=== PATIENT | female | born 1985 | race Caucasian/White ===

== ENCOUNTER 2023-05-07 21:04 | Emergency (ER) | payer OTHER, SELFPAY ==
[2023-05-07 21:06] VITALS: BP 122/69
[2023-05-07 22:01] VITALS: BMI 25.5
--- NOTE | 2023-05-07 22:03 | ED.GENMED ---
History of Present Illness
General
Chief Complaint: Abdominal Pain
Source: patient
Exam Limitations: none
Time Seen by Provider: 05/07/23 21:17
Travel History
Have you had any contact with someone who has COVID-19?: No
Do you have any symptoms of coronavirus? Fever > 100 degrees, chills, cough, shortness of breath, sore throat, loss of taste or smell, muscle aches, or headache?: No
History of Present Illness
History of Present Illness:
This is a 37 year old female that comes in with c/o abd pain. States that she started with some back discomfort yesterday afternoon. States that she was taking Ibuprofen and this seemed to help. Then today she has abd pain in the lower abd and the
Ibuprofen was not helping. Sates that she did have some chills, SOB, nausea, and felt dizzy when she got up as she was laying in bed all day. Denies any fever, chest pain, vomiting, diarrhea, urinary burning.
Past History
Past History
ED Past Medical History: Psychiatric (Anxiety) and Other (Anemia, )
ED Past Surgical History: Gynecological (Ovarian cyst)
Social History
Tobacco: Non-smoker
Alcohol: Occasional
Personal:
Living: with family
Employment: Employed
Review of Systems
Review of Systems
All Other Systems: ROS reviewed and negative except as documented in HPI and ROS
Constitutional: Reports chills; Denies fever
EENT: Reports no symptoms
Respiratory: Reports trouble breathing; Denies cough
Cardiac: Reports no symptoms; Denies chest pain
ABD/GI: Reports abdominal pain and nausea; Denies vomiting or diarrhea
: Reports no symptoms; Denies dysuria, frequency or urgency
Musculoskeletal: Reports no symptoms
Skin: Reports no symptoms
Neurological: Reports dizzy (When she got up); Denies headache
Psychiatric: Reports no symptoms
Phy Exam
General Physical Exam
General Presentation: mild distress
General age: appears stated age
General Skin: warm and dry
General Habitus: normal
General Mental: alert
General Hydration: appears well hydrated
ENT Exam
ENT Exam: TM's normal, pharynx normal and neck supple
Eye Exam
Eye Exam: EOMI
Cardiovascular Exam
Cardiovascular Exam: regular rate/rhythm, no edema, no murmur and normal peripheral pulses
Pulmonary Exam
Pulmonary Exam: lungs clear, no respiratory distress, no rales, chest non tender, no crackles, no rhonchi, no wheezing and no cough
Gastrointestinal Exam
Gastrointestinal Exam: normal bowel sounds, soft, no organomegaly, no pulsatile mass, non distended and tender (Lower abd tenderness with palpation)
Musculoskeletal Exam
Musculoskeletal Exam: full ROM and no edema
Skin Exam
Skin Exam: normal color, warm/dry, no rash and no petechia
Psychiatric Exam
Psychiatric Exam: normal mood/affect
Course
Orders/Labs/Results
Orders:
Orders
05/07/23 21:59
0.9% Sodium Chloride 1000 ml [Nss] 1,000 ml IV BOLUS
Morphine Sulfate 4 mg IV NOW STA
Test Result ONCE
05/07/23 22:00
US Pelvis W Transvag Combined Urgent
Reason For Exam: lOWER ABD PAIN
05/07/23 22:19
Complete Blood Count/With Diff Urgent
Comprehensive Metabolic Panel Urgent
HCG, Serum Qualitative Screen Urgent
Lipase Urgent
05/07/23 22:23
Ondansetron Injectable [Zofran] 4 mg .ROUTE .STK-MED ONE
Ondansetron Injectable [Zofran] 4 mg IV NOW STA
05/07/23 23:46
Urinalysis Reflex To Culture Urgent
Date Specimen was Collected: 05/07/23
Time Specimen was Collected: 23:44
05/08/23 00:00
CT Abd/pelvis W Iv Cont Urgent
Reason For Exam: lOWER ABD PAIN
05/08/23 00:10
Add On- LAB Urgent
Tests Added?: Urine GC, chlamydia
HYDROmorphone [Dilaudid] 1 mg IV NOW STA
Ondansetron Injectable [Zofran] 4 mg IV NOW STA
Abnormal Lab Results
05/07/23 05/07/23
22:19 23:46
WBC 10.9 H 10^3/uL
(4.8-10.8)
RBC 3.95 L 10^6/uL
(4.20-5.40)
Hgb 11.6 L g/dL
(12.0-16.0)
Hct 33.0 L %
(37.0-47.0)
MPV 10.5 H fL
(7.4-10.4)
Abs Immat Gran (auto) 0.1 H 10^3/uL
(0-0.05)
Absolute Neuts (auto) 10.4 H 10^3/uL
(1.4-6.5)
Absolute Lymphs (auto) 0.2 L 10^3/uL
(1.2-3.4)
Neutrophils % 95.0 H %
(42.2-75.2)
Lymphocytes % 1.9 L %
(20.5-51.1)
Sodium 132 L mmol/L
(135-145)
Glucose 120 H mg/dl
(70-99)
Urine Ketones 2+ A
(Negative)
05/07/23 22:19
05/07/23 22:19
H/H slightly low. Sodium slightly low. Glucose nonfasting. Urine negative for infection. Lipase normal at 47, HCG negative.
Vital Signs
Initial and Last Documented VS:
Initial Vital Signs
Temp Pulse Resp BP Pulse Ox
100.1 F 108 22 122/69 100
05/07/23 21:06 05/07/23 21:06 05/07/23 21:06 05/07/23 21:06 05/07/23 21:06
Last Documented Vital Signs
Temp Pulse Resp BP Pulse Ox
100.1 F 90 22 100/54 100
05/07/23 21:06 05/07/23 23:48 05/07/23 21:06 05/08/23 00:00 05/08/23 00:00
MDM/Problems Addressed
Differential Diagnosis Includes:
Ruptured ovarian cyst. Diverticulitis, Appendicitis
MDM/Problems Addressed:
This is a 37 year old female that comes in with c/o lower abd Pain. States that she started yesterday with some back pain. Then today she has abd pain in the lower abd. Patient denies a fever but has a fever here. States that she had chills, felt
SOB and nauseated. State that she took Ibuprofen for but this did not help her pain.
Will get labs, Ultrasound of pelvic and CT if Ultrasound is negative.
Back into see patient. Explained that her US shows that she most likely had a ruptured ovarian cyst. There is free fluid in the pelvis. Questioned patient at this time if there is any vaginal discharge or fowl smell and patient denies. Will the low
grade fever, will get CT to make sure there is not other disease process such as diverticulitis or appendicitis. Patient is in agreement.
Back into see patient. Explained that the CT again shows the free fluid but there is no other acute process such as diverticulitis or appendicitis. Offered patient a pelvic exam but as patient is not having any discharged, fowl smell the likelihood
in PID is low in the differential. Patient will follow up with her [facility]. Explained that this free fluid will be absorbed by the body. Patient can use Tylenol 1000mg every 6 hours and Ibuprofen 600mg every 6 hours with food for pain. Heating pad
may also help control pain. Patient to return with any concerns.
Chronic conditions affecting care: Other (history of ovarian cyst)
Acute Exacerbation and/or Progression of Chronic Illness: Other (Ovarian cyst. )
*Radiology
Radiology exam reviewed: radiology read reviewed (US=mODERATE COMPLEX FREE FLUID IN THE PELVIS THAT MAY BE DUE TO SMALL VOLUME HEMOPERITONEUM, possibly from a ruptured cyst, or possibly gynecologic infection in the appropriate clinical setting.
Uterus is retroflexed and there is suggestion of widened junctional zone suspicious for adenomyosis. ), all reviewed NAD by ED Provider (US cont- Endometrial thickness is 4mm. Multiple right ovary and follicles. Normal doppler flow. Multiple left
ovarian follicles. Normal doppler flow. CT scan night hawk- Small volume intermediate density fluid in the pelvis is nonspecific. This is not bernie hemoperitoneum. The urinary bladder wall) and other (CT cont-is thickened but non distended. This
may indicated cystitis. Correlate with urinalysis. No obstructive uropathy. Small hepatic hypoattenuating lesions are likely simple cyst or small hemangiomas. No evidence of diverticulitis or colitis. Normal appendix. No bowel obstruction. No free
air. )
*Pulse Oximetry
Patient hypoxic: no
*EKG
Interpreted by ED Provider?: NA
Rate: EKG- N/A
*Lining Cementer Interpretation
Rate: Lining Cementer- N/A
*Critical Care Note
Total Time (30-74mins, 75-104mins- exclusive of procedures): Not Applicable
ED Attending Note
-
Portions of this chart may have been created with voice recognition software.� Occasional wrong word or��sound alike� substitutions may have occurred due to the inherent limitations of voice recognition software.
Discharge Plan
Departure
Patient Disposition: Home (Routine Discharge)
Date of Disposition: 05/08/23
Time of Disposition: 01:07
Patient with high blood pressure during this ER visit?: No
Condition: Good
Covid-19: Not Applicable
Discharge Problem:
Rupture of ovarian cyst
Instructions: Ovarian Cyst (DC)
Prescriptions:
No Action
sertraline 25 MG tablet
100 mg PO DAILY
Vitamin Tablet
1 tab PO DAILY
Dha
1 tab PO DAILY
acetaminophen 325 MG tablet
650 mg PO Q4HPRN PRN (Reason: mild pain) 0RF
sennosides-docusate sodium 1 TABLET tablet
1 tab PO DAILYPRN PRN (Reason: constipation) 0RF
ibuprofen 600 MG tablet
400 mg PO Q4HPRN PRN (Reason: moderate pain/cramps) 0RF
Referrals:
PRIVATE,PHYSICIAN [Family Provider] -
Activity Restrictions/Additional Instructions:
As discussed, your blood work shows that your sodium is very slightly low. Your Urine is negative for infection. Your US and CT show that there is free fluid in the pelvis. This is most likely due to a ruptured ovarian cyst. Please follow up with
the [facility] for further evaluation. You may use Tylenol 1000mg every 6 hours for pain and alternate with Ibuprofen 600mg every 6 hours with food for pain. Heating pad may also help with discomfort. IF YOU HAVE INCREASED OR CHANGING PAIN, OR YOU HAVE
ANY OTHER CONCERNS PLEASE RETURN TO THE EMERGENCY ROOM.
Interventions
Interventions:
*Risk Screen - Suicide Last Done: 05/07/23 21:06
*General Assessment Last Done: 05/07/23 21:06
*Neglect/Abuse Screening Last Done: 05/07/23 21:06
ED- Fall Risk Assessment Last Done: 05/07/23 21:06
*ED COVID-19 Vaccine History Last Done: 05/07/23 21:06
ET-[id number]-[id number] Assessment Last Done: 05/07/23 22:25
[2023-05-07] MEDS: MORPHINE SULFATE 4 MG IV (22:19)
[2023-05-07] MEDS: NSS 1000 IV (22:20)
[2023-05-07] MEDS: ZOFRAN 4 MG IV (22:25)
[2023-05-07 22:28] LABS: % Basophils 0.3 % (0-2); % Eosinophils 0.3 % (0-6); % Immature Granulocytes 0.5 % (0-0.5); % Lymphocytes 1.9 % (20.5-51.1); Absolute Immature Granulocytes 0.1 10^3/uL (0-0.05); Absolute Lymphocytes 0.2 10^3/uL (1.2-3.4); Absolute Monocytes 0.2 10^3/uL (0.1-0.6); Absolute Neutrophils 10.4 10^3/uL (1.4-6.5); Hemoglobin 11.6 g/dL (12.0-16.0); Mean Corp Hgb Conc. 35.2 g/dL (33.0-37.0); Mean Corpuscular Hgb 29.4 pg (27.0-31.0); Mean Corpuscular Volume 83.5 fL (81.0-99.0); Mean Platelet Volume 10.5 fL (7.4-10.4); Nucleated Red Blood Cells % 0 %; Platelet Count 146 10^3/uL (130-400); Red Blood Cell Count 3.95 10^6/uL (4.20-5.40); Red Cell Dist. Width 13.1 % (11.5-14.5); White Blood Cell Count 10.9 10^3/uL (4.8-10.8)
[2023-05-07 22:39] LABS: HCG, Serum Qualitative Screen Negative
[2023-05-07 22:43] LABS: ALT (SGPT) 21 U/L (0-35); AST (SGOT) 23 U/L (14-36); Albumin 3.7 g/dl (3.5-5.0); Alkaline Phosphatase 66 U/L (38-126); Blood Urea Nitrogen 10 mg/dl (7-17); Calcium 8.5 mg/dl (8.4-10.2); Carbon Dioxide 24 mmol/L (22-30); Chloride 104 mmol/L (98-107); Estimated Creatinine Clearance 95 ml/min; Glucose 120 mg/dl (70-99); Lipase 47 U/L (23-300); Sodium 132 mmol/L (135-145); Total Bilirubin 0.8 mg/dl (0.2-1.3); Total Protein 6.3 g/dl (6.3-8.2); eGFR > 60.00
[2023-05-07 22:50] LABS: Potassium 4.5 mmol/L (3.5-5.1)
[2023-05-07 23:46] VITALS: BP 105/58
[2023-05-07 23:48] VITALS: BP 105/58
[2023-05-08] VITALS: BP 100/54
[2023-05-08 00:19] LABS: Urine Albumin Negative (Neg - Trace); Urine Bilirubin Negative (Negative); Urine Character Clear (Clear); Urine Color Yellow; Urine Glucose Negative (Negative); Urine Ketone 2+ (Negative); Urine Leukocyte Negative (Negative); Urine Nitrite Negative (Negative); Urine Occult Blood Negative (Negative); Urine Urobilinogen Negative (Neg - 1+)
[2023-05-08] MEDS: DILAUDID 1 MG IV (00:22)
[2023-05-08] MEDS: ZOFRAN 4 MG IV (00:22)
== END 2023-05-08 01:25 | disposition home or self-care (01) ==
LOC: EMR 21:04
PROVIDERS: Clinical Nurse Specialist Family Health; EMERGENCY PHYSICIAN Student in an Organized Health Care Education/Training Program
DX: N83.209 Unspecified ovarian cyst, unspecified side (principal); R10.30 Lower abdominal pain, unspecified; R11.0 Nausea; R42 Dizziness and giddiness; R06.02 Shortness of breath; R50.9 Fever, unspecified; M54.9 Dorsalgia, unspecified; F41.9 Anxiety disorder, unspecified; D64.9 Anemia, unspecified
CPT/HCPCS: 99284; 96374; 96375 ×3; 96361; 74177; 76830; 76856; 80053; 81003; 83690; 84703; 85025; 87491; 87591; Q9967

== ENCOUNTER 2023-05-08 23:00 | Inpatient (IN) | payer OTHER, SELFPAY ==
[2023-05-08] VITALS (40 sets, daily range): BP systolic 50–149; BP diastolic 28–124; BMI 25.7
--- NOTE | 2023-05-08 21:01 | ED.GENMED ---
History of Present Illness
<KATINA Coulter - Last Filed: 05/09/23 00:01>
General
Chief Complaint: Abdominal Symptoms
Source: patient
Exam Limitations: none
Time Seen by Provider: 05/08/23 20:44
Travel History
Have you had any contact with someone who has COVID-19?: No
Do you have any symptoms of coronavirus? Fever > 100 degrees, chills, cough, shortness of breath, sore throat, loss of taste or smell, muscle aches, or headache?: No
History of Present Illness
History of Present Illness:
This is a 37 year old female that was seen here last night with c/o abd pain. Patient returns today with increased abd pain. State that she is nauseated, vomited once last night when she got home and has had diarrhea today. States that she has a
headache and is lightheaded. States that she feels she can't take a deep breath. Denies any fever, chills, chest pain, urinary burning.
Past History
<KATINA Coulter - Last Filed: 05/09/23 00:01>
Past History
ED Past Medical History: Psychiatric (Anxiety) and Other (Anemia, )
ED Past Surgical History: Gynecological (Ovarian cyst)
Social History
Tobacco: Non-smoker
Alcohol: Occasional
Personal:
Living: with family
Employment: Employed
Review of Systems
<KATINA Coulter - Last Filed: 05/09/23 00:01>
Review of Systems
All Other Systems: ROS reviewed and negative except as documented in HPI and ROS
Constitutional: Reports no symptoms; Denies fever or chills
EENT: Reports no symptoms
Respiratory: Reports trouble breathing; Denies cough
Cardiac: Reports no symptoms; Denies chest pain
ABD/GI: Reports abdominal pain, nausea, vomiting and diarrhea
: Reports no symptoms; Denies dysuria, frequency or urgency
Musculoskeletal: Reports no symptoms
Skin: Reports no symptoms
Neurological: Reports dizzy and headache
Psychiatric: Reports no symptoms
Phy Exam
<KATINA Coulter - Last Filed: 05/09/23 00:01>
General Physical Exam
General Presentation: moderate distress
General age: appears stated age
General Skin: warm, dry and pale
General Habitus: normal
General Mental: alert
General Hydration: dry mucous membranes
ENT Exam
ENT Exam: TM's normal, pharynx normal and neck supple
Eye Exam
Eye Exam: EOMI
Cardiovascular Exam
Cardiovascular Exam: regular rate/rhythm, no edema, no murmur and normal peripheral pulses
Gastrointestinal Exam
Gastrointestinal Exam: soft, no organomegaly, no pulsatile mass and other (generalized abd tenderness with palpation. No bowel sounds noted at this time. Abd appears more distended then yesterday. )
Musculoskeletal Exam
Musculoskeletal Exam: full ROM and no edema
Skin Exam
Skin Exam: normal color, warm/dry, no rash and no petechia
Psychiatric Exam
Psychiatric Exam: normal mood/affect
Course
<KATINA Coulter - Last Filed: 05/09/23 00:01>
Orders/Labs/Results
Orders:
Orders
05/08/23 20:52
CT Abd/Pel (IV only)-[facility] only Urgent
Reason For Exam: SOB abd pain
05/08/23 20:54
Test Result ONCE
05/08/23 20:58
Complete Blood Count/With Diff Urgent
Comprehensive Metabolic Panel Urgent
HCG, Serum Qualitative Screen Urgent
Lactic Acid Urgent
Manual Differential Urgent
05/08/23 21:00
0.9% Sodium Chloride 1000 ml [Nss] 1,000 ml IV 2,000 mls/hr
05/08/23 21:01
Ondansetron Injectable [Zofran] 4 mg IV NOW STA
05/08/23 21:05
Fentanyl Citrate/Pf [Sublimaze] 50 mcg IV NOW STA
05/08/23 21:15
NORepinephrine 4 MG/250 ML [Levophed] 4 mg in 250 ml IV PER PROTOCOL
Initial dose in mcg/min, then titrate:: 5
Titrate to keep:: SBP > 90 mmHg
Titrate by mcg/min:: 1-2 mcg/min
Frequency of titrations (minutes):: 5
Maximum dose in ICU in mcg/min:: 30
Maximum dose in IMU in mcg/min:: 8
Maximum dose in IVU in mcg/min:: 4
Begin to taper infusion when:: Remained at goal for 4hrs
Taper by mcg/min:: 1-2 mcg/min
Frequency of taper (minutes) if patient maintains goal:: 30
Taper to off?: Yes
If infusion off & no longer maintaining goal:: Contact Provider
05/08/23 21:19
Type+Screen Urgent
05/08/23 21:42
DOPamine 400 MG/D5W 250 ML [DOPamine 400 MG] 400 mg in 250 ml .ROUTE .STK-MED
05/08/23 21:45
DOPamine 400 MG/D5W 250 ML [DOPamine 400 MG] 400 mg in 250 ml IV PER PROTOCOL
Initial dose in mcg/kg/min, then titrate:: 10
Titrate to keep:: SBP > 90 mmHg
Titrate by mcg/kg/min:: 1-2 mcg/kg/min
Frequency of titrations (minutes):: 15
Maximum dose in ICU in mcg/kg/min:: 20
Maximum dose in IMU in mcg/kg/min:: 10
Begin to taper infusion when:: Remained at goal for 4hrs
Taper by mcg/kg/min:: 1-2 mcg/kg/min
Frequency of taper (minutes) if patient maintains goal:: 30
Taper to off?: Yes
If infusion off & no longer maintaining goal:: Contact Provider
Piperacillin/Tazo 3.375 Gram [Zosyn] 3.375 gram in 50 ml IV NOW
05/08/23 21:46
0.9% Sodium Chloride 1000 ml [Nss] 1,000 ml IV BOLUS
05/08/23 22:04
Fentanyl Citrate/Pf [Sublimaze] 50 mcg IV NOW STA
Prochlorperazine [Compazine] 10 mg .ROUTE .STK-MED ONE
Prochlorperazine [Compazine] 10 mg IV NOW STA
05/08/23 22:06
Consult ASSESSMENT EXPERT [ASSESSMENT EXPERT CONSULT] Urgent
Consulting Provider: Veronica Huntley
Was physician already notified: Yes
Consult Surgery [SURGICAL CONSULT] Urgent
Consulting Provider: Felipe Bowen
Was physician already notified: Yes
05/08/23 22:31
Admit/Transfer Patient As Directed
Co-Sign Provider:
Level of Care: Inpatient admission
Assign to:: ICU
Physician / Group: govind
Diagnosis: peritonitis
Reason for Hospitalization: peritonitis
Expected length of stay greater than two midnights?: Yes
ELOS- Estimated Length of Stay in days: 2
I certify the patient meets the requirements for IP care: Yes
Code Status As Directed
Resuscitation Status: Full Code
05/08/23 22:35
HYDROmorphone [Dilaudid] 1 mg IV NOW STA
05/08/23 22:36
HYDROmorphone [Dilaudid] 1 mg IV Q4HPRN PRN
05/08/23 22:37
Ondansetron Injectable [Zofran] 4 mg IV Q6HPRN PRN
05/08/23 23:00
Flush (0.9% Sodium Chloride) [Flush (Nss)] See Dose Instructions IV PER PROTOCOL
05/08/23 23:35
Blood Culture Q30M
DAMARIS Source: Blood/Venous
Specimen Description:
Blood Culture Q30M
DAMARIS Source: Blood/Venous
Specimen Description:
Abnormal Lab Results
05/08/23
20:58
WBC 2.0 L* 10^3/uL
(4.8-10.8)
RBC 3.61 L 10^6/uL
(4.20-5.40)
Hgb 10.6 L g/dL
(12.0-16.0)
Hct 30.2 L %
(37.0-47.0)
Plt Count 127 L 10^3/uL
(130-400)
MPV 11.9 H fL
(7.4-10.4)
Band Neutrophils 14 H %
(0-3)
Lymphocytes (Manual) 3 L %
(20-51)
Sodium 130 L mmol/L
(135-145)
Carbon Dioxide 15 L mmol/L
(22-30)
BUN 22 H mg/dl
(7-17)
Creatinine 1.5 H mg/dL
(0.6-1.0)
Lactic Acid 6.0 H* mmol/L
(0.7-2.0)
Calcium 7.5 L mg/dl
(8.4-10.2)
AST 41 H U/L
(14-36)
ALT 40 H U/L
(0-35)
Total Protein 5.0 L D g/dl
(6.3-8.2)
Albumin 2.6 L g/dl
(3.5-5.0)
05/08/23 20:58
05/08/23 20:58
Pancytopenia, Bandemia, Dehydration. Lactic acid elevation. H/H low and has dropped 1 gm since last night, Calcium low. AST/ALT mildly elevated. Total protein low. Albumin low. HCG negative,
Repeat Lactic acid increased to 6.8, Repeat H/H slightly lower at 10.3/30.2
Vital Signs
Initial and Last Documented VS:
Initial Vital Signs
Temp Pulse Resp BP Pulse Ox
98.1 F 92 26 68/42 100
05/08/23 20:41 05/08/23 20:41 05/08/23 20:41 05/08/23 20:41 05/08/23 20:41
Last Documented Vital Signs
Temp Pulse Resp BP Pulse Ox
98.1 F 115 29 101/38 96
05/08/23 20:41 05/08/23 23:00 05/08/23 23:00 05/08/23 22:55 05/08/23 23:00
Patient Access Registrar consulted with Physician
Patient Access Registrar consulted with physician?: Yes
Name of Physician Consulted: Dr. Cardenas
<Jerzy Cardenas MD - Last Filed: 05/08/23 23:29>
Orders/Labs/Results
Orders:
Orders
05/08/23 20:52
CT Abd/Pel (IV only)-[facility] only Urgent
Reason For Exam: SOB abd pain
05/08/23 20:54
Test Result ONCE
05/08/23 20:58
Complete Blood Count/With Diff Urgent
Comprehensive Metabolic Panel Urgent
HCG, Serum Qualitative Screen Urgent
Lactic Acid Urgent
Manual Differential Urgent
05/08/23 21:00
0.9% Sodium Chloride 1000 ml [Nss] 1,000 ml IV 2,000 mls/hr
05/08/23 21:01
Ondansetron Injectable [Zofran] 4 mg IV NOW STA
05/08/23 21:05
Fentanyl Citrate/Pf [Sublimaze] 50 mcg IV NOW STA
05/08/23 21:15
NORepinephrine 4 MG/250 ML [Levophed] 4 mg in 250 ml IV PER PROTOCOL
Initial dose in mcg/min, then titrate:: 5
Titrate to keep:: SBP > 90 mmHg
Titrate by mcg/min:: 1-2 mcg/min
Frequency of titrations (minutes):: 5
Maximum dose in ICU in mcg/min:: 30
Maximum dose in IMU in mcg/min:: 8
Maximum dose in IVU in mcg/min:: 4
Begin to taper infusion when:: Remained at goal for 4hrs
Taper by mcg/min:: 1-2 mcg/min
Frequency of taper (minutes) if patient maintains goal:: 30
Taper to off?: Yes
If infusion off & no longer maintaining goal:: Contact Provider
05/08/23 21:19
Type+Screen Urgent
05/08/23 21:42
DOPamine 400 MG/D5W 250 ML [DOPamine 400 MG] 400 mg in 250 ml .ROUTE .STK-MED
05/08/23 21:45
DOPamine 400 MG/D5W 250 ML [DOPamine 400 MG] 400 mg in 250 ml IV PER PROTOCOL
Initial dose in mcg/kg/min, then titrate:: 10
Titrate to keep:: SBP > 90 mmHg
Titrate by mcg/kg/min:: 1-2 mcg/kg/min
Frequency of titrations (minutes):: 15
Maximum dose in ICU in mcg/kg/min:: 20
Maximum dose in IMU in mcg/kg/min:: 10
Begin to taper infusion when:: Remained at goal for 4hrs
Taper by mcg/kg/min:: 1-2 mcg/kg/min
Frequency of taper (minutes) if patient maintains goal:: 30
Taper to off?: Yes
If infusion off & no longer maintaining goal:: Contact Provider
Piperacillin/Tazo 3.375 Gram [Zosyn] 3.375 gram in 50 ml IV NOW
05/08/23 21:46
0.9% Sodium Chloride 1000 ml [Nss] 1,000 ml IV BOLUS
05/08/23 22:04
Fentanyl Citrate/Pf [Sublimaze] 50 mcg IV NOW STA
Prochlorperazine [Compazine] 10 mg .ROUTE .STK-MED ONE
Prochlorperazine [Compazine] 10 mg IV NOW STA
05/08/23 22:06
Consult ASSESSMENT EXPERT [ASSESSMENT EXPERT CONSULT] Urgent
Consulting Provider: Veronica Huntley
Was physician already notified: Yes
Consult Surgery [SURGICAL CONSULT] Urgent
Consulting Provider: Felipe Bowen
Was physician already notified: Yes
05/08/23 22:31
Admit/Transfer Patient As Directed
Co-Sign Provider:
Level of Care: Inpatient admission
Assign to:: ICU
Physician / Group: govind
Diagnosis: peritonitis
Reason for Hospitalization: peritonitis
Expected length of stay greater than two midnights?: Yes
ELOS- Estimated Length of Stay in days: 2
I certify the patient meets the requirements for IP care: Yes
Code Status As Directed
Resuscitation Status: Full Code
05/08/23 22:35
HYDROmorphone [Dilaudid] 1 mg IV NOW STA
05/08/23 22:36
HYDROmorphone [Dilaudid] 1 mg IV Q4HPRN PRN
05/08/23 22:37
Ondansetron Injectable [Zofran] 4 mg IV Q6HPRN PRN
05/08/23 23:00
Flush (0.9% Sodium Chloride) [Flush (Nss)] See Dose Instructions IV PER PROTOCOL
05/08/23 23:35
Blood Culture Q30M
DAMARIS Source: Blood/Venous
Specimen Description:
Blood Culture Q30M
DAMARIS Source: Blood/Venous
Specimen Description:
Abnormal Lab Results
05/08/23
20:58
WBC 2.0 L* 10^3/uL
(4.8-10.8)
RBC 3.61 L 10^6/uL
(4.20-5.40)
Hgb 10.6 L g/dL
(12.0-16.0)
Hct 30.2 L %
(37.0-47.0)
Plt Count 127 L 10^3/uL
(130-400)
MPV 11.9 H fL
(7.4-10.4)
Band Neutrophils 14 H %
(0-3)
Lymphocytes (Manual) 3 L %
(20-51)
Sodium 130 L mmol/L
(135-145)
Carbon Dioxide 15 L mmol/L
(22-30)
BUN 22 H mg/dl
(7-17)
Creatinine 1.5 H mg/dL
(0.6-1.0)
Lactic Acid 6.0 H* mmol/L
(0.7-2.0)
Calcium 7.5 L mg/dl
(8.4-10.2)
AST 41 H U/L
(14-36)
ALT 40 H U/L
(0-35)
Total Protein 5.0 L D g/dl
(6.3-8.2)
Albumin 2.6 L g/dl
(3.5-5.0)
05/08/23 20:58
05/08/23 20:58
Vital Signs
Initial and Last Documented VS:
Initial Vital Signs
Temp Pulse Resp BP Pulse Ox
98.1 F 92 26 68/42 100
05/08/23 20:41 05/08/23 20:41 05/08/23 20:41 05/08/23 20:41 05/08/23 20:41
Last Documented Vital Signs
Temp Pulse Resp BP Pulse Ox
98.1 F 115 29 101/38 96
05/08/23 20:41 05/08/23 23:00 05/08/23 23:00 05/08/23 22:55 05/08/23 23:00
<KATINA Coulter - Last Filed: 05/09/23 00:01>
MDM/Problems Addressed
Differential Diagnosis Includes:
Bowel perforation.
MDM/Problems Addressed:
This is a 37 year old female that comes in with c/o increased abd pain. Patient was seen here last night with abd pain and had US and CT scan. Findings were ruptured ovarian cyst with free fluid in the pelvis. Patient returns today with increased
abd pain, Hypotension
Will get labs and Repeat CT scan. IV fluids 2000ml and will started Levophed due to low pressure.
Patient has been seen by Dr. Cardenas and at this point with have patient on Dopamine and Levophed. Patient appears to be in septic shock. CT was repeated and there is increased abd fluid but no free air. Moderate ascites and unable to visualize the
appendix. Spoke with Dr. Huntley and Dr. Cardenas is speaking with Dr. Bowen. Feel that patient needs to go to the OR.
Patient was seen by DR. Huntley and Dr. Bowen and she will be taken to the OR by Dr. Bowen.
Chronic conditions affecting care:
history of ovarian
Acute Exacerbation and/or Progression of Chronic Illness:
Ovarian cyst
<KATINA Coulter - Last Filed: 05/09/23 00:01>
*Radiology
Radiology exam reviewed: radiology read reviewed (CT- Limited exam without oral contrast. Lack of renal excretion bilaterally. This can be seen with septic shock. Reported hypotension. Mild intrahepatic biliary dilation New. This would better be
evaluated by abd ultrasound. Moderate abdominopelvic ascites. Progressed. Ruptured ovarian cyst not ) and other (CT cont- Ruptured ovarian cyst not excluded. Nonvisualization of the appendix. Acute appendicitis cannot be excluded. )
*Pulse Oximetry
Patient hypoxic: no
*EKG
Interpreted by ED Provider?: Yes
Heart Rate: 101
Rate: tachycardiac
Rhythm: sinus
[place]: normal axis
Interval: normal interval
QRS Pattern: normal QRS
Ischemia: no ischemia (Checked by Dr. Cardenas)
*Block Paver Interpretation
Rate: normal
Heart Rate: 94
Rhythm: sinus
*Critical Care Note
Total Time (30-74mins, 75-104mins- exclusive of procedures): 100 min
ED Attending Note
<KATINA Coulter - Last Filed: 05/09/23 00:01>
-
Portions of this chart may have been created with voice recognition software.� Occasional wrong word or��sound alike� substitutions may have occurred due to the inherent limitations of voice recognition software.
<Jerzy Cardenas MD - Last Filed: 05/08/23 23:29>
ED Attending Note
Patient seen and examined by attending physician: Yes
ED Attending Note:
Patient seen in ED yesterday secondary to lower abdominal pain, returns to ED tonight with worsening pain, along with nausea, vomiting, and diarrhea. Denies fever. Patient reports chills sensation as well as abdominal distention. Abdominal pain
described this sharp, diffuse, without any alleviating or exacerbating factors. Denies trauma. Denies back pain. Denies difficulty with urination. Patient states that her pain is similar to last night, but worse. Denies previous history of
similar symptoms.
Physical Exam
General: severe distress, acutely ill. afebrile. hypotensive, pale appearing
Head: nc/at. eomi
Neck: supple. normal range of motion.
Heart: s1/s2 regular rate and rhythm, no murmur. equal radial pulses.
Lungs: no acute respiratory distress. clear bilaterally
Abdomen: mild distention with moderate diffuse tenderness to palpation. guarding noted.
Neuro: alert and oriented. no focal neurological deficits
Skin: no rash
Psychiatric: well kept. interactive and cooperative
Extremities: no edema. no calf tenderness.
Pt with persistent hypotension despite 2 L IV fluid bolus. As such, decision made to start third liter IV fluid along with Levophed infusion. Unfortunately at the max dose of Levophed infusion, patient noted to remain hypotensive with systolic
blood pressure in 80s. As such, dopamine infusion also started at the same time. Empiric antibiotics, Zosyn, given.
Blood work remarkable for leukopenia as well as thrombocytopenia, anemia, along with elevated lactate level.
Stat CT abdomen pelvis with IV contrast ordered. As soon as it was completed, discussed with radiologist regarding abnormal findings.
Patient evaluated in ED by Dr. Huntley, TUBE COREMAKER, who feels that patient's presentation warrants surgical evaluation, but less likely secondary to ruptured ovarian cyst
Patient evaluated by Dr. Bowen, surgery. Decision made to proceed to the OR for exploratory evaluation.
Vital signs improving with provided medication. Patient reports mild improvement symptoms as well with multiple medications.
Critical care statement: A total of 100 minutes of critical care time was provided for this patient. This includes management of unstable vital signs, evaluation of the patient at bedside, reviewing the patient's pertinent medical records,
discussion with consultants, review of old EKGs and review of pertinent medical records. This time with separate from time utilized to perform the aforementioned documented procedures
Discharge Plan
Departure
Patient Disposition: Admit
Date of Disposition: 05/08/23
Time of Disposition: 22:02
Admit to: ICU
Presentation/result/management discussed w/ accepting MD/DO: Hospitalist
Patient with high blood pressure during this ER visit?: No
Condition: Critical
Covid-19: Not Applicable
Discharge Problem:
Septic shock, Abdominal pain
Interventions
Interventions:
*Risk Screen - Suicide Last Done: 05/08/23 20:41
*General Assessment Last Done: 05/08/23 20:41
*Neglect/Abuse Screening Last Done: 05/08/23 20:41
PY-Neyucf-Qaxhdgdrsy Assessment Last Done: 05/08/23 22:45
[2023-05-08 21:25] LABS: Hematocrit 30.2 % (37.0-47.0); Hemoglobin 10.6 g/dL (12.0-16.0); Mean Corp Hgb Conc. 35.1 g/dL (33.0-37.0); Mean Corpuscular Hgb 29.4 pg (27.0-31.0); Mean Corpuscular Volume 83.7 fL (81.0-99.0); Mean Platelet Volume 11.9 fL (7.4-10.4); Platelet Count 127 10^3/uL (130-400); Red Blood Cell Count 3.61 10^6/uL (4.20-5.40); Red Cell Dist. Width 13.2 % (11.5-14.5)
[2023-05-08 21:38] LABS: HCG, Serum Qualitative Screen Negative
[2023-05-08] MEDS: NSS 1000 IV ×3 (21:41→21:57)
[2023-05-08 21:43] LABS: AST (SGOT) 41 U/L (14-36); Albumin 2.6 g/dl (3.5-5.0); Alkaline Phosphatase 40 U/L (38-126); Blood Urea Nitrogen 22 mg/dl (7-17); Calcium 7.5 mg/dl (8.4-10.2); Carbon Dioxide 15 mmol/L (22-30); Chloride 100 mmol/L (98-107); Glucose 86 mg/dl (70-99); Potassium 3.7 mmol/L (3.5-5.1); Sodium 130 mmol/L (135-145); Total Bilirubin 1.1 mg/dl (0.2-1.3); eGFR 45.74
[2023-05-08 21:48] LABS: Absolute Neutrophils -Man Diff 1.6 10^3/uL (1.4-6.5); Band Neutrophils 14 % (0-3); Eosinophils 3 % (0-6); Lymphocytes 3 % (20-51); Monocytes 4 % (2-9); Segmented Neutrophils 66 % (42-75)
[2023-05-08 21:49] LABS: Atypical Lymphocytes 3 %; Metamyelocytes 5 % (-); Myelocytes 2 % (-); Normal RBC Morphology Yes; Platelets Checked Yes; Total Cells Counted 100
[2023-05-08 21:51] LABS: ALT (SGPT) 40 U/L (0-35)
[2023-05-08] MEDS: DOPamine 400 MG 250 IV (21:54)
[2023-05-08] MEDS: SUBLIMAZE 50 MCG IV ×2 (21:56→22:12)
[2023-05-08] MEDS: ZOFRAN 4 MG IV (21:56)
[2023-05-08] MEDS: ZOSYN 50 IV (22:13)
[2023-05-08] MEDS: COMPAZINE 10 MG IV (22:13)
--- NOTE | 2023-05-08 22:39 | HPS.HSE ---
Family Physician
-
Family Physician: * NONE
Chief Complaint
-
abdominal pain
History of Present Illness
37-year-old female past medical history of ovarian cysts status post cystectomy twice most recently in 2013, anxiety, anemia, presenting with abdominal pain.
She came to the emergency room last night with back discomfort improving with ibuprofen and then abdominal pain in the lower abdomen. She also had chills, shortness of breath, nausea and felt dizzy with she got up. She denies any fever, chest
pain, vomiting or diarrhea or urinary symptoms. Patient had ultrasound which showed that she most likely had a ruptured ovarian cyst given free fluid in the pelvis. Patient had CT afterwards which again showed free fluid in the dependent pelvis
which may sequela of recently ruptured adnexal cyst.
Patient came back to the hospital today for worsening abdominal pain. She is nauseated and vomited once last night. She had diarrhea today. She has headache and lightheadedness. She feels like she cannot take a deep breath. She denies any
fevers, chills, chest pain or urinary symptoms.
Patient states that she has a history of ovarian cyst bilaterally with history of 2 cystectomies most recent in 2013. She denies history of oophorectomy. She states that she has had this since then which come and go that are asymptomatic.
Medical History
Past Medical History
Past Medical History: Reports Other (ovarian cysts status post cystectomy twice most recently in 2013, anxiety, anemia)
Past Surgical History: Reports Gynocological
Social History
Tobacco: Non-smoker
Alcohol: Occasional
Drug: None
Family History
Family History: Not pertinent
Allergies / Home Medications
Allergies reflects when Allergies were last updated in [employer].
Home Medications with original date entered in [employer]
Allergy/Medication List:
Allergies
Allergy/AdvReac Type Severity Reaction Status Date / Time
No Known Allergies Allergy Verified 05/07/23 21:06
Home Medications
sertraline 25 mg tablet 100 mg PO DAILY Mental Health/Anxiety 04/26/18
Dha 1 tab PO DAILY Supplement 11/18/19
Vitamin Tablet 1 tab PO DAILY Supplement 11/18/19
acetaminophen 325 mg tablet 650 mg PO Q4HPRN PRN mild pain 11/19/19
ibuprofen 600 mg tablet 400 mg PO Q4HPRN PRN moderate pain/cramps 11/19/19
sennosides 8.6 mg-docusate sodium 50 mg tablet 1 tab PO DAILYPRN PRN constipation 11/19/19
Review of Systems
-
History Source: Patient
A 12 point ROS was completed and negative except as noted: Yes
Constitutional: Reports No Symptoms
EENT: Reports No Symptoms
Respiratory: Reports No Symptoms
Cardiac: Reports No Symptoms
Abdomen/GI: Reports See HPI
: Reports No Symptoms
Musculoskeletal: Reports No Symptoms
Skin: Reports No Symptoms
Neurological: Reports No Symptoms
Endocrine: Reports No Symptoms
Hematologic/Lymphatic: Reports No Symptoms
Psych: Reports No Symptoms
Physical Exam
Vital Signs
Vital Signs
Temp Pulse Resp BP Pulse Ox
98.1 F 92 26 68/42 100
05/08/23 20:41 05/08/23 20:41 05/08/23 20:41 05/08/23 20:41 05/08/23 20:41
Physical Exam
General: Well Developed, Well Nourished and No Apparent Distress
HEENT: NormoCephalic, Moist mucous membranes and Atraumatic
Respiratory: Clear
Cardiac: S1/S2 and Regular Rhythm; No Murmur or Rub
GI: Soft, Non Distended, Normal Bowel Sounds and Tender (diffusely tender, peritoneal signs present ); No Organomegaly
Rectal: Deferred by Provider
Musculoskeletal: No Clubbing, No Cyanosis and No Edema
Skin: No Rash
Neuro: Nonfocal/grossly intact
Laboratory Results
-
05/08/23 20:58
05/08/23 20:58
Laboratory Results
Lactic Acid 6.0 mmol/L (0.7-2.0) H* 05/08/23 20:58
Total Bilirubin 1.1 mg/dl (0.2-1.3) 05/08/23 20:58
AST 41 U/L (14-36) H 05/08/23 20:58
ALT 40 U/L (0-35) H 05/08/23 20:58
Alkaline Phosphatase 40 U/L (38-126) 05/08/23 20:58
Data Reviewed
-
Lab Data: Labs Reviewed by me
Old Records: Reviewed
Impression/Plan
-
IMPRESSION:
PLAN:
# Severe septic shock (leukopenia, hypotension ) secondary to ruptured ovarian cyst versus possible appendicitis and possible resulting peritonitis/hemoperitoneum
-Patient with guarding/peritoneal signs on examination
-hCG negative
-CT abdomen pelvis today shows mild intrahepatic biliary dilatation, moderate abdominal pelvic ascites which is progressed without free air, acute appendicitis cannot be excluded
-N.p.o. including oral meds
-IV fluids
-Check blood cultures
-Zosyn
-Levophed and dopamine drip started
-Hemoglobin of 10.6 from 11.6 yesterday, continue to monitor carefully q6 hpurs to evaluate for hemoperitoneum
-DISH TECHNICIAN not convinced this is due to ovarian cyst rupture
-General surgery to evaluate bedside
History of frequent ovarian cysts status post cystectomies most recently 2013
# Acute kidney injury
-IV fluids
Anxiety
-Hold sertraline
Full code
DVT prophylaxis�SCDs
NPO
[2023-05-08] MEDS: DILAUDID 0.5 MG IV (23:00)
--- NOTE | 2023-05-08 23:13 | CON.GS ---
Medical History
-
Chief Complaint: Abdominal pain
History of Present Illness:
Patient is a 37 yo F with a PMH of ovarian cysts s/p laparoscopic drainage and removal x 2 who presents to the ER with worsening abdominal pain. Ms. Hart states that her symptoms began acutely several days ago. She describes initially lower
pelvic and back pain which then progressed to generalized abdominal pain. She was evaluated in the ER yesterday with a mild leukocytosis but otherwise normal labs and a CT scan which demonstrated pelvic fluid concerning for a possible ruptured
ovarian cyst, normal appendix and bowel. Associated nausea and vomiting x 2 over the past 12 hours. She does report some nonbloody diarrhea over the past 12 hours. No fevers or chills. She has never had symptoms like this previously
Past Medical History
Past Medical History: Psychiatric (Anxiety) and Other (Ovarian cysts)
Past Surgical History: Gynecological (Laparoscopic ovarian cystectomy x 2)
Social History
Tobacco: Non-Smoker
Alcohol: Occasional
Drug: None
Personal:
Living: With Family
Employment: Employed
Family History
Family History: Reviewed & Noncontributory
Allergies / Home Medications
Allergy/AdvReac Type Severity Reaction Status Date / Time
No Known Allergies Allergy Verified 05/07/23 21:06
Medication Instructions Recorded Confirmed Type
sertraline 25 mg tablet 100 mg PO DAILY Mental 04/26/18 11/18/19 History
Health/Anxiety
Dha 1 tab PO DAILY Supplement 11/18/19 11/18/19 History
Vitamin Tablet 1 tab PO DAILY Supplement 11/18/19 11/18/19 History
acetaminophen 325 mg tablet 650 mg PO Q4HPRN PRN mild pain 11/19/19 Rx
ibuprofen 600 mg tablet 400 mg PO Q4HPRN PRN moderate 11/19/19 Rx
pain/cramps
sennosides 8.6 mg-docusate sodium 1 tab PO DAILYPRN PRN constipation 11/19/19 Rx
50 mg tablet
Review of Systems
-
A 10 point review of systems was completed, and was negative except as per HPI.
Physical Exam
Vital Signs
Temp Pulse Resp BP Pulse Ox
98.1 F 115 29 101/38 96
05/08/23 20:41 05/08/23 23:00 05/08/23 23:00 05/08/23 22:55 05/08/23 23:00
Lab Results
05/08/23 20:58
WBC 2.0 10^3/uL (4.8-10.8) L* 05/08/23 20:58
Hgb 10.6 g/dL (12.0-16.0) L 05/08/23 20:58
Hct 30.2 % (37.0-47.0) L 05/08/23 20:58
Plt Count 127 10^3/uL (130-400) L 05/08/23 20:58
Physical Exam
General: Pain
HEENT: Normocephalic and Anicteric
Respiratory: Non Labored Respirations
Cardiac: Irregular Rhythm (Tachycardic)
GI: Soft, Tender (Diffusely predominantly in the LLQ), Distended (Mild tympany) and Other (Concern for early peritonitis with tenderness to percussion, no rebound or guarding)
Musculoskeletal: No Edema
Skin: Warm and Dry
Neuro: Nonfocal/Grossly Intact
Data Reviewed
-
CT Scan: Image Personally Visualized and interpreted and Report Reviewed by me
Labs: Labs Reviewed by me
Old Records: Reviewed
Assessment / Plan
-
Patient is a 37 yo F p/w hypovolemic shock
Unknown exact cause for shock and abdominal pain. Differential includes ruptured ovarian cyst with bleeding cauterizing peritonitis and severe hypotension. Differential also includes bowel ischemia or perforation though less likely with a negative
CT scan x 2. Options for management at this time including admission to the ICU with aggressive resuscitation and close monitoring versus proceeding with surgical exploration were considered and discussed. The pros and cons of both approaches was
discussed. Specifically, we discussed risks of further clinical deterioration with a watchful waiting approach versus surgical risks of injury to abdominal viscera, delayed recovery secondary to abdominal pain and wound healing, and hernia
formation. We did discussed the possibility of a negative exploration. Patient would like to proceed with surgical exploration.
Plan for an exploratory laparotomy. The procedure itself, as well as the risks, benefits, and alternatives was discussed. Specifically, we discussed the risks of bleeding, infection, injury to surrounding structures (bowel, bladder), and general
anesthetic complications. Typical postprocedural recovery was discussed. All questions answered. Consent signed.
-- Exploratory laparotomy
-- NPO, IVF
-- Zosyn for perioperative antibiotics
-- Admit to ICU post-operatively
--- NOTE | 2023-05-08 23:28 | W.SUR.PREOP ---
Pre-Operative Surgical Note
-
I have examined this patient prior to the performance of the scheduled procedure.
The patient's condition is unchanged from the time of the current History and
Physical and the patient is able to undergo the scheduled procedure.
[2023-05-08 23:41] LABS: Hematocrit 30.2 % (37.0-47.0); Hemoglobin 10.3 g/dL (12.0-16.0)
[2023-05-08 23:57] LABS: Lactic Acid 6.8 mmol/L (0.7-2.0)
--- NOTE | 2023-05-08 23:59 | CON.MD ---
Consultation - Medical
-
37yo presented to the ER today due to abdominal pain, nausea, vomiting, diarrhea and light headedness today. She states she had sudden onset of abdominal pain 3 days ago, got progressively worse. Was seen in the ER yesterday and was suspected
to have a ruptured ovarian cyst, there was a small amount of free fluid in the pelvis noted on CT A/P and Pelvic US. (She does have a h/o ovarian cystectomy x 2). She was subsequently discharged. However today noticed progression of pain, with the
aforementioned symptoms. Of note denies fever. She had repeat CT scan today which showed progression of ascites in the abdomen and pelvis. While in the ER she was noted to be hypotensive, tachycardic and tachypnic, requiring pressors to maintain her
BP. She was also noted to have low WBC and elevated lactic acid, concern for septic shock.
PMHX: Anxiety, anemia
PSHX: Open Ovarian cystectomy 2003, 2012
POBHx: x3, SAB x1
PGYNHx: Ovarian Cysts
FHx:None
SHx:non smoker, occ etoh, no ill
Meds: See Med List
All: NKDA
ROS: per HPI. no abnormal bleeding
Gen: patient shivering but aao
Abd: diffusely ttp, +guarding
CT A/P: Moderate abdominopelvic ascites. non visualization of the appendix, Mild intrahepatic biliary dilatation. Lack of renal excretion bilaterally.
A/P: 37yo with septic shock
1. Unclear if this is related to a ruptured ovarian cyst, seems unlikely to me, though suggestion has been made that cyst rupture has resulted in peritonitis. This can be seen with a dermoid- causing a chemical peritonitis. Hemoglobin is not
significantly changed thus low suspicion that this is an actively bleeding hemorrhagic cyst. Aware that Gen Surgery has spoken to the patient and plans to do exp lap. I can be available should any ovarian pathology be encountered.
Vital Signs / Labs
-
Vital Signs and Labs:
Temp Pulse Resp BP Pulse Ox
98.1 F 106 32 124/46 93
05/08/23 20:41 05/09/23 00:00 05/09/23 00:00 05/09/23 00:00 05/09/23 00:00
05/08/23 23:35
05/08/23 20:58
05/08/23 05/08/23
20:58 23:35
WBC 2.0 L*
RBC 3.61 L
Hgb 10.6 L 10.3 L
Hct 30.2 L 30.2 L
Plt Count 127 L
MPV 11.9 H
Band Neutrophils 14 H
Lymphocytes (Manual) 3 L
Sodium 130 L
Carbon Dioxide 15 L
BUN 22 H
Creatinine 1.5 H
Lactic Acid 6.0 H* 6.8 H*
Calcium 7.5 L
AST 41 H
ALT 40 H
Total Protein 5.0 L D
Albumin 2.6 L
[2023-05-09] VITALS (37 sets, daily range): BP systolic 76–124; BP diastolic 46–84; BMI 26.5
--- NOTE | 2023-05-09 01:36 | W.PN.UPDATE ---
Update Note
Progress Note Update
intra-op consult with Gen Surgery. I was informed that abdomen was full of purulent fluid, bowel appears unaffected but there is an area of erythema along the posterior aspect of the right ovary. On further inspection both tubes appear edematous
likely related to inflammation and on the right side there is a thin exudate noted on the surface of the tubal fimbriae and ovarian serosa. However, neither tubes nor ovaries appear necrotic. No cystic mass or obvious abscess is seen, thus I did not
recommend removal of either tube or ovary at this time.
--- NOTE | 2023-05-09 02:20 | W.IMMPOSTOP ---
Addendum entered and electronically signed by Felipe Bowen MD 05/09/23 02:37:
[facility]#[id number]
Original Note:
Surgical Immed Post Op Note
-
Primary Surgeon: Andrés
Assisting Surgeon: Dm
Pre-op Diagnosis: Abdominal abscess
Post-op Diagnosis: Ruptured tuboovarian abscess
Procedure Performed: Exploratory laparotomy
Anesthesia Type: General
Specimen / Cultures: Abdominal fluid for culture
Estimated Blood Loss: 7 cc
Complications: None
Operative Findings:
1. Thin purulence throughout abdomen, majority within pelvis, RIGHT ovary and tube inflamed and edematous
2. No inflammation/adhesions of bowel, no perforation, no bilious ascites (all bowel evaluated stomach, duodenum, SB, appendix, and entire colon), leak test of stomach and colon
3. INTENSIVE CARE NURSE consultation, no intervention deemed necessary
4. 19 Fr Justyn drain into pelvis
[2023-05-09] MEDS: SUBLIMAZE 100 IV ×2 (02:32→19:15)
[2023-05-09] MEDS: LEVOPHED 250 IV ×4 (02:33→09:02)
[2023-05-09] MEDS: NSS 1000 IV (03:19)
[2023-05-09] MEDS: PRECEDEX 100 IV ×3 (03:23→23:05)
[2023-05-09] MEDS: PITRESSIN 100 IV ×3 (03:23→17:29)
[2023-05-09 03:32] LABS: B.E. -13.8 mmol/L; O2 Saturation % 99.3 % (94-98); PCO2 38 mmHg (32-35); PO2 132 mmHg (83-108); Sodium 130 mMOL/L (136-145)
[2023-05-09] MEDS: NSS 500 IV (03:39)
[2023-05-09 03:40] LABS: Hematocrit 32.2 % (37.0-47.0); Hemoglobin 10.9 g/dL (12.0-16.0); Mean Corp Hgb Conc. 33.9 g/dL (33.0-37.0); Mean Corpuscular Hgb 29.3 pg (27.0-31.0); Mean Corpuscular Volume 86.6 fL (81.0-99.0); Mean Platelet Volume 11.4 fL (7.4-10.4); Platelet Count 198 10^3/uL (130-400); Red Blood Cell Count 3.72 10^6/uL (4.20-5.40); Red Cell Dist. Width 13.4 % (11.5-14.5); White Blood Cell Count 4.1 10^3/uL (4.8-10.8)
[2023-05-09 03:41] LABS: HCO3 13.9 mmol/L (21-28); O2 Therapy %Oxygen/Room Air 80; pH 7.17 (7.35-7.45)
--- NOTE | 2023-05-09 03:41 | W.PN.SEPSIS ---
Sepsis
Vital Signs
Temp Pulse Resp BP Pulse Ox
98.1 F 106 32 124/46 99
05/08/23 20:41 05/09/23 00:00 05/09/23 00:00 05/09/23 00:00 05/09/23 02:21
Physical Exam
Physical Exam:
A focused exam was performed after fluid resuscitation.
Capillary Refill
Bilateral Lower Extremity:
Jaylen Time: Less than 3 sec
Pulse Evaluation
Dorsalis Pedis:
Pulse Evaluation: Present
[2023-05-09 03:45] LABS: APTT 38.3 Sec (23.4-35.0); PT 23.4 Sec (11.4-14.6)
[2023-05-09 03:55] LABS: Magnesium 1.4 mg/dl (1.6-2.3)
[2023-05-09 03:57] LABS: ALT (SGPT) 66 U/L (0-35); AST (SGOT) 107 U/L (14-36); Albumin 2.1 g/dl (3.5-5.0); Alkaline Phosphatase 41 U/L (38-126); Blood Urea Nitrogen 17 mg/dl (7-17); Carbon Dioxide 12 mmol/L (22-30); Chloride 104 mmol/L (98-107); Estimated Creatinine Clearance 55 ml/min; Glucose 148 mg/dl (70-99); NT-proBNP 7920 pg/ml; Potassium 3.2 mmol/L (3.5-5.1); Sodium 133 mmol/L (135-145); Total Bilirubin 0.8 mg/dl (0.2-1.3); Total Protein 4.3 g/dl (6.3-8.2); eGFR 59.79
[2023-05-09] MEDS: SODIUM BICARBONATE 100 MEQ IV (03:57)
[2023-05-09] MEDS: KCL 100 IV ×2 (03:57→23:05)
[2023-05-09 04:02] LABS: Lactic Acid 4.7 mmol/L (0.7-2.0)
[2023-05-09] MEDS: MAGNESIUM SULFATE 50 IV (04:12)
[2023-05-09] MEDS: CALCIUM CHLORIDE 10% SYRINGE 60 MG IV (04:12)
[2023-05-09] MEDS: SUBLIMAZE 50 MCG IV ×5 (04:26→20:27)
[2023-05-09] MEDS: NEO-SYNEPHRINE 250 IV ×4 (04:35→19:15)
[2023-05-09 04:57] LABS: B.E. -10.5 mmol/L; Ionized Calcium 0.97 mMOL/L (1.15-1.33); O2 Saturation % 98.5 % (94-98); PCO2 30 mmHg (32-35); PO2 150 mmHg (83-108)
[2023-05-09 05:00] LABS: O2 Therapy 80%
[2023-05-09 05:01] LABS: HCO3 14.8 mmol/L (21-28)
[2023-05-09] MEDS: TYLENOL PO (05:14)
[2023-05-09] MEDS: SODIUM BICARBONATE 1150 MEQ IV ×3 (05:14→19:16)
[2023-05-09 05:19] LABS: Hematocrit 32.2 % (37.0-47.0); Mean Corp Hgb Conc. 34.2 g/dL (33.0-37.0); Mean Corpuscular Hgb 29.2 pg (27.0-31.0); Mean Corpuscular Volume 85.4 fL (81.0-99.0); Mean Platelet Volume 11.7 fL (7.4-10.4); Nucleated Red Blood Cells % 0 %; Platelet Count 206 10^3/uL (130-400); Red Blood Cell Count 3.77 10^6/uL (4.20-5.40); Red Cell Dist. Width 13.5 % (11.5-14.5); White Blood Cell Count 3.9 10^3/uL (4.8-10.8)
--- NOTE | 2023-05-09 05:19 | PTCARENOTE ---
0200- patient received from OR. per OR nurse, washout completed, abdominal fluid culture sent. RIJ CVC,left radial arterial line, collins, and NGT placed in OR. received patient intubated and on levo, vaso, and IVF gtts. #7 ETT. 22 at lip. placement
checked via auscultation for NGT. CXR ordered by ICU COUNTERINTELLIGENCE SPECIALIST for AM. midline abdominal incision dressing C/D/I, ascites noted. TARIQ drain in RLQ, serosanguineous fluid, 70ml upon arrival to ICU. collins 225ml upon arrival to ICU.
pt continued to decompensate after arrival to ICU, BP gradually dropping. calvin gtt added. lytes repleted, bicarb given - see JUN. IVF with bicarb added. precedex and fentanyl gtts initiated for sedation. patient arouses to voice and stimuli. b/l soft
wrist restraints placed. clear breath sounds noted, vent settings: AC 20-480-5-60%. ETT to R side of mouth. SR/ST on monitor. pressors infusing to maintain MAP >65. pt afebrile, rectal probe in place. + pedal pulses noted. distended abdomen, NPO
status. NGT in R nare connected to LIS. TARIQ drain continues with serosanguineous drainage. collins in place, draining clear yellow urine. RIJ CBC, REJ, L radial A Line, [address] arterial line leveled and zeroed, + blood return. patient
currently on levo, vaso, calvin, precedex, fentanyl, and bicarb gtts. lytes and abx infusing. skin intact, foam placed on sacrum for protection. foot pumps in place. CHG bath completed upon arrival. labs sent. at bedside and informed on ongoing
plan of care with ICU COUNTERINTELLIGENCE SPECIALIST. patient care ongoing.
[2023-05-09 05:23] LABS: Band Neutrophils 52 % (0-3); Eosinophils 2 % (0-6); Lymphocytes 1 % (20-51); Metamyelocytes 17 % (-); Monocytes 0 % (2-9); Myelocytes 3 % (-); Platelets Checked Yes; Segmented Neutrophils 25 % (42-75)
[2023-05-09 05:24] LABS: Normal RBC Morphology Yes; Total Cells Counted 100; Toxic Granulation 3+; Vacuolated Segs 2+
[2023-05-09] MEDS: ZOSYN 50 IV ×2 (05:33→09:47)
--- NOTE | 2023-05-09 07:43 | CON.INTV ---
Consultation
Consultation Request
Date/Time Consultation Requested: 05/09/2023-7 AM
Date/Time Consultation Performed: 05/09/2023-7:30 AM
Requesting Provider: Hospitalist
Performing Provider: Dr. Covington
Reason for Consultation: Septic shock/ventilator/critical care management
Medical History
-
Chief Complaint: Septic shock
History of Present Illness:
37-year-old female with a history of ovarian cyst status post cystectomy's twice with most recent in 2013 presented with abdominal pain, chills, shortness of breath, nausea and CT chest showed free fluid in the dependent pelvis felt to be sequelae
of recent ruptured adnexal cyst, however with abdominal pain and sepsis patient went to the OR 05/08/2023-thin purulence throughout abdomen majority within pelvic, right ovary and tube inflamed and edematous-digital analyst consulted for septic
shock/pressor/ventilator/critical care management 05/09/2023. Patient is alert on the ventilator, complaining of discomfort from nasogastric tubes and some abdominal pain but no shortness of breath, chest congestion, or weakness. Difficult to
communicate with on the ventilator.
Past Medical History
Past Medical History: None (Ovarian cyst status post laparoscopic drainage and removal twice before. Anxiety.)
Social History
Tobacco: Non-smoker
Alcohol: Occasional
Drug: None
Personal:
Living: With Family
Occupational Exposures: No known asbestos exposure
Environmental Exposures: no known tuberculosis exposure
Family History
Family History: Reviewed & Not Pertinent
Allergies / Home Medications
Allergies
Allergy/AdvReac Type Severity Reaction Status Date / Time
No Known Allergies Allergy Verified 05/07/23 21:06
Home Medications
Medication Instructions Recorded Confirmed Last Taken Type
sertraline 25 mg tablet 100 mg PO DAILY Mental 04/26/18 11/18/19 11/17/19 22:00 History
Health/Anxiety
Dha 1 tab PO DAILY Supplement 11/18/19 11/18/19 11/17/19 22:00 History
Vitamin Tablet 1 tab PO DAILY Supplement 11/18/19 11/18/19 11/17/19 22:00 History
acetaminophen 325 mg tablet 650 mg PO Q4HPRN PRN mild pain 11/19/19 Unknown Rx
ibuprofen 600 mg tablet 400 mg PO Q4HPRN PRN moderate 11/19/19 Unknown Rx
pain/cramps
sennosides 8.6 mg-docusate sodium 1 tab PO DAILYPRN PRN constipation 11/19/19 Unknown Rx
50 mg tablet
Review of Systems
-
Unable to Obtain full review of systems at this time due to: Other (Per HPI)
Vitals / Labs / Diagnostic Testing
Vital Signs
Temp Pulse Resp BP Pulse Ox
100 F 102 21 84/63 99
05/09/23 06:48 05/09/23 07:16 05/09/23 07:16 05/09/23 07:16 05/09/23 07:16
Laboratory Results
05/09/23 05/09/23
03:10 04:52
PT 23.4 H
INR 2.10
APTT 38.3 H
pH 7.17 L* 7.30 L
pCO2 38 H 30 L
pO2 132 H 150 H
HCO3 13.9 L* 14.8 L*
O2 Delivery Level %oxygen/room air 80 80%
Diagnostic Testing:
Physical Exam
-
Exam:
Well-nourished and well-developed in no apparent distress
HEENT-atraumatic, normocephalic, oral tracheal intubation, nasogastric tube in place
Neck-supple, no JVD, no bruit
Heart-regular rate and rhythm-no murmurs, rubs or gallops
Chest-clear to auscultation, no wheezes, crackles
Abdomen-soft, distended, hypoactive bowel sounds, surgical bandages not removed
Extremities-no cyanosis, clubbing, edema and good peripheral pulses
Integument-intact, no rashes, lesions or ecchymosis
Neurology-alert and oriented, nonfocal motor and sensory exam
Assessment
-
37-year-old female with a history of ovarian cyst status post cystectomy's twice with most recent in 2013 presented with abdominal pain, chills, shortness of breath, nausea and CT chest showed free fluid in the dependent pelvis felt to be sequelae
of recent ruptured adnexal cyst, however with abdominal pain and sepsis patient went to the OR 05/08/2023-thin purulence throughout abdomen majority within pelvic, right ovary and tube inflamed and edematous-digital analyst consulted for septic
shock/pressor/ventilator/critical care management 05/09/2023.
Assessment
Septic shock unresponsive to fluids requiring triple pressors
Ruptured right tubo-ovarian abscess with peritonitis
Status post exploratory laparotomy with washout on 05/08/2023
Ventilator dependent respiratory failure-severe acidosis-postoperative
Intubated 05/08/2023
Extubated
Metabolic acidosis
Lactic acidosis
FELICITY
Hyponatremia-130
Hypokalemia
Hypocalcemia
Neutropenia secondary to sepsis-WBC 2.0
Anemia-hemoglobin 10.6-normocytic
Mild thrombocytopenia-platelet count 127
Coagulopathy secondary to sepsis
Conditions present prior to admission:
Ovarian cyst status post laparoscopic drainage and removal twice before.
Anxiety.
Anemia
Plan
Admit patient to medical intensive care unit for persistent hypotension despite fluid resuscitation requiring pressors
Patient intubated
Ventilator settings reviewed
Airway pressures adequate
Wean FiO2
Increase minute ventilation
Follow ABG
Aspiration precautions
VAP prevention protocol
Nebulizers if needed-currently not bronchospastic
Cultures reviewed-unrevealing thus far
Chlamydia and Neisseria-negative
MRSA screen-pending
Exploratory laparotomy wound cultures-pending including anaerobic
Blood cultures pending
Empiric antibiotics
Consider Infectious disease consultation
Monitor leukocytosis
Fluid resuscitation with 30 mL/kg crystalloid-preferably lactated ringer-(less FELICITY) with subsequent boluses as needed
Monitor lactate
Follow CVP if possible
Attempt noninvasive bedside tissue perfusion evaluation to see if fluid bolus responsive
Measure pulse pressure and stroke volume variation if patient on ventilator, passively breathing without arrhythmia and with temporary large tidal volume ventilation and if > 13% then likely fluid bolus responsive
If patient active then consider measuring bedside leg lift for 3 minutes and if cardiac output increases or if there is a rise of 2-4 on end-tidal CO2 then fluid bolus
If bedside ultrasound available then measure IVC diameter variation to evaluate for fluid bolus responsiveness
Pressors initiated for MAP goal of 65-Norepinephrine first, then Vasopressin and consider Angiotensin II if continues to be hypotensive
Consider methylene blue if available-specific inhibitor of induced nitric oxide synthase iNOS and its downstream enzyme soluble guanylate cyclase-noninferiority study shown to reduce time to vasopressor discontinuation, decreased ICU length of stay,
hospital stay but no change in mortality-published Critical Care 06/13/2022
If persistently hypotensive then consider checking random cortisol-hydrocortisone if random less than 3, if 3-15 then consider ACTH stimulation test
If persistently hyperthermic then correcting hyperthermia can decrease pressor requirements, increased chances of reversal of shock and decrease mortality-Tylenol will be given via nasogastric tube
DVT prophylaxis-on Lovenox
GI prophylaxis while on ventilator-on pantoprazole
Nutrition when okay by surgery
Early mobilization/bedside range of motion
Critical care statement: A total of 55 minutes of critical care time was provided for this patient today. This includes management of unstable vital signs, evaluation of the patient at bedside, reviewing the patient's pertinent medical records
including radiographs, ventilator management, pressor management, fluid resuscitation management, microbiology, laboratory evaluations, and discussion with primary team, consultants, pharmacy, nutrition, physical therapy, case management, charge
nurse, critical care nursing, and respiratory therapy.
Diagnostic data:
Chest x-ray 05/09/2023-tip of ET tube 1.5 cm above smith, mild right perihilar interstitial airways disease which may be pneumonia
Transvaginal ultrasound 05/27-suspicious for uterine adenomyosis, unremarkable appearance of ovaries bilaterally, small volume complex free fluid in the pelvis
CT abdomen and pelvis 05/08/2023-small volume free fluid in the dependent true pelvis may be sequelae of recently ruptured adnexal cyst, unremarkable pelvis
CT abdomen and pelvis 05/08/2023-lack of excretion bilaterally can be seen with septic shock, mild intrahepatic biliary dilation new, moderate abdominal pelvic ascites which is progressed
Data Reviewed
-
EKG: Report reviewed by me
Radiology: Report reviewed by me
CT Scan: Report reviewed by me
Labs: Labs reviewed by me
Old Records: Reviewed
Critical Care Time (in minutes): 55
[2023-05-09] MEDS: NSS (PRESERVATIVE FREE) 10 ML IV (07:47)
[2023-05-09] MEDS: PROTONIX IV 40 MG IV (07:47)
--- NOTE | 2023-05-09 08:10 | W.PN.UPDATE ---
Update Note
Progress Note Update
Went over this morning to speak with family but recently left the room. Patient remains intubated. I then called to speak with Leonardo and reviewed with him my intra-operative observations. At this time I cannot say with certainty that her
symptoms were related to a ruptured TOA as there was no obvious evidence of one on her two CT scans and also no definitive source seen in the surgery. That being said, until cultures return, I think it would be safest to treat for a possible TOA and
broaden antibiotic coverage to include Doxycycline 100mg BID along with Zosyn. This recommendation was passed along to the Hospitalist Team.
[2023-05-09] MEDS: LR 500 IV ×2 (08:30→10:30)
[2023-05-09 08:39] LABS: Hematocrit 32.8 % (37.0-47.0); Hemoglobin 10.9 g/dL (12.0-16.0)
--- NOTE | 2023-05-09 08:49 | W.PN.ANS.POP ---
Anesthesia Post Operative
- Anesthesia Post Op Note
Vital Signs Stable-See Nursing Note: Yes
Airway Patent: Yes (Remains intubated)
Adequate Pain Control: Yes
Change in Mental Status: No (sedated but responds to commands and questions makes eye contact )
Current Postoperative Nausea & Vomiting: No
Anesthesia Complications: No
General Anesthetic Recall: No
Unplanned Admission: No
Post Op Hydration Adequate: Yes
[2023-05-09 08:58] LABS: Lactic Acid 6.2 mmol/L (0.7-2.0)
--- NOTE | 2023-05-09 09:00 | PTCARENOTE ---
pt on vent alert and nods yes and no to questions , currently denies pain , blood pressure low , increase in neosynephrine to 150mcg , pt also given a 500ml bolus of LR , NSR-ST on monitor , TARIQ on R abdomen draining large amt yellow drainage, labs
noted , repeat hemoglobin 10.9 , urine output adequate , clear yellow , at bedside and updated on current condition and plan of care, pt was seen by Dr Stock , Andrés Dean and Yobani
--- NOTE | 2023-05-09 09:18 | W.PN.HOSP.TC ---
Today's Communication/Plan
-
Total Critical Care Time__55___ minutes. I was immediately available to the patient and staff. I personally examined, reviewed labs, diagnostic images/reports, interpretations, treatment plans, discussed patient care with other providers and
family or caregivers (if patient is unable to make decisions), entered orders as appropriate and documented the medical record.
Wean off pressors
Continue IV fluids
Broad-spectrum antibiotics
SBT once hemodynamically stable
Assessment / Plan
Assessment / Plan
Impression:
Severe sepsis
Severe septic shock with hypotension not responding to IV fluids requiring multiple vasopressors
Ruptured right tubo-ovarian abscess with peritonitis.
Ventilatory dependent respiratory failure, postoperative.
Severe metabolic acidosis with elevated lactic acid level.
Acute kidney injury
Hypovolemic hyponatremia.
Hypokalemia
Hypocalcemia
Acute neutropenia secondary to sepsis.
Acute anemia
Coagulopathy secondary to sepsis.
Conditions prior to admission:
Ovarian cyst status post cystectomy twice most recently 2013.
Anxiety
Conditions prior to admission:
Severe sepsis secondary to ruptured right pelvic abscess.
Severe septic shock requiring multiple vasopressors.
Status post exploratory laparotomy with washout on 05/08.
Operative Findings:�
1. Thin purulence throughout abdomen, majority within pelvis, RIGHT ovary and tube inflamed and edematous
2. No inflammation/adhesions of bowel, no perforation, no bilious ascites (all bowel evaluated stomach, duodenum, SB, appendix, and entire colon), leak test of stomach and colon
Right pelvic TARIQ drain in place.
Blood/intraperitoneal cultures pending.
Initiated on empiric antibiotic Zosyn. ID consultation. Consider broaden coverage covering possible PID pathogens.
Severe septic shock with hypotension requiring pressors.
Lactic acidosis.
Acute kidney injury secondary to above.
Hyponatremia/hypokalemia.
Continue alkalinized IV fluids.
Follow serial BMP and replete electrolytes.
Follow lactic acid level.
Church catheter in place.
Acute severe neutropenia
Acute anemia secondary to severe illness, dilutional component, intraoperative loss.
Monitor CBC
Coagulopathy secondary to severe sepsis
Follow PTT/PT/INR/fibrinogen.
VDRF, secondary to severe sepsis and hemodynamic instability.
Wean off sedation
Attempt of SBT with hemodynamic stability.
Anxiety
Currently off sertraline.
DVT prophylaxis Lovenox.
Full code
Anticipated Discharge: > 48 hours
Subjective/Interval History
-
Date of Service: May 09, 2023
Objective Data
-
Labs:
Laboratory Results
05/08/23 05/08/23 05/09/23
20:58 23:35 03:10
WBC 2.0 L* 4.1 L
Hgb 10.6 L 10.3 L
Hct 30.2 L 30.2 L
Plt Count 127 L
PT
INR
APTT
HCO3
Sodium 130 L
Potassium 3.7
Chloride 100
Carbon Dioxide 15 L
BUN 22 H
Creatinine 1.5 H
Glucose 86
Calcium 7.5 L
Total Bilirubin 1.1
AST 41 H
ALT 40 H
Alkaline Phosphatase 40
05/09/23 05/09/23 05/09/23
03:10 03:10 03:10
WBC 3.9 L
Hgb 10.9 L 11.0 L
Hct 32.2 L 32.2 L
Plt Count 198 D
PT
INR
APTT
HCO3
Sodium
Potassium
Chloride
Carbon Dioxide
BUN
Creatinine
Glucose
Calcium
Total Bilirubin
AST
ALT
Alkaline Phosphatase
05/09/23 05/09/23 05/09/23
03:10 03:10 03:10
WBC
Hgb
Hct
Plt Count 206
PT 23.4 H
INR 2.10
APTT 38.3 H
HCO3 13.9 L*
Sodium Cancelled 133 L
Potassium Cancelled 3.2 L
Chloride Cancelled
Carbon Dioxide
BUN
Creatinine
Glucose
Calcium
Total Bilirubin
AST
ALT
Alkaline Phosphatase
05/09/23 05/09/23 05/09/23
03:10 03:10 03:10
WBC
Hgb
Hct
Plt Count
PT
INR
APTT
HCO3
Sodium
Potassium
Chloride 104
Carbon Dioxide Cancelled 12 L*
BUN Cancelled 17
Creatinine Cancelled
Glucose
Calcium
Total Bilirubin
AST
ALT
Alkaline Phosphatase
05/09/23 05/09/23 05/09/23
03:10 03:10 03:10
WBC
Hgb
Hct
Plt Count
PT
INR
APTT
HCO3
Sodium
Potassium
Chloride
Carbon Dioxide
BUN
Creatinine 1.2 H
Glucose Cancelled 148 H
Calcium Cancelled 6.0 L* D
Total Bilirubin 0.8
AST 107 H
ALT 66 H
Alkaline Phosphatase 41
05/09/23 05/09/23 05/09/23
04:52 08:21 10:00
WBC
Hgb 10.9 L
Hct 32.8 L
Plt Count
PT
INR
APTT
HCO3 14.8 L*
Sodium Pending
Potassium Pending
Chloride Pending
Carbon Dioxide Pending
BUN Pending
Creatinine Pending
Glucose Pending
Calcium Pending
Total Bilirubin
AST
ALT
Alkaline Phosphatase
05/09/23 05/09/23
14:29 20:29
WBC
Hgb Pending Pending
Hct Pending Pending
Plt Count
PT
INR
APTT
HCO3
Sodium
Potassium
Chloride
Carbon Dioxide
BUN
Creatinine
Glucose
Calcium
Total Bilirubin
AST
ALT
Alkaline Phosphatase
Vital Signs:
Vital Signs
Temp Pulse Resp BP Pulse Ox
100 F 102 21 84/63 99
05/09/23 06:48 05/09/23 07:16 05/09/23 07:16 05/09/23 07:16 05/09/23 08:25
I&O
05/08/23 05/09/23 05/10/23
06:59 06:59 06:59
Intake Total 829.0 / 829.0
Output Total 670 / 670
Balance 159.0 / 159.0
Physical Exam
-
General: Well Developed and No Apparent Distress
HEENT: Normocephalic, Atraumatic, Moist Mucous Membranes and Other (ET tube in place with clear secretions)
Respiratory: Clear to Auscultation and Decreased Breath Sounds
Cardiac: Regular Rhythm and S1/S2; Negative Murmur, Rub or Gallop
GI: Soft, Nontender, Nondistended, Normal Bowel Sounds and Other (Right lower quadrant TARIQ drain); Negative Organomegaly
Rectal: Deferred by Provider
Musculoskeletal: No Clubbing, No Cyanosis and No Edema
Skin: Negative Rash
Neuro: Awake, Alert, Oriented and Nonfocal/Grossly Intact
Data Reviewed
-
CT Scan: Report Reviewed by me
Ultrasound: Report Reviewed by me
Labs: Labs Reviewed by me
--- NOTE | 2023-05-09 10:00 | CON.ID ---
Consultation
-
Date/Time Consultation Requested: May 09, 2023 0921
Date/Time Consultation Performed: May 09, 2023 1000
Requesting Provider: Dr. Irvin Dean
Performing Provider: Dr. Romana Hilton
Reason for Consultation: Ruptured tubo-ovarian abscess
Chief Complaint / Past History
Chief Complaint
Abdominal pain
History of Present Illness
History obtained from her at bedside since patient is currently intubated and unable to provide a full history. She is a 37-year-old female with history of ovarian cyst status post cystectomy twice last being 2013 who presented to the ER on
May 07 with complaints of lower abdominal pain for few days. Urine GC chlamydia negative. Pelvic/transvaginal ultrasound showed probable ruptured ovarian cyst. CAT scan abdomen/ pelvis with IV contrast showed small volume free fluid in the
dependent true pelvis. Patient was discharged to home. However she returned to the hospital May 08 due to worsening severe lower abdominal pain. Positive nausea. Had episode of emesis. No fevers or chills at home. No vaginal discharge. No
urinary symptoms. No flank pain. Lactic acid 6.8. Positive bandemia. She was hypotensive requiring pressors. Repeat CAT scan of the abdomen pelvis showed moderate ascites in the abdomen and pelvis which has progressed. Patient noted to have
peritoneal signs. She was taken to the OR urgently last night and underwent laparoscopic laparotomy. Purulent fluid noted in the abdomen especially on the right side; the right ovary and tube were very inflamed and edematous suspicious for
ruptured tubo-ovarian abscess. She is currently on Zosyn. She notes that her abdominal pain is improved. 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 No recent travel. Per onset of the
abdominal pain started after lifting heavy object.
Past History
Additional Past Medical History:
Anxiety/depression
Ovarian cysts s/p cystectomy x 2
Allergy History:
No Known Allergies Allergy (Verified 05/07/23 21:06)
Medications Reviewed: Yes
Current Antibiotics:
Zosyn
Social History
Tobacco: Non-Smoker
Alcohol: Occasional
Drug: None
Personal:
Living: With Family
Employment: Not Employed
Family History
Family History: Not Pertinent
Review of Systems
Review of Systems
General: Change in Appetite; Negative Fever or Chills
HEENT: Negative Sinus Problems or Headache
Cardiovascular: Negative Chest Pain
Respiratory: Negative Dyspnea or Cough
Genital / Urological: Negative Dysuria or Flank Pain
Endocrine: Negative Weakness
Skin / Hair / Nails: Negative Rash
Neurological: Dizziness; Negative Headache
All systems: All other systems were reviewed and were negative
Vital Signs
Temp Pulse Resp BP Pulse Ox
100 F 102 21 84/63 99
05/09/23 06:48 05/09/23 07:16 05/09/23 07:16 05/09/23 07:16 05/09/23 08:25
Physical Exam
Physical Exam
Constitutional: No Acute Distress and Comfortable
Eyes: No Conjunctival Hemorrhage and Sclera Anicteric
Cardiovascular: Regular Rate
Pulmonary: Clear
Gastrointestinal: Soft, Tender (mild diffuse), Non Distended and Decreased Bowel Sounds
Genito-Urinary: Negative CVA Tenderness
Extremities: Negative Edema
Neurological: AO x 3
Lab / Diagnostic Study Results
Total Counted 100 05/09/23 03:10
Abs Neuts (Manual) 3.0 10^3/uL (1.4-6.5) 05/09/23 03:10
Segmented Neutrophils 25 % (42-75) L 05/09/23 03:10
Band Neutrophils 52 % (0-3) H D 05/09/23 03:10
Lymphocytes (Manual) 1 % (20-51) L 05/09/23 03:10
Eosinophils (Manual) 2 % (0-6) 05/09/23 03:10
PT 23.4 Sec (11.4-14.6) H 05/09/23 03:10
INR 2.10 05/09/23 03:10
Lactic Acid 6.2 mmol/L (0.7-2.0) H* 05/09/23 08:25
Microbiology Results
Micro:
05/09/23 04:57 MRSA Screen - Pending
Nose
05/09/23 01:35 Anaerobic Culture - Pending
Abdomen
05/09/23 01:35 Wound Culture - Pending
Abdomen Gram Stain - Pending
05/08/23 23:35 Blood Culture - Pending
Blood/Venous
05/08/23 23:35 Blood Culture - Pending
Blood/Venous
05/07/23 Pelvic/transvaginal US:Findings suspicious for uterine adenomyosis. Unremarkable sonographic appearance of the ovaries bilaterally with bilateral ovarian blood flow identified. Small volume complex free fluid in the pelvis which may be the
sequela of recently ruptured hemorrhagic cyst.
05/08/23 CT a/p with IV contrast: Lack of renal excretion bilaterally. This can be seen with septic shock. Reported hypotension. Mild intrahepatic biliary dilatation. New. This would better be evaluated� by abdominal ultrasound. Moderate
abdominopelvic ascites. Progressed. Ruptured ovarian cyst not excluded. Nonvisualization of the appendix. Acute appendicitis cannot be excluded.
Assessment / Plan
# Septic shock.
# Ruptured right tubo-ovarian abscess with peritonitis
s/p lap laparotomy
-Appreciate surgery for obtaining intra-op cultures
- Continue Zosyn pending culture data.
- Add doxycycline 100mg tube bid.
-Repeat urine GC/Chlamydia PCR
- Check syphilis in am.
- Follow vitals, WBC.
Care Review
Plan reviewed with: Physician
Total Time Spent with Patient (in minutes): Dr. Dean.
[2023-05-09] MEDS: TYLENOL 650 MG PO (10:22)
[2023-05-09 10:52] LABS: Blood Urea Nitrogen 18 mg/dl (7-17); Calcium 6.2 mg/dl (8.4-10.2); Carbon Dioxide 14 mmol/L (22-30); Chloride 106 mmol/L (98-107); Estimated Creatinine Clearance 48 ml/min; Glucose 163 mg/dl (70-99); Potassium 4.1 mmol/L (3.5-5.1); Sodium 130 mmol/L (135-145); eGFR 49.69
[2023-05-09] MEDS: LEVOPHED 258 MG IV ×3 (11:04→19:23)
[2023-05-09 11:45] LABS: B.E. -12.2 mmol/L; O2 Saturation % 98.8 % (94-98); PCO2 26 mmHg (32-35); PO2 120 mmHg (83-108)
[2023-05-09 11:49] LABS: HCO3 12.8 mmol/L (21-28)
[2023-05-09] MEDS: VIBRAMYCIN 100 MG TUBE (12:23)
--- NOTE | 2023-05-09 13:32 | CM ---
CM following re: discharger planning.
Discussed in Rounds, reviewed opt's chart, pt's at bedside. Per Rounds meeting, pt remains intubated, possible extubation today.
Pt is a 37 year old female, admitted with primary dx of Severe septic shock. Status post exploratory laparotomy with washout on 05/08.
Pt lives with in a 2SH, no steps to enter, has supportive family. 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
PCP: Nisha Vann
Pharmacy: [facility] in [facility].
D/C plan: home with anticipated no needs.
CM will follow with discharge plan updates as hospitalization progresses
[2023-05-09 14:26] LABS: B.E. -10.5 mmol/L; HCO3 13.3 mmol/L (21-28); Hematocrit 30.2 % (37.0-47.0); Hemoglobin 10.4 g/dL (12.0-16.0); O2 Saturation % 96.8 % (94-98); PCO2 23 mmHg (32-35); PO2 153 mmHg (83-108); pH 7.37 (7.35-7.45)
--- NOTE | 2023-05-09 14:52 | PTCARENOTE ---
pt repeat ABG at 12:00 was 7.30/26/120/12/8 , Dr Stock notified and AC rate on vent increased to 24, pt then has additional ABG at 14:00 and ABG 7.37/23/153/13.3 , pt is now at max dose of Phenylephrine 200mcg for goal of map of 65, she is now
maxed on 3 vasopressors her temperature has up to 103.4 she was placed on a cooling blanket and now her temp is down to 102.7 , she continues to have adequate urine output , repeat hemoglobin at 14:00 10.4 , urine output 50-100 hour
[2023-05-09] MEDS: TYLENOL ORAL SOLUTION 650 MG PO ×3 (15:46→23:05)
[2023-05-09] MEDS: ZOSYN 100 IV ×2 (15:46→21:04)
[2023-05-09 16:24] LABS: INR 2.11; PT 23.5 Sec (11.4-14.6)
[2023-05-09 16:25] LABS: Fibrinogen 358 MG/DL (199-459)
[2023-05-09 16:35] LABS: Lactic Acid 7.2 mmol/L (0.7-2.0)
--- NOTE | 2023-05-09 16:42 | PTCARENOTE ---
lactate level up to 7.2 Dr Covington notified , pt continues to be alert and oriented, conversing with family via texting on phone , no complaints of pain , continues with max vasopressor support
[2023-05-09] MEDS: LR 1000 IV (17:01)
[2023-05-09] MEDS: CALCIUM GLUCONATE 100 IV (17:18)
[2023-05-09] MEDS: LOVENOX 40 MG SC (17:20)
--- NOTE | 2023-05-09 17:31 | W.PN.UPDATE ---
Update Note
Progress Note Update
Patient awake, alert. Nods when asked about pain being better and that her pain is better than this AM
Still intubated, on pressors
VS: p86 T100.2, Tmax 102.5
Abdomen-soft, mildly distended, tender, decreased bowel sounds
Extremities-no calf pain
A/P S/p Exploratory laparotomy for peritonitis and sepsis-Still not clear that source was MOVIE PROJECTIONIST tract given the appearance noted by Dr Huntley at time of surgery and lack of any abscess on imaging performed less than a day prior to surgery. At this
point, would recommend continued monitoring for possible other source. Await culture results.
--- NOTE | 2023-05-09 18:19 | PTCARENOTE ---
pt given addition IL of LR at 1730 , pt is responding to the fluid and now BP 110/65 , starting to wean down on the Phenylephrine , pt temp now down to 99.1 , family in room and updated by Dr Templeton , pt is resting comfortably and asleep
[2023-05-09] MEDS: VIBRAMYCIN 260 MG IV (19:16)
--- NOTE | 2023-05-09 19:30 | PTCARENOTE ---
received patient. patient awake and alert, communicating via typing notes in phone, follows commands. SR on monitor, pressors infusing to maintain MAP >65. + pedal pulses. febrile core temp, scheduled tylenol given, cooling blanket under patient -
on standby. #7 ETT, 22 at lip. vent settings: AC 24-480-5-40%. coarse breath sounds noted. minimal secretions when suctioned through ETT/oral. NGT connected to LIS, brown drainage, hypoactive bowel sounds noted. distended abdomen. collins in place,
draining clear yellow urine. midline abdominal incision with original surgical dressing intact, minimal drainage. preventative sacral foam in place. pt denies pain. L radial arterial line, RIJ CVC triple lumen, PIVS in place. collins care done, CHG
bath, turned and repositioned, fresh linens, oral care and suction provided. plan of care ongoing.
[2023-05-09 19:54] LABS: B.E. -9.5 mmol/L; PCO2 24 mmHg (32-35); PO2 121 mmHg (83-108); pH 7.38 (7.35-7.45)
[2023-05-09 19:55] LABS: Hematocrit 28.8 % (37.0-47.0); Hemoglobin 10.1 g/dL (12.0-16.0); Mean Corp Hgb Conc. 35.1 g/dL (33.0-37.0); Mean Corpuscular Hgb 28.5 pg (27.0-31.0); Mean Corpuscular Volume 81.4 fL (81.0-99.0); Mean Platelet Volume 11.1 fL (7.4-10.4); Platelet Count 164 10^3/uL (130-400); Red Blood Cell Count 3.54 10^6/uL (4.20-5.40); Red Cell Dist. Width 13.7 % (11.5-14.5); White Blood Cell Count 17.1 10^3/uL (4.8-10.8)
[2023-05-09 20:02] LABS: HCO3 14.2 mmol/L (21-28)
[2023-05-09 20:09] LABS: Calcium 6.4 mg/dl (8.4-10.2)
[2023-05-09 21:38] LABS: Lactic Acid 8.1 mmol/L (0.7-2.0)
[2023-05-09] MEDS: CALCIUM GLUCONATE 130 MG IV (21:56)
[2023-05-09 22:39] LABS: Blood Urea Nitrogen 18 mg/dl (7-17); Carbon Dioxide 14 mmol/L (22-30); Chloride 101 mmol/L (98-107); Estimated Creatinine Clearance 51 ml/min; Glucose 112 mg/dl (70-99); Potassium 3.6 mmol/L (3.5-5.1); Sodium 127 mmol/L (135-145); eGFR 54.31
[2023-05-10] VITALS (39 sets, daily range): BP systolic 80–121; BP diastolic 55–105; PULSE 2–84; BMI 26.5
[2023-05-10] MEDS: LEVOPHED 258 MG IV ×5 (00:01→21:26)
--- NOTE | 2023-05-10 00:49 | PTCARENOTE ---
patient reassessed, system assessments unchanged. patient drowsy and resting comfortably. sister accompanying her overnight in room. SR on monitor, temp 99.1F. calvin gtt titrated down, maintaining MAP >65. vent settings unchanged. minimal secretions
noted. NGT to LIS. adequate UOP. patient repositioned for comfort, oral care provided. victor manuel repleted. pt denies pain at this time. plan of care ongoing.
[2023-05-10] MEDS: PITRESSIN 100 IV ×3 (01:05→19:15)
[2023-05-10] MEDS: SODIUM BICARBONATE 1150 MEQ IV ×2 (01:14→13:00)
[2023-05-10] MEDS: TYLENOL ORAL SOLUTION 650 MG PO ×4 (03:42→19:15)
[2023-05-10] MEDS: ZOSYN 100 IV ×2 (03:42→09:36)
[2023-05-10 03:49] LABS: B.E. -2.4 mmol/L; HCO3 19.2 mmol/L (21-28); Ionized Calcium 0.98 mMOL/L (1.15-1.33); O2 Saturation % 98.7 % (94-98); PCO2 23 mmHg (32-35); PO2 109 mmHg (83-108); Potassium 3.7 mMOL/L (3.5-5.1); Sodium 127 mMOL/L (136-145); pH 7.53 (7.35-7.45)
[2023-05-10 03:54] LABS: INR 1.66; PT 19.5 Sec (11.4-14.6)
[2023-05-10 03:55] LABS: APTT 43.7 Sec (23.4-35.0)
[2023-05-10 03:57] LABS: O2 Therapy 40%
[2023-05-10 04:12] LABS: ALT (SGPT) 180 U/L (0-35); AST (SGOT) 315 U/L (14-36); Albumin 1.9 g/dl (3.5-5.0); Alkaline Phosphatase 62 U/L (38-126); Blood Urea Nitrogen 18 mg/dl (7-17); Carbon Dioxide 21 mmol/L (22-30); Chloride 95 mmol/L (98-107); Direct Bilirubin 0.5 mg/dl (0.0-0.4); Estimated Creatinine Clearance 60 ml/min; Glucose 102 mg/dl (70-99); Magnesium 1.9 mg/dl (1.6-2.3); Potassium 3.7 mmol/L (3.5-5.1); Sodium 128 mmol/L (135-145); Total Bilirubin 0.8 mg/dl (0.2-1.3); Total Protein 3.7 g/dl (6.3-8.2); eGFR > 60.00
[2023-05-10 04:13] LABS: Hematocrit 27.9 % (37.0-47.0); Hemoglobin 9.9 g/dL (12.0-16.0); Mean Corp Hgb Conc. 35.5 g/dL (33.0-37.0); Mean Corpuscular Hgb 28.9 pg (27.0-31.0); Mean Corpuscular Volume 81.6 fL (81.0-99.0); Mean Platelet Volume 11.8 fL (7.4-10.4); Nucleated Red Blood Cells % 0.1 %; Platelet Count 135 10^3/uL (130-400); Red Blood Cell Count 3.42 10^6/uL (4.20-5.40); Red Cell Dist. Width 13.6 % (11.5-14.5); White Blood Cell Count 16.7 10^3/uL (4.8-10.8)
--- NOTE | 2023-05-10 04:15 | PTCARENOTE ---
patient reassessed. system assessments unchanged. cooling blanket on, goal 100.4, current temp 101.6. calvin gtt off, MAP goal >65 maintained. levo/vaso/precedex/fent/bicarb gtts continue. ETT adjusted. oral care provided, patient repositioned. AM labs
sent. plan of care ongoing.
[2023-05-10 04:17] LABS: Lactic Acid 6.1 mmol/L (0.7-2.0)
[2023-05-10 04:44] LABS: Lipase 13 U/L (23-300)
[2023-05-10] MEDS: CALCIUM CHLORIDE 10% SYRINGE 60 MG IV (04:55)
[2023-05-10 05:00] LABS: Absolute Neutrophils -Man Diff 14.8 10^3/uL (1.4-6.5); Band Neutrophils 10 % (0-3); Lymphocytes 3 % (20-51); Segmented Neutrophils 79 % (42-75)
[2023-05-10 05:01] LABS: Monocytes 8 % (2-9)
[2023-05-10 05:02] LABS: Normal RBC Morphology No; Platelets Checked Yes
[2023-05-10 05:03] LABS: Ovalocytes 1+; Total Cells Counted 100; Toxic Granulation 1+; Vacuolated Segs 3+
[2023-05-10] MEDS: SUBLIMAZE 50 MCG IV (05:35)
--- NOTE | 2023-05-10 07:47 | W.PN.INTV ---
Today's Communication / Plan
Recommendations
Check cultures
Broad-spectrum antibiotics
Decrease intravenous fluids
Spontaneous breathing trial
Hope to extubate
Wean pressors
Assessment
-
37-year-old female with a history of ovarian cyst status post cystectomy's twice with most recent in 2013 presented with abdominal pain, chills, shortness of breath, nausea and CT chest showed free fluid in the dependent pelvis felt to be sequelae
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
shock/pressor/ventilator/critical care management 05/09/2023.
Assessment
Septic shock unresponsive to fluids requiring triple pressors
Ruptured right tubo-ovarian abscess with peritonitis suspected-clinical picture not entirely consistent, less likely toxic shock syndrome-no rash, etc.
Status post exploratory laparotomy with washout on 05/08/2023
Ventilator dependent respiratory failure-severe acidosis-postoperative
Intubated 05/08/2023
Extubated 05/10/2023
Metabolic acidosis
Lactic acidosis
FELICITY
Hyponatremia-130
Hypokalemia
Hypocalcemia
Neutropenia secondary to sepsis-WBC 2.0
Anemia-hemoglobin 10.6-normocytic
Mild thrombocytopenia-platelet count 127
Coagulopathy secondary to sepsis
Hyponatremia
Conditions present prior to admission:
Ovarian cyst status post laparoscopic drainage and removal twice before.
Anxiety.
Anemia
Plan
Remains critically ill on pressors on a ventilator and sedated
Ventilator settings reviewed
Hemodynamics have improved as well as acidosis-attempt spontaneous breathing trial
Hope to extubate
Check ABG
Aspiration precautions
VAP prevention protocol
Nebulizers if needed-currently not bronchospastic
Cultures reviewed-strep pyogenes from wound culture
Chlamydia and Neisseria-negative
MRSA screen-negative
Exploratory laparotomy wound cultures-Streptococcus pyogenes
Blood cultures-no growth
Empiric antibiotics
Infectious disease following
Monitor leukocytosis
Tylenol ijkavd-[id number]-hjixp for now as patient becomes quite hypotensive with temperature spikes
Surgery following-reviewed with them
PRACTICAL NURSE CLINICAL COORDINATOR following-reviewed with them
Decrease IV fluids
Decrease bicarb
Boluses as needed
Nephrology evaluation pending
DVT prophylaxis-on Lovenox
GI prophylaxis while on ventilator-on pantoprazole
Nutrition when okay by surgery
Early mobilization/bedside range of motion
Dr. Covington reviewed case with sister at the bedside twice and on 05/10/2023-updated current clinical situation, prognosis, treatment plan
Critical care statement: A total of 50 minutes of critical care time was provided for this patient today. This includes management of unstable vital signs, evaluation of the patient at bedside, reviewing the patient's pertinent medical records
including radiographs, ventilator management, pressor management, fluid resuscitation management, microbiology, laboratory evaluations, and discussion with primary team, consultants, pharmacy, nutrition, physical therapy, case management, charge
nurse, critical care nursing, and respiratory therapy.
Diagnostic data:
Chest x-ray 05/09/2023-tip of ET tube 1.5 cm above smith, mild right perihilar interstitial airways disease which may be pneumonia
Transvaginal ultrasound 05/27-suspicious for uterine adenomyosis, unremarkable appearance of ovaries bilaterally, small volume complex free fluid in the pelvis
CT abdomen and pelvis 05/08/2023-small volume free fluid in the dependent true pelvis may be sequelae of recently ruptured adnexal cyst, unremarkable pelvis
CT abdomen and pelvis 05/08/2023-lack of excretion bilaterally can be seen with septic shock, mild intrahepatic biliary dilation new, moderate abdominal pelvic ascites which is progressed
Subjective Dataa
Subjective Data
Date of Service:
Date of Service: May 10, 2023
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
Subjective:
Improved overnight, now down to 2 pressors, response to fluids, alert on the ventilator, no complaints of increased shortness of breath, no increased secretions, abdominal pain controlled
Review of Systems
General: Other (Per HPI)
Objective Data
Data Reviewed
Vital Signs / I&O / Oxygen:
Vital Signs
Temp Pulse Resp BP Pulse Ox
99.6 F 75 24 95/70 100
05/10/23 06:50 05/10/23 07:00 05/10/23 07:00 05/10/23 06:00 05/10/23 07:00
Intake and Output
05/09/23 05/10/23 05/11/23
06:59 06:59 06:59
Intake Total 829.0 / 1120.0 9643.1 / 9643.1
Output Total 670 / 670 3095 / 3095
Balance 159.0 / 450.0 6548.1 / 6548.1
SaO2 [A/C] 100
SaO2 100
Physical Exam
General: Respiratory Distress (n) and Comfortable
HEENT: Normocephalic, Anicteric and Moist Mucous Membranes
Cardiovascular: Regular Rhythm
Respiratory: Wheeze (n), Crackles (n), Rhonchi, Non-Labored Respirations, Accessory Resp Muscle Use (n) and Stridor (n)
GI: Soft and Distended
Neurology: Awake, Alert and No Motor Deficits
Skin: Warm, Good Color, Cyanosis (n), Jaundice (n) and Rash (n)
Labs/Micro/Reports
Lab Data
05/10/23 03:36
05/10/23 03:36
Laboratory Results
05/09/23 05/09/23 05/09/23
10:41 14:10 15:21
PT Cancelled
INR Cancelled
APTT
pH 7.30 L 7.37
pCO2 26 L 23 L
pO2 120 H 153 H
HCO3 12.8 L* 13.3 L*
O2 Delivery Level
05/09/23 05/09/23 05/10/23
16:04 19:39 03:36
PT 23.5 H 19.5 H
INR 2.11 1.66
APTT 38.0 H 43.7 H
pH 7.38 7.53 H
pCO2 24 L 23 L
pO2 121 H 109 H
HCO3 14.2 L* 19.2 L
O2 Delivery Level 40%
Microbiology
05/08/23 23:35 Blood/Venous Blood Culture - Preliminary
No Growth in 24 hours- Final report to follow
05/08/23 23:35 Blood/Venous Blood Culture - Preliminary
No Growth in 24 hours- Final report to follow
05/09/23 11:11 Urine Chlamydia trachomatis (PCR) - Final
05/09/23 11:11 Urine Neisseria gonorrhoeae (PCR) - Final
05/09/23 01:35 Abdomen Gram Stain - Preliminary
[2023-05-10] MEDS: NSS (PRESERVATIVE FREE) 10 ML IV (07:54)
[2023-05-10] MEDS: PROTONIX IV 40 MG IV (07:54)
[2023-05-10] MEDS: MIRALAX 17 GRAMS TUBE (07:54)
[2023-05-10] MEDS: VIBRAMYCIN 260 MG IV (07:55)
[2023-05-10] MEDS: NSS 250 IV (08:30)
[2023-05-10 09:34] LABS: B.E. -1.7 mmol/L; HCO3 22.9 mmol/L (21-28); O2 Saturation % 95.5 % (94-98); PCO2 37 mmHg (32-35); PO2 72 mmHg (83-108)
--- NOTE | 2023-05-10 09:55 | RESPNOTE ---
pt extubated to 6lpm of nasal cannula. o2 sats of 95% noted
--- NOTE | 2023-05-10 10:00 | PTCARENOTE ---
pt in am oriented , conversing with staff and family via text, on vent , HR NSR , BP 100/60 , continues on vasopressin and phenylephrine for map goal of 65, pt had SBT at 0800 and tolerated well, her ABG 7.40/37/27/22.9 , pt was extubated at 0950
as ordered, pt was placed on 6 L NC with sats of 90-95% , she was given IS and TV 250s , pt micro showing strep pyogenes, Dr Stock and Yobani notified , antibiotics adjusted , pt temps down to 99.0 , urine output adequate , TARIQ draining serous fluid
, abd soft , dressing intact , family at bedside and updated on current condition and plan of care
[2023-05-10] MEDS: CLEOCIN 50 IV ×2 (11:24→19:16)
--- NOTE | 2023-05-10 11:24 | W.PN.GS2 ---
Today's Communication / Plan
-
Cont IV abx
Cont NGT/NPO
Assessment / Plan
-
37F with septic shock most likely 2/2 ruptured TOA POD1 s/p ex-lap and washout
Tmax 101.1F, still on levo/vaso/calvin
Extubated, pain controlled
Excellent UOP
Lactic acid improving but remains elevated
WBC slightly improved but remains elevated
Micro: strep pyogenes
Plan:
Wean pressors as able
IV abx per ID
Follow cultures
NPO/NGT to LIWS - anticipate possible ileus
DVT ppx
Will follow
Subjective Data
-
Date of Service: May 10, 2023
Remains on 3 pressors, extubated and conversant, abd pain well controlled, denies n/v with NGT to suction
Objective Data
-
Intake and Output
05/09/23 05/10/23/11/24
06:59 06:59 06:59
Intake Total 829.0 / 1120.0 9643.1 / 9643.1
Output Total 670 / 670 3095 / 3095
Balance 159.0 / 450.0 6548.1 / 6548.1
Intake:
IV fluids (Total) 569.0 / 860.0 8833.1 / 8833.1
500ml LR 1000 / 1000
LR 1000 / 1000
Sterile Water For Injection 250 / 375 3760 / 3760
1000 ml 1,000 ml @ 125 mls/hr
IV .Q9H12M DENNIS with Sodium
Bicarbonate 150 Meq Rx#:
[id number]
fentanyl 10 / 15 120 / 120
levo 226 / 339 1570.5 / 1570.5
calvin 45.0 / 70.5 852.0 / 852.0
precedex 14 24.5 242.6 / 242.6
vaso 24 288 / 288
IV piggybacks 260 / 260 690 / 690
Amount instilled into GI Tube ( 120 / 120
Total)
[place] Sump 120 / 120
Output:
Drain Output (Total) 170 / 170 920 / 920
Right Abdomen 170 / 170 920 / 920
Gastrointestinal tube output ( 450 / 450
Total)
[place] Sump 450 / 450
Urine, Church 500 / 500 1725 / 1725
Vital Signs
Temp Pulse Resp BP Pulse Ox
99.2 F 87 17 95/70 99
05/10/23 11:00 05/10/23 08:23 05/10/23 08:23 05/10/23 06:00 05/10/23 08:26
Lab Results
05/10/23 03:36
05/10/23 03:36
Calcium 7.0 mg/dl (8.4-10.2) L 05/10/23 03:36
Magnesium 1.9 mg/dl (1.6-2.3) 05/10/23 03:36
Total Bilirubin 0.8 mg/dl (0.2-1.3) 05/10/23 03:36
Direct Bilirubin 0.5 mg/dl (0.0-0.4) H 05/10/23 03:36
AST 315 U/L (14-36) H 05/10/23 03:36
ALT 180 U/L (0-35) H 05/10/23 03:36
Alkaline Phosphatase 62 U/L (38-126) 05/10/23 03:36
Total Protein 3.7 g/dl (6.3-8.2) L 05/10/23 03:36
Albumin 1.9 g/dl (3.5-5.0) L 05/10/23 03:36
Physical Exam
-
Gen: NAD
Abd: soft, approp ttp, aquacel with some inferior strikethrough, drain with thin cloudy output
--- NOTE | 2023-05-10 12:35 | CM ---
CM following re: discharge planning.
Discussed in Rounds, reviewed pt's chart, met with pt and pt's at bedside. Pt's participated in Rounds meeting. Pt extubated this morning to 6 L NC with O2 saturation of 95%, continue supportive care. General surgery following.
Pt's stated they have 3 young children, 7, 5 and 2 year of age.
D/C plan: home with anticipated no needs.
CM will follow with discharge plan updates as hospitalization progresses
--- NOTE | 2023-05-10 12:51 | W.PN.ID1 ---
Date of Service
Date of Service: May 10, 2023
Today's Communication
See below plan.
Assessment / Plan
# Group A strep toxic shock syndrome.
- Remains on 3 pressors.
-Still febrile
-Leukocytosis persists
-Lactic acid remains elevated.
-Follow vitals, WBC, Lactic acid.
# Ruptured right tubo-ovarian abscess with peritonitis
-s/p lap laparotomy
- OR cx: Group A strep
- Menstruation preceded TOA. Pt uses vaginal disc receptacle during menstruation past 5 years; she cannot recall leaving it in too long.
- Add clindamycin 900mg iv q8H as toxin inhibitor, short course
- Ordered IVIG x 3 days.
-Narrow Zosyn to ceftriaxone 2gIV q24.
- Discontinue doxycycline
- Follow clinically.
35min critical care time spent on case.
Chief Complaint
-: Clinical Sepsis and Other (Peritonitis)
Subjective / Review of Systems
Extubated. No significant abdominal pain.
Vital Signs / Physical Exam
Vital Signs
Vital Signs
Temp Pulse Resp BP Pulse Ox
99.2 F 87 17 95/70 99
05/10/23 11:00 05/10/23 08:23 05/10/23 08:23 05/10/23 06:00 05/10/23 08:26
Selected Entries
05/10/23
04:00 05/10/23
07:45
Temp 101.9 F H 101.1 F H
Physical Exam
Constitutional: Acutely Ill
Cardiovascular: Regular Rate and S1/S2
Pulmonary: Clear (anteriorly)
Gastrointestinal: Soft, Tender (mild tender), Non Distended and Decreased Bowel Sounds
Extremities: Negative Edema
Neurological: AO x 3
Objective Data
Lab Data
Lab Results
05/10/23 03:36
05/10/23 03:36
PT 19.5 Sec (11.4-14.6) H 05/10/23 03:36
INR 1.66 05/10/23 03:36
APTT 43.7 Sec (23.4-35.0) H 05/10/23 03:36
Estimated Creat Clear 60 ml/min 05/10/23 03:36
Lactic Acid 6.1 mmol/L (0.7-2.0) H* 05/10/23 03:37
Total Bilirubin 0.8 mg/dl (0.2-1.3) 05/10/23 03:36
AST 315 U/L (14-36) H 05/10/23 03:36
ALT 180 U/L (0-35) H 05/10/23 03:36
Alkaline Phosphatase 62 U/L (38-126) 05/10/23 03:36
Most recent labs reviewed.
Micro Results:
05/09/23 01:35 Anaerobic Culture - Preliminary
Abdomen Culture pending. Anaerobic cultures are examined after 3
days incubation. Additional information to follow.
05/09/23 01:35 Wound Culture - Preliminary
Abdomen Streptococcus pyogenes
Gram Stain - Preliminary
05/09/23 04:57 MRSA Screen - Final
Nose No Methicillin Resistant Staphylococcus aureus isolated.
05/08/23 23:35 Blood Culture - Preliminary
Blood/Venous No Growth in 24 hours- Final report to follow
05/08/23 23:35 Blood Culture - Preliminary
Blood/Venous No Growth in 24 hours- Final report to follow
05/09/23 11:11 Chlamydia trachomatis (PCR) - Final
Urine Neisseria gonorrhoeae (PCR) - Final
05/07/23 Pelvic/transvaginal US:Findings suspicious for uterine adenomyosis. Unremarkable sonographic appearance of the ovaries bilaterally with bilateral ovarian blood flow identified. Small volume complex free fluid in the pelvis which may be the
sequela of recently ruptured hemorrhagic cyst.
05/08/23 CT a/p with IV contrast: Lack of renal excretion bilaterally. This can be seen with septic shock. Reported hypotension. Mild intrahepatic biliary dilatation. New. This would better be evaluated� by abdominal ultrasound. Moderate
abdominopelvic ascites. Progressed. Ruptured ovarian cyst not excluded. Nonvisualization of the appendix. Acute appendicitis cannot be excluded.
Care Review
Plan reviewed with: Nurse (ICU nurse Dandre) and Other (Pharmacist Yola)
Total Time Spent with Patient (in minutes): 35
[2023-05-10 13:17] LABS: Lactic Acid 4.5 mmol/L (0.7-2.0)
--- NOTE | 2023-05-10 13:28 | W.CON.NEPH ---
Consultation
-
Date/Time Consultation Requested: 05/10/2023, 9 AM
Date/Time Consultation Performed: 05/10/2023, 1330
Requesting Provider: Dr. Dean
Performing Provider: Dr. Núñez
Reason for Consultation: Acute kidney injury, hypotension
Medical History
-
Chief Complaint: FELICITY, hypotension, hypocalcemia, hyponatremia, metabolic acidosis
History of Present Illness:
This is a 37-year-old female with very limited past medical history other than that of ovarian cysts with history of cystectomy who came to the emergency room on 08 May with abdominal pain and back discomfort. She had tried ibuprofen at home.
The pain continued to worsen and she came to the ER. She had no fevers chest pain vomiting or diarrhea at that time. CT scan with contrast had disclosed significant ascites. She underwent exploratory laparotomy on 05/09/2023 which suggested a
ruptured tubo-ovarian abscess. Blood cultures are growing Streptococcus pyogenes. Postoperatively she remains on pressors to maintain her blood pressures. Lactic acid remains elevated. She has mild hyponatremia as well as hypocalcemia. She is
currently critically ill in the ICU. Urine output however is nonoliguric.
Past Medical History
Ovarian cyst with cystectomy, anxiety, anemia
Social History
Tobacco: Non-Smoker
Alcohol: Occasional
Family History
Family History: Not Pertinent
Allergies / Home Medications
Allergy/AdvReac Type Severity Reaction Status Date / Time
No Known Allergies Allergy Verified 05/07/23 21:06
Medication Instructions Recorded Confirmed Type
sertraline 25 mg tablet 100 mg PO DAILY Mental 04/26/18 11/18/19 History
Health/Anxiety
Dha 1 tab PO DAILY Supplement 11/18/19 11/18/19 History
Vitamin Tablet 1 tab PO DAILY Supplement 11/18/19 11/18/19 History
acetaminophen 325 mg tablet 650 mg PO Q4HPRN PRN mild pain 11/19/19 Rx
ibuprofen 600 mg tablet 400 mg PO Q4HPRN PRN moderate 11/19/19 Rx
pain/cramps
sennosides 8.6 mg-docusate sodium 1 tab PO DAILYPRN PRN constipation 11/19/19 Rx
50 mg tablet
Physical Exam
Vital Signs
Vital Signs
Temp Pulse Resp BP Pulse Ox
99.2 F 87 17 95/70 99
05/10/23 11:00 05/10/23 08:23 05/10/23 08:23 05/10/23 06:00 05/10/23 08:26
Lab Results
WBC 16.7 10^3/uL (4.8-10.8) H 05/10/23 03:36
RBC 3.42 10^6/uL (4.20-5.40) L 05/10/23 03:36
Hgb 9.9 g/dL (12.0-16.0) L 05/10/23 03:36
Hct 27.9 % (37.0-47.0) L 05/10/23 03:36
Plt Count 135 10^3/uL (130-400) 05/10/23 03:36
eGFR > 60.00 05/10/23 03:36
Kod-J-Xrlvnmfwdye Pept 7920 pg/ml 05/09/23 03:10
Physical Exam
General: AOx3
HEENT: PERRL, EOMI, Anicteric, Ear/Nose Intact, Hearing Normal, Oropharynx Clear/Moist, Neck Supple, Trachea Midline and No Thyromegaly
Respiratory: Clear and Normal Excursion
Cardiac: Regular Rate/Rhythm
Abdomen: Soft, Nontender and Normal Bowel Sounds
Skin: No Rash and Normal Turgor
Psych: Mood/afflect pleasant and Insight/judgement good
Assessment/Plan
-
Assessment
-hypotension
-FELICITY resolved
-hyponatremia
-hypocalcemia
-metabolic acidosis
-lactic acidosis
-Strep pyogenes ascites cx
-suspected tuboovarian abscess rupture
-rising LFTs
Plan
-wean pressors as allowed, keep MAP > 65
-check urine studies
-continue IVF with bicarb today
-follow lactate
-follow BMP
-follow LFTs
-replete calcium
-critical care time 32 minutes
Data Reviewed
-
Radiology: Image Personally Visualized and interpreted (Chest x-ray on 05/10/2023 by my reading shows vascular prominence)
CT Scan: Report Reviewed by me
Labs: Labs Reviewed by me (Laboratory values on 05/10/2023 shows sodium 128, potassium 3.7, bicarbonate 21, BUN 18, creatinine 1.1, calcium 7, lactic acid 6.1, ABG 7.40/37/23, hemoglobin 9.9, WBC 16.7)
[2023-05-10] MEDS: DILAUDID 0.25 MG IV (13:57)
[2023-05-10] MEDS: GAMMAGARD 300 IV (14:16)
--- NOTE | 2023-05-10 14:18 | W.PN.GYN ---
Today's Communication / Plan
-
-Continue current ICU care
-Continue abx regimen, per ID
-Continue post-op care, per gen surg
-If pt does not continue to clinically improve, would consider reimaging with abd CT and consideration for repeat surgery to address most likely source (?consideration for at least RSO if that tube and ovary still appear inflamed).
-No other new television news reporter recommendations for now. Will follow along.
Physician Note
-
Pt seen and examined by me at approximately 2pm today.
She was extubated this morning. She feels overall terrible, but better than earlier. She did have her menses the week prior to this event and uses a menstrual cup, but denies having kept it in too long and is certain it was removed. No new
complaints. Pain is well-controlled. Had a BM today.
VS reviewed- see below. Temp this morning 101.1F, but now 99.2F, HR 80s
Gen: NAD, WD/WN, AAO x3
Abd: soft, NTTP, moderately distended
Dressing c/d/i
Drain put out 60ml serosanguinous fluid in the past 2hrs
Labs reviewed- see below
wound culture +strep pyogenes
GC/CT PCR neg/neg
Blood cultures no growth
A/P 37yo F with septic shock (?TSS), POD1 s/p ex-lap with peritoneal washout for peritonitis, presumably from severe PID/?ruptured TOA.
Making slow clinical improvement, currently afebrile with lactate downtrending and leukocytosis slightly improved.
-Continue current ICU care
-Continue abx regimen, per ID
-Continue post-op care, per gen surg
-If pt does not continue to clinically improve, would consider reimaging with abd CT and consideration for repeat surgery to address most likely source (?consideration for at least RSO if that tube and ovary still appear inflamed).
-No other new television news reporter recommendations for now. Will follow along.
Vital Signs / Labs
-
Vital Signs and Labs:
Temp Pulse Resp BP Pulse Ox
99.2 F 87 17 95/70 99
05/10/23 11:00 05/10/23 08:23 05/10/23 08:23 05/10/23 06:00 05/10/23 08:26
05/10/23 03:36
05/09/23 05/09/23 05/09/23
14:10 16:03 16:04
WBC
RBC
Hgb 10.4 L
Hct 30.2 L
MPV
Abs Neuts (Manual)
Segmented Neutrophils
Band Neutrophils
Lymphocytes (Manual)
PT 23.5 H
APTT 38.0 H
pH
pCO2 23 L
pO2 153 H
HCO3 13.3 L*
ABG O2 Sat (Measured)
Sodium
Chloride
Carbon Dioxide
BUN
Creatinine
Glucose
Lactic Acid 7.2 H*
Calcium
Ionized Calcium
Direct Bilirubin
AST
ALT
Total Protein
Albumin
Lipase
05/09/23 05/09/23 05/10/23
19:39 21:16 03:36
WBC 17.1 H 16.7 H
RBC 3.54 L 3.42 L
Hgb 10.1 L 9.9 L
Hct 28.8 L 27.9 L
MPV 11.1 H 11.8 H
Abs Neuts (Manual) 14.8 H
Segmented Neutrophils 79 H
Band Neutrophils 10 H D
Lymphocytes (Manual) 3 L
PT 19.5 H
APTT 43.7 H
pH 7.53 H
pCO2 24 L 23 L
pO2 121 H 109 H
HCO3 14.2 L* 19.2 L
ABG O2 Sat (Measured) 99.0 H 98.7 H
Sodium 127 L 127 L
Chloride
Carbon Dioxide 14 L*
BUN 18 H
Creatinine 1.3 H
Glucose 112 H
Lactic Acid 8.1 H*
Calcium 6.4 L*
Ionized Calcium
Direct Bilirubin
AST
ALT
Total Protein
Albumin
Lipase
05/10/23 05/10/23 05/10/23
03:36 03:37 09:26
WBC
RBC
Hgb
Hct
MPV
Abs Neuts (Manual)
Segmented Neutrophils
Band Neutrophils
Lymphocytes (Manual)
PT
APTT
pH
pCO2 37 H
pO2 72 L
HCO3
ABG O2 Sat (Measured)
Sodium 128 L
Chloride 95 L
Carbon Dioxide 21 L
BUN 18 H
Creatinine 1.1 H
Glucose 102 H
Lactic Acid 6.1 H*
Calcium 7.0 L
Ionized Calcium 0.98 L
Direct Bilirubin 0.5 H
AST 315 H
ALT 180 H
Total Protein 3.7 L
Albumin 1.9 L
Lipase 13 L
05/10/23
11:57
WBC
RBC
Hgb
Hct
MPV
Abs Neuts (Manual)
Segmented Neutrophils
Band Neutrophils
Lymphocytes (Manual)
PT
APTT
pH
pCO2
pO2
HCO3
ABG O2 Sat (Measured)
Sodium
Chloride
Carbon Dioxide
BUN
Creatinine
Glucose
Lactic Acid 4.5 H*
Calcium
Ionized Calcium
Direct Bilirubin
AST
ALT
Total Protein
Albumin
Lipase
[2023-05-10] MEDS: ZOFRAN 4 MG IV (14:22)
[2023-05-10] MEDS: CALCIUM GLUCONATE 100 IV (14:28)
[2023-05-10] MEDS: STERILE WATER FOR INJECTION 20 ML IV (15:09)
[2023-05-10] MEDS: ROCEPHIN 2000 MG IV (15:09)
[2023-05-10 15:24] LABS: Urine Sodium 77 mmol/L (30-90)
--- NOTE | 2023-05-10 16:26 | W.PN.HOSP.TC ---
Today's Communication/Plan
-
Continue ICU care.
IV antibiotics
IVIG
IV fluids with bicarbonate.
Wean off pressors as tolerated
Extubated.
Monitor volume status closely.
Assessment / Plan
Assessment / Plan
Impression:
Severe sepsis
Severe septic shock with hypotension not responding to IV fluids requiring multiple vasopressors
Ruptured right tubo-ovarian abscess with peritonitis.
Wound culture isolated group A strep.
Streptococcal toxic shock syndrome
Ventilatory dependent respiratory failure, postoperative.
Severe metabolic acidosis with elevated lactic acid level.
Acute kidney injury
Hypovolemic hyponatremia.
Hypokalemia
Hypocalcemia
Acute neutropenia secondary to sepsis.
Acute anemia
Coagulopathy secondary to sepsis.
Abnormal LFTs secondary to shock liver
Conditions prior to admission:
Ovarian cyst status post cystectomy twice most recently 2013.
Anxiety
Plan
Severe sepsis secondary to ruptured right pelvic abscess.
Severe septic shock requiring multiple vasopressors.
Status post exploratory laparotomy with washout on 05/08.
Operative Findings:�
1. Thin purulence throughout abdomen, majority within pelvis, RIGHT ovary and tube inflamed and edematous
2. No inflammation/adhesions of bowel, no perforation, no bilious ascites (all bowel evaluated stomach, duodenum, SB, appendix, and entire colon), leak test of stomach and colon
Right pelvic TARIQ drain in place.
Blood/intraperitoneal cultures pending.
Initiated on empiric antibiotic Zosyn. ID consultation. Consider broaden coverage covering possible PID pathogens.
Wound culture isolate with group A strep.
Given the above and rapidly developed multiple organ failure group A strep toxic shock most likely.
Antibiotic tailored to ceftriaxone with addition of clindamycin (antitoxin effect)
IVIG therapy initiated on 05/10
Severe septic shock with hypotension requiring pressors.
Lactic acidosis.
Acute kidney injury secondary to above.
Hyponatremia/hypokalemia/hypocalcemia
Continue alkalinized IV fluids.
Follow serial BMP and replete electrolytes.
Follow lactic acid level.
Church catheter in place.
Acute severe neutropenia transition into leukocytosis
Acute anemia secondary to severe illness, dilutional component, intraoperative loss.
Monitor CBC
Coagulopathy secondary to severe sepsis
Follow PTT/PT/INR/fibrinogen.
VDRF, secondary to severe sepsis and hemodynamic instability.
Weaned off sedation
Extubated on 05/10
Anxiety
Currently off sertraline.
DVT prophylaxis Lovenox.
Full code
Anticipated Discharge: > 48 hours
Subjective/Interval History
-
Date of Service: May 10, 2023
Objective Data
-
Labs:
Laboratory Results
05/10/23 05/10/23
09:26 18:00
HCO3 22.9
Sodium Pending
Potassium Pending
Chloride Pending
Carbon Dioxide Pending
BUN Pending
Creatinine Pending
Glucose Pending
Calcium Pending
Total Bilirubin Pending
AST Pending
ALT Pending
Alkaline Phosphatase Pending
Vital Signs:
Vital Signs
Temp Pulse Resp BP Pulse Ox
98.8 F 87 17 95/70 99
05/10/23 15:09 05/10/23 08:23 05/10/23 08:23 05/10/23 06:00 05/10/23 08:26
I&O
05/09/23 05/10/23 05/11/23
06:59 06:59 06:59
Intake Total 829.0 / 1120.0 9643.1 / 9643.1
Output Total 670 / 670 3095 / 3095
Balance 159.0 / 450.0 6548.1 / 6548.1
Physical Exam
-
General: Well Developed and No Apparent Distress
HEENT: Normocephalic, Atraumatic and Moist Mucous Membranes
Respiratory: Clear to Auscultation
Cardiac: Regular Rhythm and S1/S2; Negative Murmur, Rub or Gallop
GI: Soft, Nontender, Nondistended and Normal Bowel Sounds; Negative Organomegaly
Rectal: Deferred by Provider
Musculoskeletal: No Clubbing, No Cyanosis and No Edema
Skin: Negative Rash
Neuro: Nonfocal/Grossly Intact
[2023-05-10] MEDS: TYLENOL ORAL SOLUTION PO (16:42)
--- NOTE | 2023-05-10 16:42 | W.PN.UPDATE ---
Update Note
Progress Note Update
Reevaluated the patient at the bedside-more hypoxemic, some basilar crackles
BiPAP initiated-15/8 cm-lowered to 12/8 cm-tolerating better
Has nausea unresponsive to Zofran
Nasogastric tube drained-minimal secretions
Trace pedal edema
Recommend
Check chest x-ray
Adjust BiPAP-reviewed with ENGAGEMENT MGR
Compazine
Low-dose Ativan to help with anxiety
Wean pressors-will check with renal whether gentle diuresis is in order as suspect fluid overloaded
Reviewed with
Total critical care time spent today-80 minutes
[2023-05-10] MEDS: COMPAZINE 5 MG IV (16:52)
[2023-05-10] MEDS: ATIVAN 0.5 MG IV (16:54)
[2023-05-10] MEDS: GAMMAGARD 200 IV (17:32)
[2023-05-10] MEDS: LOVENOX 40 MG SC (17:35)
--- NOTE | 2023-05-10 18:00 | PTCARENOTE ---
pt at 1400 complaining about nausea and becoming restless, pt given Zofran as ordered, she than became more restless and agitated inconstance of green mucous stool , continued with nausea and retching , pt NGT draining without difficulty , her sats
dropped to 80s , she co difficulty breathing she was placed on 15L mid flow with no improvement , Dr Arce notified and in room with patient , she was given 5mg IV Compazine , 0.5 mg IV Ativan and was placed on a cpap 15L , Compazine was
effective for nausea , her sats came up to 98% , she now resting comfortable and sleeping , in room and aware of events , pt ordered a chest x-ray , will continue to monitor , HR NSR , she weaned down on levophed to 6mcg
[2023-05-10 18:42] LABS: Lactic Acid 3.5 mmol/L (0.7-2.0)
[2023-05-10 18:47] LABS: ALT (SGPT) 175 U/L (0-35); AST (SGOT) 189 U/L (14-36); Albumin 2.1 g/dl (3.5-5.0); Alkaline Phosphatase 90 U/L (38-126); Blood Urea Nitrogen 17 mg/dl (7-17); Calcium 7.1 mg/dl (8.4-10.2); Carbon Dioxide 28 mmol/L (22-30); Chloride 93 mmol/L (98-107); Direct Bilirubin 0.6 mg/dl (0.0-0.4); Estimated Creatinine Clearance 95 ml/min; Glucose 112 mg/dl (70-99); Potassium 3.5 mmol/L (3.5-5.1); Sodium 124 mmol/L (135-145); Total Bilirubin 0.6 mg/dl (0.2-1.3); Total Protein 4.9 g/dl (6.3-8.2); eGFR > 60.00
[2023-05-10] MEDS: LASIX 40 MG IV (19:15)
--- NOTE | 2023-05-10 20:00 | PTCARENOTE ---
received patient. pt drowsy but arousable by voice. SR on monitor. levo and vaso gtts infusing through RIJ CVC to maintain MAP >65. pt with crackles upon auscultation, bipap settings: 12/8 15L. O2 sat 89-93%. CXR done, 40mg lasix given, 1700ml UOP
noted after dose. no respiratory distress noted. NGT to LIS with green/brown drainage. TARIQ drain in RLQ. midline incision dressing C/D/I. pt with BM at shift change, turned and cleaned. collins in place, draining pale yellow urine. at bedside,
updates given. labs sent. plan of care ongoing.
[2023-05-10 21:03] LABS: Lactic Acid 3.2 mmol/L (0.7-2.0)
[2023-05-10 21:18] LABS: Blood Urea Nitrogen 17 mg/dl (7-17); Calcium 7.3 mg/dl (8.4-10.2); Carbon Dioxide 30 mmol/L (22-30); Chloride 91 mmol/L (98-107); Estimated Creatinine Clearance 95 ml/min; Glucose 119 mg/dl (70-99); Potassium 3.3 mmol/L (3.5-5.1); Sodium 124 mmol/L (135-145); eGFR > 60.00
[2023-05-10] MEDS: CALCIUM GLUCONATE 130 MG IV (22:33)
[2023-05-10] MEDS: KCL 100 IV (22:33)
[2023-05-11] VITALS (32 sets, daily range): BP systolic 82–105; BP diastolic 56–74; BMI 29.5
[2023-05-11] MEDS: ATIVAN 0.5 MG IV ×2 (00:08→05:14)
[2023-05-11] MEDS: TYLENOL ORAL SOLUTION 650 MG PO ×7 (00:08→23:59)
--- NOTE | 2023-05-11 00:26 | PTCARENOTE ---
patient reassessed. systems unchanged, remains on bipap, settings unchanged. pt admits to feeling anxious, O2 in high 80s, dose of PRN IV ativan given - see MAR. rush repleted. pt with moderate bowel movement, cleaned up and fresh linens placed. pt
repositioned, oral care provided, collins care done. plan of care ongoing.
--- NOTE | 2023-05-11 02:04 | PTCARENOTE ---
pt tachypneic and satting 85-87% around 0130. ICU MANAGER BABY notified, NIV ordered and placed on pt by respiratory therapist. NIV settings: 15/10, RR 12, 100%. pt O2 sat now 93%. plan of care ongoing.
[2023-05-11] MEDS: PITRESSIN 100 IV ×3 (02:49→19:55)
[2023-05-11] MEDS: CLEOCIN 50 IV ×3 (03:09→19:56)
[2023-05-11 03:34] LABS: Hematocrit 26.2 % (37.0-47.0); Hemoglobin 8.8 g/dL (12.0-16.0); Mean Corp Hgb Conc. 33.6 g/dL (33.0-37.0); Mean Corpuscular Hgb 28.6 pg (27.0-31.0); Mean Corpuscular Volume 85.1 fL (81.0-99.0); Nucleated Red Blood Cells % 0 %; Red Blood Cell Count 3.08 10^6/uL (4.20-5.40); Red Cell Dist. Width 13.6 % (11.5-14.5)
[2023-05-11 03:41] LABS: Lactic Acid 1.7 mmol/L (0.7-2.0)
[2023-05-11 03:43] LABS: White Blood Cell Count 13.1 10^3/uL (4.8-10.8)
[2023-05-11 03:59] LABS: ALT (SGPT) 183 U/L (0-35); AST (SGOT) 147 U/L (14-36); Alkaline Phosphatase 90 U/L (38-126); Blood Urea Nitrogen 16 mg/dl (7-17); Calcium 7.7 mg/dl (8.4-10.2); Carbon Dioxide 34 mmol/L (22-30); Chloride 90 mmol/L (98-107); Direct Bilirubin 0.6 mg/dl (0.0-0.4); Estimated Creatinine Clearance 95 ml/min; Glucose 103 mg/dl (70-99); Potassium 3.9 mmol/L (3.5-5.1); Sodium 124 mmol/L (135-145); Total Bilirubin 0.6 mg/dl (0.2-1.3); Total Protein 4.9 g/dl (6.3-8.2); eGFR > 60.00
--- NOTE | 2023-05-11 04:04 | PTCARENOTE ---
patient reassessed. drowsy but arousable. continues on NIV mask - settings unchanged. RR 30s. O2 sat 88-91%. levo and vaso gtts to maintain MAP >65. AM labs sent. patient repositioned, HOB elevated, oral swab provided. plan of care ongoing.
[2023-05-11 05:09] LABS: B.E. 8.6 mmol/L; HCO3 35.3 mmol/L (21-28); O2 Saturation % 90.7 % (94-98); PCO2 61 mmHg (32-35); PO2 62 mmHg (83-108); pH 7.37 (7.35-7.45)
--- NOTE | 2023-05-11 05:16 | PTCARENOTE ---
Addendum entered by Mary Palomino RN 05/11/23 05:33:
no relief from ativan dose, pt RR 30s-40s, O2 sat low 80s. ICU ENDOSCOPE TECHNICIAN aware, radiology notified for stat CXR.
Original Note:
0500- patient tachypneic in high 40s, O2 sat mid to low 80s. ICU ENDOSCOPE TECHNICIAN notified, ABG drawn. pH 7.37, O2 62, CO2 61. ativan PRN dose given - see JUN.
--- NOTE | 2023-05-11 06:03 | W.PN.ANS.POP ---
Addendum entered and electronically signed by Maximus Pena CRNA 05/11/23 06:05:
pt was not post opted, needed to be intubated
Original Note:
Anesthesia Post Operative
- Anesthesia Post Op Note
Vital Signs Stable-See Nursing Note: Yes
Airway Patent: Yes
Adequate Pain Control: Yes
Change in Mental Status: No
Current Postoperative Nausea & Vomiting: No
Anesthesia Complications: No
General Anesthetic Recall: No
Unplanned Admission: No
Post Op Hydration Adequate: Yes
--- NOTE | 2023-05-11 06:05 | W.PN.ANESINT ---
Anesthesia Intubation Note
- Intubation Note
Intubation Note:
Diagnosis:
Blade: Glidescope
Tube Size: 8.0
Depth: 23 cm @lip
Side Taped: right
Drugs Used: prop-100mg, Succs- 100mg
Grade View: 2
EtCO2 Present: yes
Atraumatic: no
Attempts: X1
Insertion Start and Stop Time: 05:50-05:55
SaO2 Pre: 50
SaO2 Post: 95
Glidescope Used: yes
Other Airway Adjustments: suction
Pre-Oxygenated: yes
Portable Chest X-Ray: yes
RSI: yes
Suctioned: yes
Bilateral Breath Sounds Confirmed: Yes
Vent Settings:
Settings per ___Attending Physician
[2023-05-11] MEDS: SUBLIMAZE 70 MCG IV (06:16)
[2023-05-11] MEDS: DIPRIVAN 100 IV ×2 (06:19→16:53)
[2023-05-11] MEDS: SUBLIMAZE 100 IV ×2 (06:19→21:24)
--- NOTE | 2023-05-11 06:30 | PTCARENOTE ---
0600- pt with persistent hypoxia low 80s, tachypnea in high 40s, ICU SUGAR CANE PLANTING EQUIPMENT OPERATOR at bedside. CXR done, anesthesia paged for intubation. patient intubated with propofol and succinylcholine, calvin given for hypotension during procedure. #8 ETT, 23 at lip, taped
on right side. vent settings: AC 74-146-63-100%, peak pressures mid 30s. coarse breath sounds noted bilaterally. minimal secretions through ETT. propofol and fentanyl gtts initiated. ICU SUGAR CANE PLANTING EQUIPMENT OPERATOR at bedside placing right radial arterial line. b/l soft
wrist restraints placed. updated on situation in waiting room. plan of care ongoing.
[2023-05-11 06:40] LABS: Triglycerides 385 mg/dl (10-149)
--- NOTE | 2023-05-11 06:58 | W.PN.UPDATE ---
Update Note
Progress Note Update
3366 Glenda Swan =�continued on NIV (100%/15/01), ABG is 7.37/61/62/35.3/8.6/90.7@ 0430, RR for 28 to 35. 1.7 liters neg// 0530 Patient continue to decline, no improvement in CXR. Needed to be reintubated. at beside update.
�Intubation uneventful
--- NOTE | 2023-05-11 07:00 | W.PN.UPDATE ---
Update Note
Progress Note Update
Procedure Note: Arterial Line�
� Right Wrist Arrow 20 (06/04)�
Diagnosis:��toxic shock syndrome
IV Line Comments: Uneventful Procedure�
Emerson's test completed pre-procedure: Yes�
A-Line Comments: Sterile technique as per standard protocol, Ultrasound guided insertion�
Functioning A-line in situ: Yes�
A-line Insertion Start Time:�05�
A-line in at:��0605
--- NOTE | 2023-05-11 07:44 | W.PN.INTV ---
Today's Communication / Plan
Recommendations
Adjust ventilator
Best PEEP
Avoid plateau pressure greater than 30 to avoid barotrauma
Low tidal volume to avoid volume trauma
Antibiotics
IVGG
Hold on steroids
Diuresis as tolerated
Replace electrolytes
Assessment
-
37-year-old female with a history of ovarian cyst status post cystectomy's twice with most recent in 2013 presented with abdominal pain, chills, shortness of breath, nausea and CT chest showed free fluid in the dependent pelvis felt to be sequelae
of recent ruptured adnexal cyst, however with abdominal pain and sepsis patient went to the OR 05/08/2023-thin purulence throughout abdomen majority within pelvic, right ovary and tube inflamed and edematous-electrical assembler consulted for septic
shock/pressor/ventilator/critical care management 05/09/2023.
Assessment
Septic shock unresponsive to fluids requiring triple pressors
Ruptured right tubo-ovarian abscess with peritonitis suspected-clinical picture not entirely consistent, less likely toxic shock syndrome-no rash, etc.
Status post exploratory laparotomy with washout on 05/08/2023
Group A strep toxic shock syndrome
Ventilator dependent respiratory failure-severe acidosis-postoperative
Intubated 05/08/2023
Extubated 05/10/2023
Reintubated for CHF/ARDS 05/11/2023
Extubated
Noncardiogenic pulm edema/ARDS
Metabolic acidosis
Lactic acidosis
FELICITY
Hyponatremia-130
Hypokalemia
Hypocalcemia
Neutropenia secondary to sepsis-WBC 2.0
Anemia-hemoglobin 10.6-normocytic
Mild thrombocytopenia-platelet count 127
Coagulopathy secondary to sepsis
Hyponatremia
Conditions present prior to admission:
Ovarian cyst status post laparoscopic drainage and removal twice before.
Anxiety.
Anemia
Plan
Continues to be critically ill on pressors on a ventilator and sedated
By definition if she has normal cardiac function she has noncardiogenic bilateral infiltrates/pulmonary edema and thus has ARDS-acute respiratory distress syndrome
She was a significantly positive nearly 7 L in 24 period and hoping diuresis will improve things significantly
Currently her P/F ratio is 133 which places her into moderate ARDS
Will continue to follow PF ratio's
Early exudative phase usually occurs in the first 7 to 10 days with subsequent fibroproliferative phase of ARDS
Steroids would be indicated in fibroproliferative phase and would hold off for now especially as she is fighting an infection-will consider in the next several days if does not improve
We will employ lung protective strategy to avoid volutrauma and barotrauma
Goal VT 6 mL/kg-450 mL
Best PEEP-to ventilator between LIP (lower inflection point) and UIP-increased PEEP to 12 and possibly 15 today
Keep plateau pressure less than 30-currently 26
Avoid high driving pressure-goal <15-20 (plateau pressure - PEEP)-May increase inspiratory flow rate which would decrease I time on volume-cycled ventilation
Follow PF ratio
Neuromuscular blockade with for the first 48 hours if P/F ratio less than 150 - note recent data ([facility] 08/29/18) did not show 90 day mortality benefit with this tactic
Prone position 16 hours daily if P/F ratio less than 150
Consider recruitment maneuvers - PEEP 30-35 for 45 seconds
Allow for permissive hypercapnia if necessary
Conservative fluid management recommended
And severe ARDS there may be a role for pulmonary vascular vasodilators such as nitric oxide or prostacyclin inhaled, pulse steroids, ECMO
ABG prior to intubation 05/11/2023--66/62/7 0.37-hypoxemia, hypercapnia and metabolic alkalosis/respiratory acidosis
ABG 05/11/2023 after intubation--41/133/7 0.52-metabolic alkalosis-likely from 48 hours bicarb-since discontinued
Chest x-ray 05/11/2023-endotracheal tube tip 1.5 cm above smith, marked widespread bilateral central parenchymal opacifications
Obtain echocardiogram
Diuresis as tolerated-7 L positive/24-hour-now diuresing nicely including 1.7 L overnight
Monitor renal function, electrolytes, intake/output, lower extremity edema and weight
Replace electrolytes as needed
Nephrology following-reviewed with Dr. Núñez
Cultures reviewed-Streptococcus pyogenes from wound culture
Chlamydia and Neisseria-negative
MRSA screen-negative
Exploratory laparotomy wound cultures-Streptococcus pyogenes
Blood cultures-no growth
Empiric antibiotics
Infectious disease following-correspondence reviewed
IVGG day 05/06
Monitor leukocytosis
Tylenol [id number] for now as patient becomes quite hypotensive with temperature spikes
Surgery following-reviewed with them-Dr. Crawford
[facility] following-reviewed with them
Decrease IV fluids
Discontinue bicarb
Boluses as needed
Nephrology evaluation ongoing-correspondence reviewed
DVT prophylaxis-on Lovenox
GI prophylaxis while on ventilator-on pantoprazole
Nutrition when okay by surgery
Early mobilization/bedside range of motion
Dr. Covington reviewed case with sister at the bedside twice and on 05/10/2023-updated current clinical situation, prognosis, treatment plan
Dr. Covington reviewed the case with at the bedside 05/11/2023
Critical care statement: A total of 80 minutes of critical care time was provided for this patient today. This includes management of unstable vital signs, evaluation of the patient at bedside, reviewing the patient's pertinent medical records
including radiographs, ventilator management, pressor management, fluid resuscitation management, microbiology, laboratory evaluations, and discussion with primary team, consultants, pharmacy, nutrition, physical therapy, case management, charge
nurse, critical care nursing, and respiratory therapy.
Diagnostic data:
Chest x-ray 05/09/2023-tip of ET tube 1.5 cm above smith, mild right perihilar interstitial airways disease which may be pneumonia
Transvaginal ultrasound 05/27-suspicious for uterine adenomyosis, unremarkable appearance of ovaries bilaterally, small volume complex free fluid in the pelvis
CT abdomen and pelvis 05/08/2023-small volume free fluid in the dependent true pelvis may be sequelae of recently ruptured adnexal cyst, unremarkable pelvis
CT abdomen and pelvis 05/08/2023-lack of excretion bilaterally can be seen with septic shock, mild intrahepatic biliary dilation new, moderate abdominal pelvic ascites which is progressed
Subjective Dataa
Subjective Data
Date of Service:
Date of Service: May 11, 2023
Chief Complaint: Prenatal Genetic Counselor Follow Up, Pulmonary Follow Up and Vent Management Follow Up
Subjective:
Events reviewed-increase shortness of breath, eventually requiring noninvasive ventilation and eventual intubation, diuresing, still on 2 pressors, temperature curve defervesced seen
Review of Systems
General: Unobtainable - Sedation
Objective Data
Data Reviewed
Vital Signs / I&O / Oxygen:
Vital Signs
Temp Pulse Resp BP Pulse Ox
98.0 F 68 18 93/72 98
05/11/23 03:39 05/11/23 07:30 05/11/23 07:30 05/11/23 06:45 05/11/23 07:30
Intake and Output
05/10/23 05/11/23 05/12/23
06:59 06:59 06:59
Intake Total 9643.1 / 9717.7 3567.9 / 3610.0 42.1 / 42.1
Output Total 3095 / 3095 5025 / 5025
Balance 6548.1 / 6622.7 -1457.1 / -1415.0 42.1 / 42.1
SaO2 [CPAP/PSV] 5
SaO2 [A/C] 98
SaO2 98
Physical Exam
General: Respiratory Distress (n) and Comfortable
HEENT: Normocephalic, Anicteric and Moist Mucous Membranes
Cardiovascular: Regular Rhythm
Respiratory: Wheeze (n), Crackles (n), Rhonchi, Non-Labored Respirations, Accessory Resp Muscle Use (n), Stridor (n) and ET Tube
GI: Soft and Distended
Neurology: Awake, Alert, No Motor Deficits and Other (Sedated on a ventilator)
Skin: Warm, Good Color, Cyanosis (n), Jaundice (n) and Rash (n)
Labs/Micro/Reports
Lab Data
05/11/23 03:19
05/11/23 03:19
Laboratory Results
05/10/23 05/11/23
09:26 05:01
pH 7.40 7.37
pCO2 37 H 61 H
pO2 72 L 62 L
HCO3 22.9 35.3 H
O2 Delivery Level
Microbiology
05/08/23 23:35 Blood/Venous Blood Culture - Preliminary
No Growth in 48 hours- Final report to follow
05/08/23 23:35 Blood/Venous Blood Culture - Preliminary
No Growth in 48 hours- Final report to follow
05/09/23 01:35 Abdomen Anaerobic Culture - Preliminary
Culture pending. Anaerobic cultures are examined after 3
days incubation. Additional information to follow.
05/09/23 01:35 Abdomen Wound Culture - Preliminary
Streptococcus pyogenes
05/09/23 01:35 Abdomen Gram Stain - Preliminary
05/09/23 04:57 Nose MRSA Screen - Final
No Methicillin Resistant Staphylococcus aureus isolated.
05/09/23 11:11 Urine Chlamydia trachomatis (PCR) - Final
05/09/23 11:11 Urine Neisseria gonorrhoeae (PCR) - Final
--- NOTE | 2023-05-11 08:00 | PTCARENOTE ---
recd pt handoff at bedside, gtts and lines reviewed. ETT to vent tolerating current settings, nods head when spoken to, denies pain, reviewed situation with pt. updated periodically by RN and MDs. TARIQ with frothy purulent drainage. collins
maintained. aquacell no new drainage.
[2023-05-11 08:01] LABS: B.E. 9.8 mmol/L; HCO3 33.5 mmol/L (21-28); Ionized Calcium 1.15 mMOL/L (1.15-1.33); O2 Saturation % 98.2 % (94-98); PCO2 41 mmHg (32-35); PO2 133 mmHg (83-108); Potassium 3.8 mMOL/L (3.5-5.1); Sodium 125 mMOL/L (136-145); pH 7.52 (7.35-7.45)
[2023-05-11] MEDS: MIRALAX TUBE (08:28)
[2023-05-11 08:43] LABS: Mean Platelet Volume 11.5 fL (7.4-10.4); Platelet Count 71 10^3/uL (130-400)
[2023-05-11 08:44] LABS: Absolute Neutrophils -Man Diff 11.2 10^3/uL (1.4-6.5); Atypical Lymphocytes 2 %; Band Neutrophils 7 % (0-3); Lymphocytes 4 % (20-51); Metamyelocytes 2 % (-); Monocytes 6 % (2-9); Segmented Neutrophils 79 % (42-75)
[2023-05-11 08:46] LABS: Hypochromasia 1+; Microcytosis 1+; Normal RBC Morphology No; Platelets Checked Yes
[2023-05-11 08:47] LABS: Acanthocytes 1+; Ovalocytes 1+
[2023-05-11 08:48] LABS: Total Cells Counted 100
[2023-05-11 08:49] LABS: Toxic Granulation 2+
[2023-05-11 08:51] LABS: Vacuolated Segs 2+
--- NOTE | 2023-05-11 08:52 | W.PN.SURGUPD ---
Surgical Update
Surgical Update
Patient seen and examined. Nursing at bedside. Discussed with gallery host.
Patient initially extubated but reintubated overnight due to respiratory failure. She was reportedly having some mild nausea and typical incisional discomfort prior to reintubation.
With reintubation she is currently on vasopressors again.
Afebrile vital signs stable on current vasopressors
ABD: Softly distended, unable to assess tenderness as patient intubated and sedated.
Midline incision with Aquacel dressing in place
TARIQ with seropurulent fluid
Assessment/plan: POD #2 status post ex lap and washout for possible ruptured tubo-ovarian abscess/toxic shock syndrome with NEWS OPERATIONS MANAGER assistance.
Continue current supportive care as per gallery host and multiple consultants
Continue bowel rest with NG tube decompression at this point given reintubation
--- NOTE | 2023-05-11 09:01 | W.PN.NEPH.PH ---
Today's Communication / Plan
-
diurese
Assessment/Plan
-
Assessment
-hypotension
-FELICITY resolved
-hyponatremia
-hypocalcemia
-metabolic acidosis
-lactic acidosis
-Strep pyogenes ascites cx
-suspected tuboovarian abscess rupture
-VDRF
Plan
-wean pressors as allowed, keep MAP > 65
-lasix 40mg IV BID today
-follow lactate
-follow BMP
-follow LFTs
-critical care time 32 minutes
-
-
Date of Service: May 11, 2023
CC / HPI / ROS
-
Chief Complaint:
FELICITY
History of Present Illness:
FELICITY resolved
intubated this am
remains critically ill in ICU on pressors/vent
good response to lasix yesterday
Na remains low but stable
acidosis improved
Review of Systems:
intubated sedated
Labs
-
Labs:
WBC 13.1 10^3/uL (4.8-10.8) H 05/11/23 03:19
RBC 3.08 10^6/uL (4.20-5.40) L 05/11/23 03:19
Hgb 8.8 g/dL (12.0-16.0) L 05/11/23 03:19
Hct 26.2 % (37.0-47.0) L 05/11/23 03:19
Plt Count 71 10^3/uL (130-400) L D 05/11/23 03:19
Sodium 124 mmol/L (135-145) L 05/11/23 03:19
Potassium 3.9 mmol/L (3.5-5.1) 05/11/23 03:19
Chloride 90 mmol/L (98-107) L 05/11/23 03:19
Carbon Dioxide 34 mmol/L (22-30) H 05/11/23 03:19
BUN 16 mg/dl (7-17) 05/11/23 03:19
Creatinine 0.7 mg/dL (0.6-1.0) 05/11/23 03:19
eGFR > 60.00 05/11/23 03:19
Glucose 103 mg/dl (70-99) H 05/11/23 03:19
Calcium 7.7 mg/dl (8.4-10.2) L 05/11/23 03:19
Quj-Z-Romaxmiewek Pept 7920 pg/ml 05/09/23 03:10
Albumin 2.0 g/dl (3.5-5.0) L 05/11/23 03:19
Physical Exam
-
Vital Signs:
Vital Signs
Temp Pulse Resp BP Pulse Ox
97.6 F 68 18 93/72 96
05/11/23 08:08 05/11/23 07:30 05/11/23 07:30 05/11/23 06:45 05/11/23 08:20
Cardiovascular:: Regular rate and rhythm
Respiratory:: Bilateral: Coarse and Bilateral: Rhonchi
Lung Excursion:: Normal
Abdomen:: Nontender and Soft
Bowel Sounds:: Decreased
Extremity Edema:: +3: Bilateral:
--- NOTE | 2023-05-11 09:08 | W.PN.ID1 ---
Date of Service
Date of Service: May 11, 2023
Today's Communication
See below.
Assessment / Plan
# Group A Strep PID/ruptured right tubo-ovarian abscess with peritonitis s/p laparotomy 05/09/23. OR cx: Group A strep
# Group A strep toxic shock syndrome.
# Acute hypoxemic respiratory failure, intubated 05/11/22; pulm edema vs ARDS
- Menstruation preceded TOA. Pt uses vaginal disc receptacle during menstruation past 5 years; she cannot recall leaving it in too long.
Probable source of PID/TSS
- Pressors restarted with intubation.
- fever and leukocytosis trending down.
- Elevated lactic acid resolved
- Continue IVIG (day 2 of 3)
- Continue clinda 900mg IV q8 (for 12 doses).
- Continue ceftriaxone 2g IV q24h (d3 abx)
-Follow closely,
35min critical care time spent on case.
Chief Complaint
-: Clinical Sepsis and Other (Peritonitis)
Subjective / Review of Systems
Events noted. Patient was in respiratory distress, reintubated this am.
Vital Signs / Physical Exam
Vital Signs
Vital Signs
Temp Pulse Resp BP Pulse Ox
97.6 F 68 18 93/72 96
05/11/23 08:08 05/11/23 07:30 05/11/23 07:30 05/11/23 06:45 05/11/23 08:20
Physical Exam
Constitutional: Acutely Ill
Cardiovascular: Regular Rate and S1/S2
Pulmonary: Clear (anteriorly)
Gastrointestinal: Soft, Non Tender, Non Distended and Decreased Bowel Sounds
Genito-Urinary: Chruch and Clear Urine
Extremities: Edema
Skin: Negative Rash
Neurological: Other (sedated)
Lines: Other (RIJ CVP intact)
Objective Data
Lab Data
Lab Results
05/11/23 03:19
PT 19.5 Sec (11.4-14.6) H 05/10/23 03:36
INR 1.66 05/10/23 03:36
APTT 43.7 Sec (23.4-35.0) H 05/10/23 03:36
Estimated Creat Clear 95 ml/min 05/11/23 03:19
Lactic Acid 1.7 mmol/L (0.7-2.0) 05/11/23 03:19
Total Bilirubin 0.6 mg/dl (0.2-1.3) 05/11/23 03:19
AST 147 U/L (14-36) H 05/11/23 03:19
ALT 183 U/L (0-35) H 05/11/23 03:19
Alkaline Phosphatase 90 U/L (38-126) 05/11/23 03:19
Most recent labs reviewed.
Micro Results:
05/08/23 23:35 Blood Culture - Preliminary
Blood/Venous No Growth in 48 hours- Final report to follow
05/08/23 23:35 Blood Culture - Preliminary
Blood/Venous No Growth in 48 hours- Final report to follow
05/09/23 01:35 Anaerobic Culture - Preliminary
Abdomen Culture pending. Anaerobic cultures are examined after 3
days incubation. Additional information to follow.
05/09/23 01:35 Wound Culture - Preliminary
Abdomen Streptococcus pyogenes
Gram Stain - Preliminary
05/09/23 04:57 MRSA Screen - Final
Nose No Methicillin Resistant Staphylococcus aureus isolated.
05/09/23 11:11 Chlamydia trachomatis (PCR) - Final
Urine Neisseria gonorrhoeae (PCR) - Final
05/07/23 Pelvic/transvaginal US:Findings suspicious for uterine adenomyosis. Unremarkable sonographic appearance of the ovaries bilaterally with bilateral ovarian blood flow identified. Small volume complex free fluid in the pelvis which may be the
sequela of recently ruptured hemorrhagic cyst.
05/08/23 CT a/p with IV contrast: Lack of renal excretion bilaterally. This can be seen with septic shock. Reported hypotension. Mild intrahepatic biliary dilatation. New. This would better be evaluated� by abdominal ultrasound. Moderate
abdominopelvic ascites. Progressed. Ruptured ovarian cyst not excluded. Nonvisualization of the appendix. Acute appendicitis cannot be excluded.
05/10/23 CXR: Findings suggesting severe pulmonary edema. Bilateral perihilar and lower lobe pneumonia cannot be excluded. Significantly progressed.
05/11/23 CXR: There is a new endotracheal tube with tip in the trachea approximately 1.5 cm above the smith. Marked widespread bilateral central parenchymal opacification is again seen without significant change.
Care Review
Plan reviewed with: Nurse (ICU nurse Cecilia)
Total Time Spent with Patient (in minutes): 35
[2023-05-11] MEDS: LASIX 40 MG IV (09:42)
--- NOTE | 2023-05-11 12:00 | PTCARENOTE ---
with turning to R desaturated into the 50s briefly, recovered with 100% and cessation of all stimulation, remained positioned to R. Dr. Covington and resp here, making adjustments. ABGs noted, vent settings with peep increased to 14. weight
obtained, confirmed. family bedside. IVIG dose obtained as ordered, scheduled, see titration.
[2023-05-11] MEDS: GAMMAGARD 50 IV (12:31)
[2023-05-11 13:38] LABS: B.E. 9.9 mmol/L; HCO3 33.4 mmol/L (21-28); O2 Saturation % 98.5 % (94-98); PCO2 40 mmHg (32-35); PO2 111 mmHg (83-108); pH 7.53 (7.35-7.45)
[2023-05-11] MEDS: GAMMAGARD 200 IV (13:42)
[2023-05-11 13:45] LABS: O2 Therapy %Oxygen/Room Air 80
--- NOTE | 2023-05-11 14:13 | W.PN.UPDATE ---
Update Note
Progress Note Update
some response to lasix, but less than yesterday. increase to 80mg IV now and likely another dose this evening.
diamox given metabolic alkalosis/alkalemia
[2023-05-11] MEDS: STERILE WATER FOR INJECTION 20 ML IV (14:21)
[2023-05-11] MEDS: ROCEPHIN 2000 MG IV (14:21)
[2023-05-11] MEDS: LASIX 80 MG IV (14:21)
[2023-05-11] MEDS: LEVOPHED 258 MG IV (14:29)
--- NOTE | 2023-05-11 14:32 | CM ---
CM following re: discharge planning.
Discussed in Rounds, reviewed pt's chart, met with pt and pt's at bedside. Per Rounds meeting pt intubated this morning, currently on vasopressors again
Pt's expressed to me his emotional feelings with wet eyes. Emotional support offered and provided.
D/C plan: Continue ongoing care.
CM will follow with discharge plan updates as hospitalization progresses
[2023-05-11 14:36] LABS: Blood Urea Nitrogen 21 mg/dl (7-17); Calcium 7.7 mg/dl (8.4-10.2); Carbon Dioxide 33 mmol/L (22-30); Chloride 88 mmol/L (98-107); Estimated Creatinine Clearance 83 ml/min; Glucose 112 mg/dl (70-99); Potassium 3.4 mmol/L (3.5-5.1); Sodium 125 mmol/L (135-145); eGFR > 60.00
--- NOTE | 2023-05-11 15:19 | PTCARENOTE ---
IVIG dose completed. familiy visiting quietly, updated, skin warm. I/O, VS noted. tolerating vent settings.
--- NOTE | 2023-05-11 15:24 | W.PN.HOSP.TC ---
Today's Communication/Plan
-
Vent support.
Continue sedation
Attempt to wean pressors as tolerates.
Off IV fluids on aggressive diuresis
Echocardiogram.
Follow chest x-ray.
IV antibiotics
IVIG.
Discussed with at the bedside
Discussed with social service liaison, nephrology, ID, nursing.
Total Critical Care Time__55___ minutes. I was immediately available to the patient and staff. I personally examined, reviewed labs, diagnostic images/reports, interpretations, treatment plans, discussed patient care with other providers and
family or caregivers (if patient is unable to make decisions), entered orders as appropriate and documented the medical record.
Assessment / Plan
Assessment / Plan
Impression:
Severe sepsis
Severe septic shock with hypotension not responding to IV fluids requiring multiple vasopressors
Ruptured right tubo-ovarian abscess with peritonitis.
Wound culture isolated group A strep.
Streptococcal toxic shock syndrome
Ventilatory dependent respiratory failure, postoperative.
Severe metabolic acidosis with elevated lactic acid level.
Acute kidney injury
Hypovolemic hyponatremia.
Hypokalemia
Hypocalcemia
Acute neutropenia secondary to sepsis.
Acute anemia
Coagulopathy secondary to sepsis.
Abnormal LFTs secondary to shock liver
Conditions prior to admission:
Ovarian cyst status post cystectomy twice most recently 2013.
Anxiety
Plan
Severe sepsis secondary to ruptured right pelvic abscess.
Severe septic shock requiring multiple vasopressors.
Status post exploratory laparotomy with washout on 05/08.
Operative Findings:�
1. Thin purulence throughout abdomen, majority within pelvis, RIGHT ovary and tube inflamed and edematous
2. No inflammation/adhesions of bowel, no perforation, no bilious ascites (all bowel evaluated stomach, duodenum, SB, appendix, and entire colon), leak test of stomach and colon
Right pelvic TARIQ drain in place.
Blood/intraperitoneal cultures pending.
Initiated on empiric antibiotic Zosyn.
Wound culture isolate with group A strep.
Given the above and rapidly developed multiple organ failure group A strep toxic shock most likely.
Antibiotic tailored to ceftriaxone with addition of clindamycin (antitoxin effect)
IVIG therapy initiated on 05/10 for 3 days
Severe septic shock with hypotension requiring pressors.
Lactic acidosis.
Acute kidney injury secondary to above.
Hyponatremia/hypokalemia/hypocalcemia
Responded to alkalinized IV fluids
Lactic acid trended down to normal
Church catheter in place.
VDRF, secondary to severe sepsis and hemodynamic instability.
Weaned off sedation
Extubated on 05/10.
Developed acute pulmonary edema requiring reintubation on 05/11.
Acute pulmonary edema with differential cardiogenic versus noncardiogenic, versus large volume required for sepsis resuscitation.
Check echocardiogram
Off IV fluids
Aggressive diuresis.
Acute severe neutropenia transition into leukocytosis
Acute anemia secondary to severe illness, dilutional component, intraoperative loss.
Monitor CBC
Coagulopathy secondary to severe sepsis
Follow PTT/PT/INR/fibrinogen.
Anxiety
Currently off sertraline.
DVT prophylaxis Lovenox.
Full code
Anticipated Discharge: > 48 hours
Subjective/Interval History
-
Date of Service: May 11, 2023
Objective Data
-
Labs:
Laboratory Results
05/11/23 05/11/23 05/11/23
03:19 05:01 07:53
WBC 13.1 H
Hgb 8.8 L
Hct 26.2 L
Plt Count 71 L D
HCO3 35.3 H 33.5 H
Sodium 124 L
Potassium 3.9
Chloride 90 L
Carbon Dioxide 34 H
BUN 16
Creatinine 0.7
Glucose 103 H
Calcium 7.7 L
Total Bilirubin 0.6
AST 147 H
ALT 183 H
Alkaline Phosphatase 90
05/11/23 05/11/23 05/11/23
13:31 14:14 20:00
WBC
Hgb
Hct
Plt Count
HCO3 33.4 H
Sodium 125 L Pending
Potassium 3.4 L Pending
Chloride 88 L Pending
Carbon Dioxide 33 H Pending
BUN 21 H Pending
Creatinine 0.8 Pending
Glucose 112 H Pending
Calcium 7.7 L Pending
Total Bilirubin
AST
ALT
Alkaline Phosphatase
Vital Signs:
Vital Signs
Temp Pulse Resp BP Pulse Ox
98.1 F 71 20 87/57 95
05/11/23 11:57 05/11/23 14:21 05/11/23 13:30 05/11/23 14:21 05/11/23 13:30
I&O
05/10/23 05/11/23 05/12/23
06:59 06:59 06:59
Intake Total 9643.1 / 9717.7 3567.9 / 3610.0 692.5 / 692.5
Output Total 3095 / 3095 5025 / 5025 995 / 995
Balance 6548.1 / 6622.7 -1457.1 / -1415.0 -302.5 / -302.5
Physical Exam
-
General: Well Developed and No Apparent Distress
HEENT: Normocephalic, Atraumatic, Moist Mucous Membranes and Other (Endotracheal tube with clear secretions)
Respiratory: Clear to Auscultation
Cardiac: Regular Rhythm and S1/S2; Negative Murmur, Rub or Gallop
GI: Soft, Nontender, Nondistended and Normal Bowel Sounds; Negative Organomegaly
Rectal: Deferred by Provider
Genito-urinary: Church
Musculoskeletal: No Clubbing, No Cyanosis and No Edema
Skin: Negative Rash
Neuro: Sedated
[2023-05-11] MEDS: KCL ELIXIR 20 MEQ TUBE (15:46)
[2023-05-11] MEDS: KCL 100 IV (15:47)
[2023-05-11] MEDS: DIAMOX 2.5 MG IV ×2 (16:09→23:59)
--- NOTE | 2023-05-11 16:36 | CON.CAR ---
Addendum entered and electronically signed by Leonardo Montesinos MD 05/11/23 20:23:
37-year-old woman with history of ovarian cysts admitted on May 08 with abdominal pain and sepsis, sent urgently to operating room on May 09 for abdominal abscess and suspected ruptured to move ovarian abscess, now clinically with septic
shock, strep pyogenes peritonitis with negative blood cultures. Now pressor dependent on norepinephrine and vasopressin, echo showing ejection fraction of 25% with proBNP of 7920. Reintubated this morning.
Allergy: None
Prescription home medications: Sertraline
Inpatient medications: Vasopressin, norepinephrine, subcu Lovenox, IV clindamycin, ceftriaxone, immunoglobulin, propofol, fentanyl, acetazolamide, potassium IV
PMH: Ovarian cyst anxiety/depression
SH: , non-smoker, occasional alcohol, not employed
PSH: Ovarian cyst resected x 2
FH: Not relevant
Review of systems: Not obtainable
97/61, pulse 71, respiratory 20 on the ventilator, temp 37.1, saturations 97%, Weight was 67.4 kg own admission, weight today is 77.8 kg, Intake and output is 3.7 L positive during hospital stay
Intubated, on propofol, exam unremarkable, soft systolic murmur at [place], JVD difficult to assess, lungs diminished, crackles, abdomen benign extremities about clubbing sinus edema pulses palpable, seems to be perfusion, Neuro- grossly nonfocal,
sedated
Chest x-ray diffuse bilateral infiltrates, pulmonary edema versus pneumonia versus ARDS
Echo EF 25%, borderline dilated left atrium with at least moderate mitral regurgitation, pulmonary artery systolic pressure 32 mmHg, E/E prime normal
Echo: Sinus tachycardia nonspecific ST and T wave changes
White count 13.1, platelets 71, hemoglobin 8.8, sodium 125, potassium 3.4, BUN and creatinine 21 and 0.8, proBNP 7920, troponin is pending, repeat proBNP pending
Impression:
Toxic shock syndrome, S Pyogenes with multisystem organ failure
Acute heart failure with reduced EF
Suspected ruptured tuboovarian abscess status post laparotomy
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
Moderate mitral regurgitation
Acute liver injury
Ventilator dependent respiratory failure
FELICITY resolved
hyponatremia
Anemia with thrombocytopenia
Plan:
She presents with acute have Pref probably related to toxic shock syndrome and non-NM related myocardial injury. She is on to pressers at present, is still making urine with a normal creatinine, and has diffuse infiltrates on chest x-ray, though
difficult to discern ARDS from heart failure or pneumonia.
She is still volume overloaded. I'm hopeful that her pressor requirements will diminish over the next 24 hours. If not, and if there is concern regarding her hemodynamic status right heart catheterization might be helpful. I note that and echo
surrogate marker for left atrial pressure, E/E' was not elevated suggesting that left atrial pressure may not be high.
I discussed extensively with multiple family members. I recommended continue supportive care. Her asked about ECMO, which I felt was not clinically indicated at present.
Will check troponin and repeat proBNP. We will continue to follow.
Original Note:
Consultation
Consultation Request
Date/Time Consultation Requested: 05/11/2023
Date/Time Consultation Performed: 05/11/2023 at 1630
Requesting Provider: Dr. Dean
Performing Provider: Dr. ROCHELLE Montesinos
Reason for Consultation: Cardiomyopathy
Medical History
-
History of Present Illness:
HPI: Glenda is a 37-year-old female with past medical history of ovarian cysts and anxiety who presented to ER initially on 05/07/2023 for evaluation of abdominal and back pain. Imaging revealed that she likely had a ruptured ovarian cyst and
there was free fluid noted in the pelvis. She was hemodynamically stable at the time and was able to be discharged, however then returned the next day on 05/08/2023 she began feeling worse with increased abdominal pain, nausea, and vomiting with
associated lightheadedness and shortness of breath. She was hypotensive on arrival and was felt to be in septic shock. She was started on dopamine and Levophed. Repeat imaging showed increased abdominal fluid with no free air. Patient was taken
urgently to the OR where she underwent exploratory laparotomy and drainage of intra-abdominal abscess. She also was started on IV antibiotics. Postoperatively she remained intubated until 05/10/2023 when she was extubated, but early in a.m. on
05/11/2023 she had worsening respiratory status and required reintubation due to acute pulmonary edema. Echocardiogram was checked and revealed cardiomyopathy with EF 25% and at least moderate MR. Cardiology consulted for evaluation given
cardiomyopathy. At this time, patient remains intubated and sedated in the ICU.
PMH:
Ovarian cysts s/p cystectomy x2
Anxiety
Past Medical History
Past Medical History: Other (In HPI)
Past Surgical History: Other (Ovarian cystectomy 2003, 2012)
Social History
Tobacco: Non-Smoker
Alcohol: Occasional
Drug: None
Personal:
Living: With Family
Family History
Family History: Reviewed & Not Pertinent
Allergies / Home Medications
Allergy/AdvReac Type Severity Reaction Status Date / Time
No Known Allergies Allergy Verified 05/07/23 21:06
Medication Instructions Recorded Confirmed Type
sertraline 25 mg tablet 100 mg PO DAILY Mental 04/26/18 11/18/19 History
Health/Anxiety
Dha 1 tab PO DAILY Supplement 11/18/19 11/18/19 History
Vitamin Tablet 1 tab PO DAILY Supplement 11/18/19 11/18/19 History
acetaminophen 325 mg tablet 650 mg PO Q4HPRN PRN mild pain 11/19/19 Rx
ibuprofen 600 mg tablet 400 mg PO Q4HPRN PRN moderate 11/19/19 Rx
pain/cramps
sennosides 8.6 mg-docusate sodium 1 tab PO DAILYPRN PRN constipation 11/19/19 Rx
50 mg tablet
Review of Systems
-
Unable to obtain full review of systems at this time due to: Patient Intubation
History Source: Family (, sister, mother, father and maternal aunt at bedside)
All other systems: Negative unless noted
Physical Exam
Vital Signs
Temp Pulse Resp BP Pulse Ox
98.7 F 71 20 97/61 97
05/11/23 15:40 05/11/23 16:09 05/11/23 16:00 05/11/23 16:09 05/11/23 16:24
GEN: Intubated and sedated
HEENT: MMM
LUNGS: Intubated and on the ventilator. Coarse BS anteriorly
CV: Reg, S1/S2, distant heart sounds, but no murmur
ABD: Mildly distended
EXT: No pitting edema B/L LE
NEURO: Sedated
SKIN: No rash
Lab Results
05/11/23 03:19
[id number]-[id number] Pept 7920 pg/ml 05/09/23 03:10
Impression / Plan
-
PCP: Nisha Vann NP
Media Monitor: None, initially seen by Dr. ROCHELLE Montesinos
Impression:
Presented with abdominal pain
Severe septic shock
Streptococcal toxic shock syndrome
Ruptured R tubo-ovarian abscess w/ peritonitis
Ventilator dependent respiratory failure
Acute pulmonary edema
Cardiomyopathy, EF 25%
FELICITY
Ovarian cysts s/p cystectomy x2
Anxiety
Echo 05/11/2023: EF 25%, mildly dilated LV with global hypokinesis, at least moderate MR, PASP 32 mmHg
Plan:
-Presented with abdominal pain and found to be in severe septic shock due to ruptured right tubo-ovarian abscess. Wound culture noted group A strep. Continues on antibiotics and IVIG per ID.
-Chest x-ray 05/10/2023 showed severe pulmonary edema. She has been diuresing with IV Lasix per nephrology. Creatinine stable at 0.8 on 05/11/2023.
-Required reintubation in AM 05/11/2023 due to worsening respiratory status. Remains intubated and sedated at time of exam.
-Echocardiogram checked 05/11/2023 and revealed cardiomyopathy with EF 25% as noted above.
-No prior cardiac history or workup. Consider eventual ischemic evaluation
-Hypotension and shock limit medical therapy currently.
-K 3.4. Agree with repletion.
-Hemoglobin down to 8.8. Continue to follow.
-Vaso running at 0.04 and Levo running at 9.
-Patient is diuresing following Lasix 80 mg IV at 1400 and then a dose of Diamox a couple of hours later.
HPI: Glenda is a 37-year-old female with past medical history of ovarian cysts and anxiety who presented to ER initially on 05/07/2023 for evaluation of abdominal and back pain. Imaging revealed that she likely had a ruptured ovarian cyst and
there was free fluid noted in the pelvis. She was hemodynamically stable at the time and was able to be discharged, however then returned the next day on 05/08/2023 she began feeling worse with increased abdominal pain, nausea, and vomiting with
associated lightheadedness and shortness of breath. She was hypotensive on arrival and was felt to be in septic shock. She was started on dopamine and Levophed. Repeat imaging showed increased abdominal fluid with no free air. Patient was taken
urgently to the OR where she underwent exploratory laparotomy and drainage of intra-abdominal abscess. She also was started on IV antibiotics. Postoperatively she remained intubated until 05/10/2023 when she was extubated, but early in a.m. on
05/11/2023 she had worsening respiratory status and required reintubation due to acute pulmonary edema. Echocardiogram was checked and revealed cardiomyopathy with EF 25% and at least moderate MR. Cardiology consulted for evaluation given
cardiomyopathy. At this time, patient remains intubated and sedated in the ICU.
Data Reviewed
-
EKG: Tracing Personally Visualized and interpreted
Radiology: Report Reviewed by me
CT Scan: Report Reviewed by me
Ultrasound: Report Reviewed by me
Medical Tests (Nuc Med, Echo etc): Report Reviewed by me
Labs: Labs Reviewed by me
Old Records: Reviewed
--- NOTE | 2023-05-11 16:52 | W.PN.OBG.DWH ---
Today's Communication / Plan
-
-spoke with fuse assembler earlier today, overall he feels she is doing better, now focusing on addressing her fluid overload. Advised that if she is not improving the way that they expect she should, with TSS, she may need a hysterectomy and if so
this will be best handled in a tertiary care center so they should consider a transfer of care in that setting.
-Pelvic exam today confirms no retained foreign body in vagina
Assessment/Plan
-
37yo HD#4 POD#3 with septic shock, suspected TSS ?Ruptured TOA
-s/p Exp Lap and peritoneal washout with Gen Surg/[employer]AD
-spoke with fuse assembler earlier today, overall he feels she is doing better, now focusing on addressing her fluid overload. Advised that if she is not improving the way that they expect she should, with TSS, she may need a hysterectomy and if so
this will be best handled in a tertiary care center so they should have a low threshold for transfer of care.
-Pelvic exam today confirms no retained foreign body in vagina
-Continue Clinda/Rocephin per ID Recs
-Continue critical care management
Subjective Data
-
Patient seen by me at approx noon
S: patient was reintubated early this AM, due worsening SOB 2/2 pulmonary edema. She has been getting lasix to help with this. Nurse notes that she is having some vaginal bleeding, of note, patient was at the tail end of her period on admission.
Objective Data
-
Laboratory Results
05/11/23 03:19
Vital Signs
Temp Pulse Resp BP Pulse Ox
98.7 F 71 20 97/61 97
05/11/23 15:40 05/11/23 16:09 05/11/23 16:00 05/11/23 16:09 05/11/23 16:24
Blood cx: NG x 48 hrs
Abd Cx: Strep Pyogenes
CXR 2/7: Severe Pulm Edema
Drain Output: 125cc since 2AM
UO: 50-350 cc/hr
Gen: intubated, minimally responsive at this time
SVE: No foreign body in the vagina (no tampon no diva cup) cervix without masses, small amount of dark red blood in vagina
Laboratory Results
-
05/11/23 03:19
Laboratory Results
PT 19.5 Sec (11.4-14.6) H 05/10/23 03:36
INR 1.66 05/10/23 03:36
APTT 43.7 Sec (23.4-35.0) H 05/10/23 03:36
pH 7.53 (7.35-7.45) H 05/11/23 13:31
pCO2 40 mmHg (32-35) H 05/11/23 13:31
pO2 111 mmHg (83-108) H 05/11/23 13:31
HCO3 33.4 mmol/L (21-28) H 05/11/23 13:31
Lactic Acid 1.7 mmol/L (0.7-2.0) 05/11/23 03:19
Total Bilirubin 0.6 mg/dl (0.2-1.3) 05/11/23 03:19
AST 147 U/L (14-36) H 05/11/23 03:19
ALT 183 U/L (0-35) H 05/11/23 03:19
Alkaline Phosphatase 90 U/L (38-126) 05/11/23 03:19
Lipase 13 U/L (23-300) L 05/10/23 03:36
--- NOTE | 2023-05-11 16:57 | W.PN.UPDATE ---
Update Note
Progress Note Update
Reevaluated the patient's several times throughout the day at the bedside
Ventilator adjusted multiple times to improve oxygenation
Additional diuretics provided as well as electrolyte repletion
Echocardiogram with significantly reduced ejection fraction-hopefully related to sepsis
Right regurgitation was also noted
Reviewed the findings of the echocardiogram and current clinical situation multiple times throughout the day with the family members at the bedside including most recently with patient's mother, father, , and sister
Explained that supportive care is needed at this point
Reviewed with cardiology as well as primary team and nephrology
Total time spent-critical care-over 80 minutes/today
[2023-05-11] MEDS: LOVENOX 40 MG SC (17:48)
--- NOTE | 2023-05-11 18:16 | PTCARENOTE ---
turned, no desats this time, did preoxygenate, skin care, pads changed, repositioned, scant vag bleeding. seen by Dr. Montesinos. family remains, questions answered. some frothy purulent drainage, less amount, from TARIQ.
[2023-05-11 19:42] LABS: Urine Albumin Negative (Neg - Trace); Urine Bilirubin Negative (Negative); Urine Character Clear (Clear); Urine Color Yellow; Urine Glucose Negative (Negative); Urine Ketone Negative (Negative); Urine Leukocyte Negative (Negative); Urine Nitrite Negative (Negative); Urine Occult Blood 1+ (Negative); Urine Urobilinogen Negative (Neg - 1+)
[2023-05-11 19:50] LABS: Urine Red Blood Cell 16-20 /HPF (0-2); Urine Squamous Cell 0-2 /LPF (Few); Urine White Cell None Seen /HPF (0-5)
--- NOTE | 2023-05-11 20:00 | PTCARENOTE ---
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 afebrile. SR HR 60s-70s, RIJ WNL- levo, vaso, prop, fent gtts infusing per work list. R radial antonio intact, leveled & zeroed. ett #11/23, MV- AC 20/450/50/14, Sat 98%. CHRIS with
aquacel, old drainage noted, distended, hypo BS, R abd TARIQ drain with yellow/frothy drainage. R NGT to suction- scant output. Church catheter draining yellow urine. family updated at bedside.
[2023-05-11 20:54] LABS: B.E. 9.8 mmol/L; HCO3 33.5 mmol/L (21-28); O2 Saturation % 98.3 % (94-98); PCO2 41 mmHg (32-35); PO2 97 mmHg (83-108); pH 7.52 (7.35-7.45)
[2023-05-11 21:11] LABS: Blood Urea Nitrogen 22 mg/dl (7-17); Calcium 7.5 mg/dl (8.4-10.2); Carbon Dioxide 31 mmol/L (22-30); Chloride 88 mmol/L (98-107); Estimated Creatinine Clearance 78 ml/min; Glucose 113 mg/dl (70-99); Potassium 3.7 mmol/L (3.5-5.1); Sodium 124 mmol/L (135-145); eGFR > 60.00
--- NOTE | 2023-05-12 00:15 | PTCARENOTE ---
Reassessed, preoxygenated prior to boost/repositioning in bed, coughing but tolerated. new ETT daniel placed along w/RT, ett to right side. no changes.
[2023-05-12] MEDS: DIPRIVAN 100 IV ×2 (01:45→11:47)
[2023-05-12] MEDS: PITRESSIN 100 IV (03:04)
[2023-05-12 04:36] LABS: B.E. 8.5 mmol/L; HCO3 31.8 mmol/L (21-28); O2 Saturation % 99.1 % (94-98); PCO2 38 mmHg (32-35); PO2 147 mmHg (83-108); pH 7.53 (7.35-7.45)
[2023-05-12 04:40] LABS: Hematocrit 25.1 % (37.0-47.0); Hemoglobin 8.7 g/dL (12.0-16.0); Ionized Calcium 1.15 mMOL/L (1.15-1.33); Mean Corp Hgb Conc. 34.7 g/dL (33.0-37.0); Mean Corpuscular Hgb 28.7 pg (27.0-31.0); Mean Corpuscular Volume 82.8 fL (81.0-99.0); Mean Platelet Volume 12.1 fL (7.4-10.4); O2 Therapy 60; Platelet Count 76 10^3/uL (130-400); Red Blood Cell Count 3.03 10^6/uL (4.20-5.40); Red Cell Dist. Width 13.6 % (11.5-14.5); White Blood Cell Count 14.7 10^3/uL (4.8-10.8)
[2023-05-12 04:49] LABS: Lactic Acid 2.2 mmol/L (0.7-2.0)
[2023-05-12] MEDS: TYLENOL ORAL SOLUTION 650 MG PO ×5 (05:00→19:37)
[2023-05-12] MEDS: CLEOCIN 50 IV ×3 (05:00→19:37)
[2023-05-12 05:01] LABS: ALT (SGPT) 189 U/L (0-35); AST (SGOT) 141 U/L (14-36); Alkaline Phosphatase 111 U/L (38-126); Blood Urea Nitrogen 23 mg/dl (7-17); Calcium 7.2 mg/dl (8.4-10.2); Carbon Dioxide 29 mmol/L (22-30); Chloride 93 mmol/L (98-107); Direct Bilirubin 0.5 mg/dl (0.0-0.4); Estimated Creatinine Clearance 78 ml/min; Glucose 100 mg/dl (70-99); Magnesium 1.4 mg/dl (1.6-2.3); Potassium 3.2 mmol/L (3.5-5.1); Sodium 125 mmol/L (135-145); Total Bilirubin 0.5 mg/dl (0.2-1.3); eGFR > 60.00
[2023-05-12 05:09] LABS: APTT 40.3 Sec (23.4-35.0); Fibrinogen 361 MG/DL (199-459); INR 1.29; PT 16.1 Sec (11.4-14.6)
[2023-05-12 05:12] LABS: D-Dimer 2.02 ug/mlFEU (0.00-0.50)
[2023-05-12] MEDS: ATIVAN 0.5 MG IV (05:12)
--- NOTE | 2023-05-12 05:30 | PTCARENOTE ---
no changes in pt assessment, pt slightly restless/coughing against vent before am turn- prn ativan/preoxygenated- tolerated turn/maintained Sat in high 90s-100%. Fi02 to 40% at 0515. brandon care- small amt vaginal blood noted. TARIQ output continues to
be frothy yellow. K+/Mg to be replaced-see MAR. sister remains at bedside-updated.
[2023-05-12] MEDS: MAGNESIUM SULFATE 50 IV (05:50)
[2023-05-12] MEDS: LEVOPHED 258 MG IV ×2 (05:51→18:57)
[2023-05-12] MEDS: KCL 100 IV ×3 (05:51→19:37)
[2023-05-12 06:00] VITALS: BMI 29.2
--- NOTE | 2023-05-12 07:33 | PTCARENOTE ---
Recd pt handoff at bedside. Turned, skin care, brandon care. ETT to vent, tolerating current settings. VS remain as noted, levo and vaso as ordered. collins draining, TARIQ to bulb frothy purulent. Byron PAPPAS scant drainage, remains to suction. family
bedside. calm. not awake at this time, explained care and support given. did grimace with turn, relaxed once positioned for comfort. IJ line dressing intact.
--- NOTE | 2023-05-12 07:48 | W.PN.INTV ---
Today's Communication / Plan
Recommendations
Antibiotics
Decrease IV fluids
Wean pressors
Adjust ventilator-wean FiO2, then wean PEEP
Follow chest x-ray
Follow ABG
Assessment
-
37-year-old female with a history of ovarian cyst status post cystectomy's twice with most recent in 2013 presented with abdominal pain, chills, shortness of breath, nausea and CT chest showed free fluid in the dependent pelvis felt to be sequelae
of recent ruptured adnexal cyst, however with abdominal pain and sepsis patient went to the OR 05/08/2023-thin purulence throughout abdomen majority within pelvic, right ovary and tube inflamed and edematous-envelope sealer consulted for septic
shock/pressor/ventilator/critical care management 05/09/2023.
Assessment
Septic shock unresponsive to fluids requiring triple pressors
Ruptured right tubo-ovarian abscess with peritonitis suspected-clinical picture not entirely consistent, less likely toxic shock syndrome-no rash, etc.
Status post exploratory laparotomy with washout on 05/08/2023
Group A strep toxic shock syndrome
Ventilator dependent respiratory failure-severe acidosis-postoperative
Intubated 05/08/2023
Extubated 05/10/2023
Reintubated for CHF/ARDS 05/11/2023
Extubated
Noncardiogenic pulm edema/ARDS
Metabolic acidosis
Lactic acidosis
FELICITY
Hyponatremia-130
Hypokalemia
Hypocalcemia
Neutropenia secondary to sepsis-WBC 2.0
Anemia-hemoglobin 10.6-normocytic
Mild thrombocytopenia-platelet count 127
Coagulopathy secondary to sepsis
Hyponatremia
Metabolic alkalosis
Cardiomyopathy-EF 25%-suspect related to sepsis
Moderate mitral regurgitation
Conditions present prior to admission:
Ovarian cyst status post laparoscopic drainage and removal twice before.
Anxiety.
Anemia
Plan
Critically ill on pressors on a ventilator and sedated
Much of decompensation is likely cardiogenic pulmonary edema-there may be a noncardiogenic component as well with leaky capillary/sepsis/ARDS
Steroids would be indicated in fibroproliferative phase and would hold off for now especially as she is fighting an infection-will consider in the next several days if does not improve
Ventilator settings reviewed
Continue to employ lung protective strategy to avoid volutrauma and barotrauma
Goal VT 6 mL/kg-450 mL
Best PEEP-to ventilator between LIP (lower inflection point) and UIP-PEEP currently at 14
Keep plateau pressure less than 30-currently 26
Avoid high driving pressure-goal <15-20 (plateau pressure - PEEP)-May increase inspiratory flow rate which would decrease I time on volume-cycled ventilation
Follow PF ratio
Neuromuscular blockade with for the first 48 hours if P/F ratio less than 150 - note recent data ([facility] 08/29/18) did not show 90 day mortality benefit with this tactic
Prone position 16 hours daily if P/F ratio less than 150
Consider recruitment maneuvers - PEEP 30-35 for 45 seconds
Allow for permissive hypercapnia if necessary
Conservative fluid management recommended
And severe ARDS there may be a role for pulmonary vascular vasodilators such as nitric oxide or prostacyclin inhaled, pulse steroids, ECMO
ABG prior to intubation 05/11/2023--66/62/7 0.37-hypoxemia, hypercapnia and metabolic alkalosis/respiratory acidosis
ABG 05/11/2023 after intubation--41/133/7 0.52-metabolic alkalosis-likely from 48 hours bicarb-since discontinued
Diamox initiated
Chest x-ray 05/11/2023-endotracheal tube tip 1.5 cm above smith, marked widespread bilateral central parenchymal opacifications
Obtain echocardiogram
Continue diuresis as tolerated
Follow renal function, electrolytes, intake/output, lower extremity edema and weight
Replace electrolytes as needed
Nephrology following-reviewed with Dr. Clark
Cultures reviewed-Streptococcus pyogenes from wound culture
Chlamydia and Neisseria-negative
MRSA screen-negative
Exploratory laparotomy wound cultures-Streptococcus pyogenes
Blood cultures-no growth
Empiric antibiotics
Infectious disease following-correspondence reviewed
IVGG day 06/03-will finish 05/12/2023
Monitor leukocytosis
Tylenol [id number] for now as patient becomes quite hypotensive with temperature spikes
Surgery following-reviewed with them-Dr. Crawford
[facility] following-reviewed with them
Decrease IV fluids
Bicarb discontinued
Diamox added
Boluses as needed
Nephrology evaluation ongoing-correspondence reviewed
DVT prophylaxis-on Lovenox
GI prophylaxis while on ventilator-on pantoprazole
Nutrition when okay by surgery
Early mobilization/bedside range of motion
Dr. Covington reviewed case with sister at the bedside twice and on 05/10/2023-updated current clinical situation, prognosis, treatment plan
Dr. Covington reviewed the case with at the bedside 05/11/[address] Covington reviewed current clinical situation, improvements, hospital course thus far, prognosis, etc. with and sister at the bedside 05/12/2023
Critical care statement: A total of 45 minutes of critical care time was provided for this patient today. This includes management of unstable vital signs, evaluation of the patient at bedside, reviewing the patient's pertinent medical records
including radiographs, ventilator management, pressor management, fluid resuscitation management, microbiology, laboratory evaluations, and discussion with primary team, consultants, pharmacy, nutrition, physical therapy, case management, charge
nurse, critical care nursing, and respiratory therapy.
Diagnostic data:
Chest x-ray 05/09/2023-tip of ET tube 1.5 cm above smith, mild right perihilar interstitial airways disease which may be pneumonia
Transvaginal ultrasound 05/27-suspicious for uterine adenomyosis, unremarkable appearance of ovaries bilaterally, small volume complex free fluid in the pelvis
CT abdomen and pelvis 05/08/2023-small volume free fluid in the dependent true pelvis may be sequelae of recently ruptured adnexal cyst, unremarkable pelvis
CT abdomen and pelvis 05/08/2023-lack of excretion bilaterally can be seen with septic shock, mild intrahepatic biliary dilation new, moderate abdominal pelvic ascites which is progressed
Subjective Dataa
Subjective Data
Date of Service:
Date of Service: May 12, 2023
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
Subjective:
Sedated on the ventilator, no increase secretions, recovers faster, FiO2 is able to be weaned, PEEP still at 14,
Review of Systems
General: Other (Per HPI)
Objective Data
Data Reviewed
Vital Signs / I&O / Oxygen:
Vital Signs
Temp Pulse Resp BP Pulse Ox
98.6 F 66 20 89/61 99
05/12/23 04:00 05/12/23 06:00 05/12/23 06:00 05/11/23 23:59 05/12/23 06:00
Intake and Output
05/11/23 05/12/23 05/13/23
06:59 06:59 06:59
Intake Total 3567.9 / 3610.0 1832.0 / 1832.0
Output Total 5025 / 5025 2560 / 2560
Balance -1457.1 / -1415.0 -728.0 / -728.0
SaO2 [CPAP/PSV] 5
SaO2 [A/C] 100
SaO2 99
Physical Exam
General: Respiratory Distress (n) and Comfortable
HEENT: Normocephalic, Anicteric and Moist Mucous Membranes
Cardiovascular: Regular Rhythm
Respiratory: Wheeze (n), Crackles (n), Rhonchi, Non-Labored Respirations, Accessory Resp Muscle Use (n), Stridor (n) and ET Tube
GI: Soft and Distended
Neurology: Awake, Alert, No Motor Deficits and Other (Sedated on a ventilator)
Skin: Warm, Good Color, Cyanosis (n), Jaundice (n) and Rash (n)
Labs/Micro/Reports
Lab Data
05/12/23 04:29
05/12/23 04:29
Laboratory Results
05/11/23 05/11/23 05/11/23
07:53 13:31 20:41
PT
INR
APTT
pH 7.52 H 7.53 H 7.52 H
pCO2 41 H 40 H 41 H
pO2 133 H 111 H 97
HCO3 33.5 H 33.4 H 33.5 H
O2 Delivery Level %oxygen/room air 80
05/12/23
04:29
PT 16.1 H
INR 1.29
APTT 40.3 H
pH 7.53 H
pCO2 38 H
pO2 147 H
HCO3 31.8 H
O2 Delivery Level 60
Microbiology
05/08/23 23:35 Blood/Venous Blood Culture - Preliminary
No Growth in 72 hours- Final report to follow
05/08/23 23:35 Blood/Venous Blood Culture - Preliminary
No Growth in 72 hours- Final report to follow
05/09/23 01:35 Abdomen Anaerobic Culture - Preliminary
Culture pending. Anaerobic cultures are examined after 3
days incubation. Additional information to follow.
05/09/23 01:35 Abdomen Wound Culture - Preliminary
Streptococcus pyogenes
05/09/23 01:35 Abdomen Gram Stain - Preliminary
05/09/23 04:57 Nose MRSA Screen - Final
No Methicillin Resistant Staphylococcus aureus isolated.
05/09/23 11:11 Urine Chlamydia trachomatis (PCR) - Final
05/09/23 11:11 Urine Neisseria gonorrhoeae (PCR) - Final
[2023-05-12] MEDS: MIRALAX 17 GRAMS TUBE (07:58)
--- NOTE | 2023-05-12 08:03 | W.PN.NEPH.PH ---
Today's Communication / Plan
-
pressors
diamox
K repletion
lasix
repeat bmp at 1500
Assessment/Plan
-
Assessment
-hypotension
-FELICITY resolved
-hyponatremia
-hypocalcemia
-metabolic alkalosis
-s/p lactic acidosis
-Strep pyogenes ascites cx
-suspected tuboovarian abscess rupture
-VDRF
Plan
-hyponatremia persists
-replete K
-wean pressors as allowed, keep MAP > 65
-maintain lasix 40mg IV BID today given hypoxia and weights gains and hyponatremia
-diamox course was provided for alkalemia
-follow lactate
-follow BMP
-follow LFTs
-critical care time 32 minutes
Total Time Spent with Patient (in minutes): 32
-
-
Date of Service: May 12, 2023
CC / HPI / ROS
-
Chief Complaint:
FELICITY
History of Present Illness:
FELICITY resolved
intubated this am
remains critically ill in ICU on pressors/vent
Na remains low but stable
acidosis improved now alkalemic by ABG
Review of Systems:
intubated sedated
non oliguric
Labs
-
Labs:
WBC 14.7 10^3/uL (4.8-10.8) H 05/12/23 04:29
RBC 3.03 10^6/uL (4.20-5.40) L 05/12/23 04:29
Hgb 8.7 g/dL (12.0-16.0) L 05/12/23 04:29
Hct 25.1 % (37.0-47.0) L 05/12/23 04:29
Plt Count 76 10^3/uL (130-400) L 05/12/23 04:29
Sodium 125 mmol/L (135-145) L 05/12/23 04:29
Potassium 3.2 mmol/L (3.5-5.1) L 05/12/23 04:29
Chloride 93 mmol/L (98-107) L 05/12/23 04:29
Carbon Dioxide 29 mmol/L (22-30) 05/12/23 04:29
BUN 23 mg/dl (7-17) H 05/12/23 04:29
Creatinine 1.0 mg/dL (0.6-1.0) 05/12/23 04:29
eGFR > 60.00 05/12/23 04:29
Glucose 100 mg/dl (70-99) H 05/12/23 04:29
Calcium 7.2 mg/dl (8.4-10.2) L 05/12/23 04:29
Tge-T-Zcjyewcdqxc Pept 7920 pg/ml 05/09/23 03:10
Albumin 2.0 g/dl (3.5-5.0) L 05/12/23 04:29
Physical Exam
-
Vital Signs:
Vital Signs
Temp Pulse Resp BP Pulse Ox
98.6 F 66 20 89/61 99
05/12/23 04:00 05/12/23 06:00 05/12/23 06:00 05/11/23 23:59 05/12/23 06:00
Cardiovascular:: Regular rate and rhythm
Respiratory:: Bilateral: Coarse
Lung Excursion:: Normal
Abdomen:: Nontender and Soft
Bowel Sounds:: Decreased
Church Catheter: Yes
Other Findings::
gen:intubated and sedated
[2023-05-12 08:08] VITALS: BP 92/69
[2023-05-12] MEDS: DIAMOX 2.5 MG IV ×2 (08:24→18:04)
--- NOTE | 2023-05-12 08:35 | W.PN.ID1 ---
Date of Service
Date of Service: May 12, 2023
Today's Communication
Last day of IVIG.
Continue short course clinda.
Continue ceftriaxone.
Assessment / Plan
# Group A Strep PID/ruptured right tubo-ovarian abscess with peritonitis s/p laparotomy 05/09/23. OR cx: Group A strep
# Group A strep toxic shock syndrome.
# Acute hypoxemic respiratory failure, intubated 05/11/22; pulm edema vs ARDS, improving with diuresis
# Cardiomyopathy EF 25%, likely sepsis induced
- Menstruation preceded TOA. Pt uses vaginal disc receptacle during menstruation past 5 years; she cannot recall leaving it in too long.
Probable source of PID/TSS
Per OUTREACH ASSOCIATE, no retained foreign body in vagina; if condition does not improve, transfer to tertiary center for hysterectomy.
-Weaning 2 pressors
- fever and leukocytosis trending down.
- Elevated lactic acid resolved
- Last day of IVIG (day 3 of 3)
- Continue clinda 900mg IV q8 (dose 5 of 9 doses).
- Continue ceftriaxone 2g IV q24h (d4 abx)
-Follow closely,
30min critical care time spent on case.
Chief Complaint
-: Clinical Sepsis and Other (Peritonitis)
Subjective / Review of Systems
Remains intubated.
Vital Signs / Physical Exam
Vital Signs
Vital Signs
Temp Pulse Resp BP Pulse Ox
98.6 F 66 20 92/69 98
05/12/23 04:00 05/12/23 08:24 05/12/23 06:00 05/12/23 08:24 05/12/23 08:15
Physical Exam
Constitutional: Acutely Ill
Eyes: Sclera Anicteric
Cardiovascular: Regular Rate and S1/S2
Pulmonary: Clear (anteriorly)
Gastrointestinal: Soft, Non Distended, Decreased Bowel Sounds and Other (TARIQ drain cloudy mild frothy serous fluid, ex-lap site dried blood)
Genito-Urinary: Church and Clear Urine
Extremities: Negative Edema
Objective Data
Lab Data
Lab Results
05/12/23 04:29
PT 16.1 Sec (11.4-14.6) H 05/12/23 04:29
INR 1.29 05/12/23 04:29
APTT 40.3 Sec (23.4-35.0) H 05/12/23 04:29
Estimated Creat Clear 78 ml/min 05/12/23 04:29
Lactic Acid 2.2 mmol/L (0.7-2.0) H 05/12/23 04:29
Total Bilirubin 0.5 mg/dl (0.2-1.3) 05/12/23 04:29
AST 141 U/L (14-36) H 05/12/23 04:29
ALT 189 U/L (0-35) H 05/12/23 04:29
Alkaline Phosphatase 111 U/L (38-126) 05/12/23 04:29
Most recent labs reviewed.
Micro Results:
05/08/23 23:35 Blood Culture - Preliminary
Blood/Venous No Growth in 72 hours- Final report to follow
05/08/23 23:35 Blood Culture - Preliminary
Blood/Venous No Growth in 72 hours- Final report to follow
05/09/23 01:35 Anaerobic Culture - Preliminary
Abdomen Culture pending. Anaerobic cultures are examined after 3
days incubation. Additional information to follow.
05/09/23 01:35 Wound Culture - Preliminary
Abdomen Streptococcus pyogenes
Gram Stain - Preliminary
05/09/23 04:57 MRSA Screen - Final
Nose No Methicillin Resistant Staphylococcus aureus isolated.
05/09/23 11:11 Chlamydia trachomatis (PCR) - Final
Urine Neisseria gonorrhoeae (PCR) - Final
05/07/23 Pelvic/transvaginal US:Findings suspicious for uterine adenomyosis. Unremarkable sonographic appearance of the ovaries bilaterally with bilateral ovarian blood flow identified. Small volume complex free fluid in the pelvis which may be the
sequela of recently ruptured hemorrhagic cyst.
05/08/23 CT a/p with IV contrast: Lack of renal excretion bilaterally. This can be seen with septic shock. Reported hypotension. Mild intrahepatic biliary dilatation. New. This would better be evaluated� by abdominal ultrasound. Moderate
abdominopelvic ascites. Progressed. Ruptured ovarian cyst not excluded. Nonvisualization of the appendix. Acute appendicitis cannot be excluded.
05/10/23 CXR: Findings suggesting severe pulmonary edema. Bilateral perihilar and lower lobe pneumonia cannot be excluded. Significantly progressed.
05/11/23 CXR: There is a new endotracheal tube with tip in the trachea approximately 1.5 cm above the smith. Marked widespread bilateral central parenchymal opacification is again seen without significant change.
05/12/23 CXR:�Patchy foci of airspace consolidation bilaterally. Improved aeration compared to prior study. Differential diagnosis includes pulmonary edema, multifocal pneumonia, and/or ARDS. Speed of improvement is most suggestive of improved
pulmonary edema.
Care Review
Plan reviewed with: Nurse (ICU nurse Cecilia.)
Total Time Spent with Patient (in minutes): 30
[2023-05-12] MEDS: LASIX 40 MG IV ×2 (08:56→15:59)
--- NOTE | 2023-05-12 09:24 | W.PN.GS2 ---
Today's Communication / Plan
-
-- Supportive care per ICU
-- Abx per ID
-- Trickle TF, assess tolerance if any issues switch to TPN
Assessment / Plan
-
37F with septic shock most likely 2/2 ruptured TOA POD#2 s/p ex-lap and washout
Afebrile over the past 24 hrs, remains on pressors though down
Re-intubated due to acute pulonary failure, possible ARDS
Adequate UOP, current diuresis given above
Lactic acid normalized, now slight bump with diuresis and ARDS picture
WBC slightly improved but remains elevated
Micro: strep pyogenes
Plan:
Wean pressors as able
IV abx per ID
Follow cultures
NPO/NGT - will start trickle TF and assess tolerance if unable to tolerate would switch to TPN
DVT ppx
Will follow
Subjective Data
-
Date of Service: May 12, 2023
Intubated and sedated. Nursing reports weans down on pressors. Continues to make adequate urine. Afebrile. Reports having a smear of BM yesterday.
Objective Data
-
Intake and Output
05/11/23 05/12/23 05/13/23
06:59 06:59 06:59
Intake Total 3567.9 / 3610.0 1832.0 / 1924.3 184.6 / 184.6
Output Total 5025 / 5025 2560 / 2605 90 / 90
Balance -1457.1 / -1415.0 -728.0 / -680.7 94.6 / 94.6
Intake:
IV fluids (Total) 2937.9 / 2980.0 1277.0 / 1319.3 84.6 / 84.6
500 nss 500 / 500
Gammagard IV 550 / 550 263 / 263
Sterile Water For Injection 880 / 880
1000 ml 1,000 ml @ 80 mls/hr IV
.[id number] DENNIS with Sodium
Bicarbonate 150 Meq Rx#:
[id number]
fentanyl 5 / 10 120 / 125 10 / 10
levo 706.1 / 724.9 417.0 / 433.9 33.8 / 33.8
precedex 8.8 / 8.8
propofol 189.0 / 197.4 16.8 / 16.8
vaso 288 / 300 288 / 300 24 / 24
IV piggybacks 510 / 510 375 / 425 100 / 100
Amount instilled into GI Tube ( 120 / 120 180 / 180
Total)
[place] Sump 120 / 120 180 / 180
Output:
Drain Output (Total) 290 / 290 225 / 225
Right Abdomen 290 / 290 225 / 225
Gastrointestinal tube output ( 500 / 500 0 / 0
Total)
[place] Sump 500 / 500 0 / 0
Urine, Church 4235 / 4235 2335 / 2380 90 / 90
Vital Signs
Temp Pulse Resp BP Pulse Ox
98.6 F 65 20 87/58 98
05/12/23 04:00 05/12/23 08:56 05/12/23 06:00 05/12/23 08:56 05/12/23 08:15
Lab Results
05/12/23 04:29
Calcium 7.2 mg/dl (8.4-10.2) L 05/12/23 04:29
Magnesium 1.4 mg/dl (1.6-2.3) L 05/12/23 04:29
Total Bilirubin 0.5 mg/dl (0.2-1.3) 05/12/23 04:29
Direct Bilirubin 0.5 mg/dl (0.0-0.4) H 05/12/23 04:29
AST 141 U/L (14-36) H 05/12/23 04:29
ALT 189 U/L (0-35) H 05/12/23 04:29
Alkaline Phosphatase 111 U/L (38-126) 05/12/23 04:29
Total Protein 5.0 g/dl (6.3-8.2) L 05/12/23 04:
Albumin 2.0 g/dl (3.5-5.0) L 05/12/23 04:29
Physical Exam
-
Gen: intubated and sedated
HEENT: OGT with gatsric output
Abd: soft, mild distension, midline dressing with shadowing, TARIQ seropurulent
[2023-05-12 09:41] LABS: NT-proBNP 14100 pg/ml
--- NOTE | 2023-05-12 10:38 | W.PN.CARDCBS ---
Today's Communication / Plan
-
Continue IV furosemide
Wean norepinephrine
Hopefully to wean from ventilator over next 24 to 48 hours
Impression / Plan
-
PCP: Nisha Vann NP
Elementary Educator: None, initially seen by Dr. ROCHELLE Montesinos
Impression:
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
MSOF
Acute HFrEF
Type II myocardial infarction, troponin 2.3
Ruptured R tubo-ovarian abscess w/ peritonitis
Ventilator dependent respiratory failure
Acute pulmonary edema
Nonischemic cardiomyopathy, EF 25% likely related to TSS
Moderate mitral regurgitation
FELICITY, improved
Acute hepatic injury
Ovarian cysts s/p cystectomy x2
Anxiety
Echo 05/11/2023: EF 25%, mildly dilated LV with global hypokinesis, at least moderate MR, PASP 32 mmHg
Plan:
Vent dependent respiratory failure: Probably mostly cardiogenic, possibly with element of ARDS, seems to be improving, chest x-ray looks better and FiO2 is diminished hopefully to wean over the next 24 to 48 hours
Acute HFrEF: Improving with IV Lasix. Pressor requirements are diminishing, now off vasopressin, on norepinephrine alone. We could consider dopamine but for now we will stay the course as clinical improvement is apparent. Continue IV Lasix
Shock: Improving, continue to support with norepinephrine, hopefully exotoxin clearance will continue
Hyponatremia: Will likely improve as vasopressin is discontinued
Type II myocardial infarction: Continue supportive care
Nonischemic cardiomyopathy/mitral regurgitation: Suspect ejection fraction will improve, will recheck echo early next week
Based on clinical course will initiate GDMT for LV dysfunction as blood pressure permits.
Anemia/thrombocytopenia: Continue to monitor
Hypercarbia: On acetazolamide
Prolonged QT: Suspect QT will normalize over the next week
Overall, considerable progress over the last 24 hours
Critical care time, 35 minutes, discussed with
HPI: Glenda is a 37-year-old female with past medical history of ovarian cysts and anxiety who presented to ER initially on 05/07/2023 for evaluation of abdominal and back pain. Imaging revealed that she likely had a ruptured ovarian cyst and
there was free fluid noted in the pelvis. She was hemodynamically stable at the time and was able to be discharged, however then returned the next day on 05/08/2023 she began feeling worse with increased abdominal pain, nausea, and vomiting with
associated lightheadedness and shortness of breath. She was hypotensive on arrival and was felt to be in septic shock. She was started on dopamine and Levophed. Repeat imaging showed increased abdominal fluid with no free air. Patient was taken
urgently to the OR where she underwent exploratory laparotomy and drainage of intra-abdominal abscess. She also was started on IV antibiotics. Postoperatively she remained intubated until 05/10/2023 when she was extubated, but early in a.m. on
05/11/2023 she had worsening respiratory status and required reintubation due to acute pulmonary edema. Echocardiogram was checked and revealed cardiomyopathy with EF 25% and at least moderate MR. Cardiology consulted for evaluation given
cardiomyopathy. At this time, patient remains intubated and sedated in the ICU.
Progress Note - Elementary Educator
Subjective
Date of Service: May 12, 2023:
Allergies: None
Home meds reviewed:
Current medications: Vasopressin, norepinephrine, MiraLAX, subcu Lovenox, IV clindamycin, ceftriaxone, immune globulin, propofol, fentanyl, acetazolamide IV, furosemide 40 IV twice daily, potassium 40 mill equivalents IV
PMH/PSH/SH/FH: Reviewed
Review of systems: Not obtainable
87/58, pulse 63, rr 20, afebrile, intake and output -1 L, weight is 77 kg, down 0.8 kg
White count 14.7 hemoglobin 8.7, platelets 76, D-dimer 2.0,, sodium is 125, potassium 3.2, troponin is 2.34, proBNP is 14,100, BUN/creatinine are 23 and 1.0, 7.53, pCO2 38, pO2 147, bicarb 32, iron 60%
Chest x-ray diffuse infiltrates, somewhat improved
ECG sinus rhythm, low voltage, prolonged QT, left atrial enlargement
Objective
Labs:
05/12/23 04:29
Labs
Hgb 8.7 g/dL (12.0-16.0) L 05/12/23 04:29
Hct 25.1 % (37.0-47.0) L 05/12/23 04:29
Plt Count 76 10^3/uL (130-400) L 05/12/23 04:29
PT 16.1 Sec (11.4-14.6) H 05/12/23 04:29
INR 1.29 05/12/23 04:29
APTT 40.3 Sec (23.4-35.0) H 05/12/23 04:29
Sodium 125 mmol/L (135-145) L 05/12/23 04:29
Potassium 3.2 mmol/L (3.5-5.1) L 05/12/23 04:29
BUN 23 mg/dl (7-17) H 05/12/23 04:29
Creatinine 1.0 mg/dL (0.6-1.0) 05/12/23 04:29
Glucose 100 mg/dl (70-99) H 05/12/23 04:29
Troponins
05/12/23
08:48
Troponin I 2.340 H*
Vital Signs and I&O:
Vital Signs
Temp Pulse Resp BP Pulse Ox
37.2 C 63 20 87/58 99
05/12/23 08:00 05/12/23 10:00 05/12/23 10:00 05/12/23 08:56 05/12/23 10:21
Vital Signs
Temp Pulse Resp BP Pulse Ox
37.2 C 63 20 87/58 99
05/12/23 08:00 05/12/23 10:00 05/12/23 10:00 05/12/23 08:56 05/12/23 10:21
Intake & Output
05/10/23 05/11/23 05/12/23 05/13/23
07:59 07:59 07:59 07:59
Intake Total 9426.7 / 9627.5 3535.4 / 3577.5 1882.2 / 1974.5 349.9 / 349.9
Output Total 3095 / 3215 5025 / 5145 2605 / 2650 675 / 675
Balance 6331.7 / 6412.5 -1489.6 / -1567.5 -722.8 / -675.5 -325.1 / -325.1
Physical Exam
Physical Exam
Intubated, sedated, head neck exam unremarkable, lungs difficult exam but relatively clear, regular rate and rhythm, MR murmur is not prominent, JVD probably elevated, abdomen benign, extremities without substantial edema, pulses intact, neuro
probably nonfocal
--- NOTE | 2023-05-12 11:13 | PTCARENOTE ---
tube feeds initiated, vaso weaned to off, levophed remains. rest of assessment, cares, positioning as documented. on less diprivan, remains sleepy.
[2023-05-12 11:46] VITALS: BP 83/58
[2023-05-12] MEDS: GAMMAGARD 50 IV (12:09)
--- NOTE | 2023-05-12 12:30 | PTCARENOTE ---
propofol weaned to off for sedation vacation, approx 20 min after, fentanyl decr, turned, eyes open, skin care, nods head, GOETZ, notes uncomfortable and requested pain med, emotional support given, pt calm, nods head as to understanding and very
cooperative. family/ bedside for conversation.
[2023-05-12 13:02] VITALS: BP 82/55
[2023-05-12] MEDS: GAMMAGARD 200 IV (13:03)
[2023-05-12 13:26] VITALS: BP 80/54
--- NOTE | 2023-05-12 13:28 | W.PN.OBG.DWH ---
Today's Communication / Plan
-
critical care mgmt reviewed with Dr. Covington
anticipate wean off ventilator in am
abx as per ID
drain as per surg
Assessment/Plan
-
HD#5, POD #4 exp lap + Strep pyogenes on abx
Subjective Data
-
sedated on ventilator
Objective Data
-
Laboratory Results
05/12/23 04:29
Vital Signs
Temp Pulse Resp BP Pulse Ox
99.0 F 64 20 83/58 98
05/12/23 12:12 05/12/23 12:00 05/12/23 12:00 05/12/23 11:46 05/12/23 12:50
abd decr bs, bandage in place
huey drain in place, cl serous fluid 15-50 cc/h
--- NOTE | 2023-05-12 13:39 | W.PN.HOSP.TC ---
Today's Communication/Plan
-
Continue vent support
Continue vasopressors
Continue IV antibiotics
Complete IVIG.
Diuresis following BMP closely.
Discussed with school bus driver/mechanic
Discussed with nursing and patient family at the bedside.
Total Critical Care Time__55___ minutes. I was immediately available to the patient and staff. I personally examined, reviewed labs, diagnostic images/reports, interpretations, treatment plans, discussed patient care with other providers and
family or caregivers (if patient is unable to make decisions), entered orders as appropriate and documented the medical record.
Assessment / Plan
Assessment / Plan
Impression:
Severe sepsis
Severe septic shock with hypotension not responding to IV fluids requiring multiple vasopressors
Ruptured right tubo-ovarian abscess with peritonitis.
Wound culture isolated group A strep.
Streptococcal toxic shock syndrome
Ventilatory dependent respiratory failure in the settings of severe sepsis.
Cardiomyopathy with LVEF of 25% suspected secondary to sepsis.
Type II TN
Severe metabolic acidosis with elevated lactic acid level.
Acute kidney injury
Hyponatremia suspected secondary to volume overload/vasopressin
Hypokalemia
Hypocalcemia
Acute neutropenia secondary to sepsis.
Acute anemia
Coagulopathy secondary to sepsis.
Abnormal LFTs secondary to shock liver
Conditions prior to admission:
Ovarian cyst status post cystectomy twice most recently 2013.
Anxiety
Plan
Severe sepsis secondary to ruptured right pelvic abscess.
Severe septic shock requiring multiple vasopressors.
Status post exploratory laparotomy with washout on 05/08.
Operative Findings:�
1. Thin purulence throughout abdomen, majority within pelvis, RIGHT ovary and tube inflamed and edematous
2. No inflammation/adhesions of bowel, no perforation, no bilious ascites (all bowel evaluated stomach, duodenum, SB, appendix, and entire colon), leak test of stomach and colon
Right pelvic TARIQ drain in place.
Blood/intraperitoneal cultures pending.
Initiated on empiric antibiotic Zosyn.
Wound culture isolate with group A strep.
Given the above and rapidly developed multiple organ failure group A strep toxic shock most likely.
Antibiotic tailored to ceftriaxone with addition of clindamycin (antitoxin effect)
IVIG therapy initiated on 05/10 for 3 days
Severe septic shock with hypotension requiring pressors.
Lactic acidosis.
Acute kidney injury secondary to above.
Hyponatremia/hypokalemia/hypocalcemia
Responded to alkalinized IV fluids
Lactic acid trended down to normal
Church catheter in place.
VDRF, secondary to severe sepsis and hemodynamic instability.
Weaned off sedation
Extubated on 05/10.
Developed acute pulmonary edema requiring reintubation on 05/11.
Acute pulmonary edema with differential cardiogenic versus noncardiogenic, versus large volume required for sepsis resuscitation.
Echocardiogram 05/11 with dilated LV and ejection fraction 25%. Nonischemic cardiomyopathy suspected secondary to severe sepsis and shock.
Elevated troponin, suspect type II TN. ECG with no evidence of ischemia
Has been off IV fluids
Continue diuresis with IV Lasix. Addition of Diamox given respiratory/metabolic alkalosis.
Acute severe neutropenia transition into leukocytosis
Acute anemia secondary to severe illness, dilutional component, intraoperative loss.
Monitor CBC
Coagulopathy secondary to severe sepsis
Follow PTT/PT/INR/fibrinogen.
Anxiety
Currently off sertraline.
DVT prophylaxis Lovenox.
Full code
Anticipated Discharge: > 48 hours
Subjective/Interval History
-
Date of Service: May 12, 2023
Objective Data
-
Labs:
Laboratory Results
05/12/23 05/12/23 05/12/23
04:29 15:00 16:00
WBC 14.7 H
Hgb 8.7 L
Hct 25.1 L
Plt Count 76 L
PT 16.1 H
INR 1.29
APTT 40.3 H
HCO3 31.8 H Pending
Sodium 125 L Pending
Potassium 3.2 L Pending
Chloride 93 L Pending
Carbon Dioxide 29 Pending
BUN 23 H Pending
Creatinine 1.0 Pending
Glucose 100 H Pending
Calcium 7.2 L Pending
Total Bilirubin 0.5
AST 141 H
ALT 189 H
Alkaline Phosphatase 111
Vital Signs:
Vital Signs
Temp Pulse Resp BP Pulse Ox
99.0 F 66 20 80/54 98
05/12/23 12:12 05/12/23 13:30 05/12/23 13:30 05/12/23 13:26 05/12/23 13:30
I&O
05/11/23 05/12/23 05/13/23
06:59 06:59 06:59
Intake Total 3567.9 / 3610.0 1832.0 / 1924.3 750.7 / 750.7
Output Total 5025 / 5025 2560 / 2605 1310 / 1310
Balance -1457.1 / -1415.0 -728.0 / -680.7 -559.3 / -559.3
Physical Exam
-
General: Well Developed and No Apparent Distress
HEENT: Normocephalic, Atraumatic and Moist Mucous Membranes
Respiratory: Decreased Breath Sounds
Cardiac: Regular Rhythm and S1/S2; Negative Murmur, Rub or Gallop
GI: Soft, Nontender, Nondistended and Normal Bowel Sounds; Negative Organomegaly
Rectal: Deferred by Provider
Musculoskeletal: No Clubbing, No Cyanosis and No Edema
Skin: Negative Rash
Neuro: Sedated and Nonfocal/Grossly Intact
[2023-05-12] MEDS: ROCEPHIN 2000 MG IV (13:58)
[2023-05-12] MEDS: SUBLIMAZE 100 IV (13:58)
[2023-05-12] MEDS: STERILE WATER FOR INJECTION 20 ML IV (13:58)
--- NOTE | 2023-05-12 14:40 | CM ---
CM following re: discharge planning.
Discussed in Rounds, reviewed pt's chart, met with pt and pt's at bedside. Pt's participated in Rounds meeting, Per Rounds meeting pt remains intubated, continue supportive care
Pt lives with in a 2SH and has 3 young children: 7, 5 and 2 year of age.
D/C plan: Continue ongoing care.
CM will follow with discharge plan updates as hospitalization progresses
--- NOTE | 2023-05-12 15:04 | PTCARENOTE ---
IVIG dose nearly complete, tolerated, family bedside, updated. Levophed as noted.
[2023-05-12 15:06] VITALS: BP 80/50
[2023-05-12 15:23] LABS: Blood Urea Nitrogen 21 mg/dl (7-17); Calcium 7.1 mg/dl (8.4-10.2); Carbon Dioxide 27 mmol/L (22-30); Chloride 95 mmol/L (98-107); Estimated Creatinine Clearance 86 ml/min; Glucose 101 mg/dl (70-99); Potassium 3.8 mmol/L (3.5-5.1); Sodium 126 mmol/L (135-145); eGFR > 60.00
[2023-05-12 16:00] VITALS: BP 86/57
[2023-05-12 16:07] LABS: B.E. 4.4 mmol/L; HCO3 28.4 mmol/L (21-28); O2 Saturation % 98.2 % (94-98); PCO2 39 mmHg (32-35); PO2 79 mmHg (83-108); pH 7.47 (7.35-7.45)
[2023-05-12] MEDS: MAGNESIUM SULFATE 102 GRAMS IV (17:02)
[2023-05-12] MEDS: LOVENOX 40 MG SC (17:34)
--- NOTE | 2023-05-12 18:00 | PTCARENOTE ---
tube feed residual checked per surgery this am to consider ileus if not tolerating. aspirate noted, Dr. Crawford aware, orders noted. TF held, aspirate discarded and suction resumed. labs noted. robust response to lasix earlier, Dr Clark
notified, labs pending, sent. family bedside, continual updates. turned and positioned q2h, supported with pillows. art line remains congruent with cuff, see VS. TARIQ drainage recorded.
[2023-05-12 19:01] LABS: Blood Urea Nitrogen 22 mg/dl (7-17); Calcium 7.5 mg/dl (8.4-10.2); Carbon Dioxide 29 mmol/L (22-30); Chloride 98 mmol/L (98-107); Estimated Creatinine Clearance 77 ml/min; Glucose 105 mg/dl (70-99); Potassium 3.2 mmol/L (3.5-5.1); Sodium 131 mmol/L (135-145); eGFR > 60.00
--- NOTE | 2023-05-12 20:00 | PTCARENOTE ---
rec`d pt at 1900 intubated and sedated. grimaces face when turned. + pulses, trace edema. foot pumps on. afebrile. Rt IJ running levo, fent and prop. K being repleted. RT radial arterial line. #8 ETT @23 on left side. A/C settings at 20/450/40/5 of
peep. coarse and diminished. NGT on wall suction. hypoactive BS. round abdomen. midline aquacell with drainage present. original sx dressing. collins in place draining clear, yellow urine. Casimiro drain on rt side of abdomen draining purulent drainage.
restraints for #1. protective foam on sacrum. safe environment maintained. family at bedside.
--- NOTE | 2023-05-13 | PTCARENOTE ---
pt reassessed. no changes in pt assessment. levo titrated as needed. safe environment maintained.
[2023-05-13 00:07] LABS: Blood Urea Nitrogen 20 mg/dl (7-17); Calcium 7.7 mg/dl (8.4-10.2); Carbon Dioxide 29 mmol/L (22-30); Chloride 104 mmol/L (98-107); Estimated Creatinine Clearance 86 ml/min; Glucose 94 mg/dl (70-99); Potassium 3.7 mmol/L (3.5-5.1); Sodium 136 mmol/L (135-145); eGFR > 60.00
[2023-05-13] MEDS: DIAMOX 2.5 MG IV ×2 (00:23→08:33)
[2023-05-13] MEDS: TYLENOL ORAL SOLUTION 650 MG PO ×7 (00:23→23:24)
[2023-05-13] MEDS: DIPRIVAN 100 IV (02:49)
[2023-05-13] MEDS: CLEOCIN 50 IV ×2 (03:52→11:37)
--- NOTE | 2023-05-13 04:00 | PTCARENOTE ---
pt reassessed. no changes in pt assessment. levo titrated per protocol.
[2023-05-13 04:10] LABS: % Basophils 0.6 % (0-2); % Eosinophils 1.3 % (0-6); % Immature Granulocytes 1.1 % (0-0.5); % Lymphocytes 21.7 % (20.5-51.1); % Monocytes 2.7 % (1.7-9.3); % Neutrophils 72.6 % (42.2-75.2); Absolute Basophils 0.1 10^3/uL (0-0.2); Absolute Eosinophils 0.2 10^3/uL (0-0.7); Absolute Immature Granulocytes 0.2 10^3/uL (0-0.05); Absolute Monocytes 0.4 10^3/uL (0.1-0.6); Absolute Neutrophils 10.2 10^3/uL (1.4-6.5); Hematocrit 26.2 % (37.0-47.0); Hemoglobin 9.1 g/dL (12.0-16.0); Mean Corp Hgb Conc. 34.7 g/dL (33.0-37.0); Mean Corpuscular Hgb 28.6 pg (27.0-31.0); Mean Corpuscular Volume 82.4 fL (81.0-99.0); Mean Platelet Volume 11.6 fL (7.4-10.4); Nucleated Red Blood Cells % 0 %; Platelet Count 102 10^3/uL (130-400); Red Blood Cell Count 3.18 10^6/uL (4.20-5.40); Red Cell Dist. Width 13.8 % (11.5-14.5)
[2023-05-13 04:33] LABS: Blood Urea Nitrogen 20 mg/dl (7-17); Calcium 7.9 mg/dl (8.4-10.2); Carbon Dioxide 28 mmol/L (22-30); Chloride 104 mmol/L (98-107); Estimated Creatinine Clearance 97 ml/min; Glucose 94 mg/dl (70-99); Magnesium 1.7 mg/dl (1.6-2.3); Potassium 3.5 mmol/L (3.5-5.1); Sodium 139 mmol/L (135-145); eGFR > 60.00
[2023-05-13] MEDS: KCL 100 IV (05:42)
[2023-05-13] MEDS: MAGNESIUM SULFATE 102 GRAMS IV (05:52)
[2023-05-13] MEDS: LEVOPHED 258 MG IV (06:28)
--- NOTE | 2023-05-13 07:09 | PTCARENOTE ---
Vital signs filed for previous shift from 05/12/23 2030-05/13/23 0700.
[2023-05-13 07:11] VITALS: BMI 26.5
--- NOTE | 2023-05-13 07:42 | W.PN.INTV ---
Today's Communication / Plan
Recommendations
Antibiotics
Wean pressors
FiO2 and PEEP weaned
Attempt spontaneous breathing trial
Follow ABG
Hope to extubate
Assessment
-
37-year-old female with a history of ovarian cyst status post cystectomy's twice with most recent in 2013 presented with abdominal pain, chills, shortness of breath, nausea and CT chest showed free fluid in the dependent pelvis felt to be sequelae
of recent ruptured adnexal cyst, however with abdominal pain and sepsis patient went to the OR 05/08/2023-thin purulence throughout abdomen majority within pelvic, right ovary and tube inflamed and edematous-cement paver consulted for septic
shock/pressor/ventilator/critical care management 05/09/2023.
Assessment
Septic shock unresponsive to fluids requiring triple pressors
Ruptured right tubo-ovarian abscess with peritonitis suspected-clinical picture not entirely consistent, less likely toxic shock syndrome-no rash, etc.
Status post exploratory laparotomy with washout on 05/08/2023
Group A strep toxic shock syndrome
Ventilator dependent respiratory failure-severe acidosis-postoperative
Intubated 05/08/2023
Extubated 05/10/2023
Reintubated for CHF/ARDS 05/11/2023
Extubated
Noncardiogenic pulm edema/ARDS
Metabolic acidosis
Lactic acidosis
FELICITY
Hyponatremia-130
Hypokalemia
Hypocalcemia
Neutropenia secondary to sepsis-WBC 2.0
Anemia-hemoglobin 10.6-normocytic
Mild thrombocytopenia-platelet count 127
Coagulopathy secondary to sepsis
Hyponatremia
Metabolic alkalosis
Cardiomyopathy-EF 25%-suspect related to sepsis
Moderate mitral regurgitation
Conditions present prior to admission:
Ovarian cyst status post laparoscopic drainage and removal twice before.
Anxiety.
Anemia
Plan
Continues to be critically ill, however overall improving, remains on a ventilator, sedated still on pressors
Feel that the decompensation was likely cardiogenic pulmonary edema-there may be a noncardiogenic component as well with leaky capillary/sepsis/ARDS
Steroids not indicated
Ventilator settings reviewed
We will continue to employ lung protective strategy to avoid volutrauma and barotrauma
Goal VT 6 mL/kg-450 mL
Best PEEP-to ventilator between LIP (lower inflection point) and UIP-PEEP currently at 5
Keep plateau pressure less than 30-currently less than 30
Avoid high driving pressure-goal <15-20 (plateau pressure - PEEP)-May increase inspiratory flow rate which would decrease I time on volume-cycled ventilation
Follow PF ratio
Neuromuscular blockade with for the first 48 hours if P/F ratio less than 150 - note recent data ([facility] 08/29/18) did not show 90 day mortality benefit with this tactic
Prone position 16 hours daily if P/F ratio less than 150
Consider recruitment maneuvers - PEEP 30-35 for 45 seconds
Allow for permissive hypercapnia if necessary
Conservative fluid management also recommended
If patient had progressed to severe ARDS there may be a role for pulmonary vascular vasodilators such as nitric oxide or prostacyclin inhaled, pulse steroids, ECMO
Chest x-ray 05/13/2023-stable appearance with significant improvement from 48 hours ago in bilateral pulm infiltrates
Diamox continues for metabolic alkalosis-iatrogenic
Diuresis per nephrology--6.2 L / 24 hours
Follow renal function, electrolytes, intake/output, lower extremity edema and weight
Replace electrolytes as needed
Nephrology following-reviewed with Dr. Clark
Cultures reviewed-Streptococcus pyogenes from wound culture
Chlamydia and Neisseria-negative
MRSA screen-negative
Exploratory laparotomy wound cultures-Streptococcus pyogenes
Blood cultures-no growth
Empiric antibiotics continue
Infectious disease following-correspondence reviewed
IVGG day 3/-finish third dose on 05/12/2023
Follow leukocytosis
Tylenol lryoll-zxl-vlovk for now as patient becomes quite hypotensive with temperature spikes
Surgery following-reviewed with them-Dr. Crawford
[employer] following-reviewed with them
Decrease IV fluids
Bicarb has been discontinued
Diamox added
Boluses as needed
Nephrology evaluation ongoing-correspondence reviewed
DVT prophylaxis-on Lovenox
GI prophylaxis while on ventilator-on pantoprazole
Nutrition when okay by surgery
Early mobilization/bedside range of motion
Dr. Covington reviewed case with sister at the bedside twice and on 05/10/2023-updated current clinical situation, prognosis, treatment plan
Dr. Covington reviewed the case with at the bedside 05/11/[address] Covington reviewed current clinical situation, improvements, hospital course thus far, prognosis, etc. with and sister at the bedside 05/12/[address] Covington reviewed current clinical status with at the bedside 05/13/2023-Hope to extubate
Critical care statement: A total of 42 minutes of critical care time was provided for this patient today. This includes management of unstable vital signs, evaluation of the patient at bedside, reviewing the patient's pertinent medical records
including radiographs, ventilator management, pressor management, fluid resuscitation management, microbiology, laboratory evaluations, and discussion with primary team, consultants, pharmacy, nutrition, physical therapy, case management, charge
nurse, critical care nursing, and respiratory therapy.
Diagnostic data:
Chest x-ray 05/09/2023-tip of ET tube 1.5 cm above smith, mild right perihilar interstitial airways disease which may be pneumonia
Transvaginal ultrasound 05/27-suspicious for uterine adenomyosis, unremarkable appearance of ovaries bilaterally, small volume complex free fluid in the pelvis
CT abdomen and pelvis 05/08/2023-small volume free fluid in the dependent true pelvis may be sequelae of recently ruptured adnexal cyst, unremarkable pelvis
CT abdomen and pelvis 05/08/2023-lack of excretion bilaterally can be seen with septic shock, mild intrahepatic biliary dilation new, moderate abdominal pelvic ascites which is progressed
Subjective Dataa
Subjective Data
Date of Service:
Date of Service: May 13, 2023
Chief Complaint: [employer] Follow Up, Pulmonary Follow Up and Vent Management Follow Up
Subjective:
Diuresed well, FiO2 weaned, PEEP weaned, sedated on the ventilator and review of systems unobtainable
Review of Systems
General: Other (Per HPI)
Objective Data
Data Reviewed
Vital Signs / I&O / Oxygen:
Vital Signs
Temp Pulse Resp BP Pulse Ox
101.1 F H 67 20 91/52 98
05/13/23 07:24 05/12/23 20:15 05/12/23 20:15 05/12/23 18:04 05/13/23 04:47
Intake and Output
05/12/23 05/13/23 05/14/23
06:59 06:59 06:59
Intake Total 1832.0 / 1924.3 1882.1 / 1882.1
Output Total 2560 / 2605 8135 / 8135
Balance -728.0 / -680.7 -6252.9 / -6252.9
SaO2 [CPAP/PSV] 5
SaO2 [A/C] 98
SaO2 98
Physical Exam
General: Respiratory Distress (n) and Comfortable
HEENT: Normocephalic, Anicteric and Moist Mucous Membranes
Cardiovascular: Regular Rhythm
Respiratory: Wheeze (n), Crackles (n), Rhonchi, Non-Labored Respirations, Accessory Resp Muscle Use (n), Stridor (n) and ET Tube
GI: Soft and Distended
Neurology: Awake, Alert, No Motor Deficits and Other (Sedated on a ventilator)
Skin: Warm, Good Color, Cyanosis (n), Jaundice (n) and Rash (n)
Labs/Micro/Reports
Lab Data
05/13/23 03:43
05/13/23 03:43
Laboratory Results
05/12/23
15:56
pH 7.47 H
pCO2 39 H
pO2 79 L
HCO3 28.4 H
O2 Delivery Level
Microbiology
05/08/23 23:35 Blood/Venous Blood Culture - Preliminary
No Growth in 4 days- Final report to follow
05/08/23 23:35 Blood/Venous Blood Culture - Preliminary
No Growth in 4 days- Final report to follow
05/09/23 01:35 Abdomen Anaerobic Culture - Preliminary
NO ANAEROBES ISOLATED
05/09/23 01:35 Abdomen Wound Culture - Preliminary
Streptococcus pyogenes
05/09/23 01:35 Abdomen Gram Stain - Preliminary
05/09/23 04:57 Nose MRSA Screen - Final
No Methicillin Resistant Staphylococcus aureus isolated.
--- NOTE | 2023-05-13 07:48 | PTCARENOTE ---
Rec'd pt at 0700. Pt sedate on Propofol/Fentanyl gtts on vent. Monitor SR. SBP 100's on 8mcg/min Levophed gtts. Right radial a-line in place, zeroed to monitor. Lungs dim, pox 98% on 40$ fio2. ABD round, midline aquacell dressing with old drainage
noted. Right TARIQ intact with serous drainage in bulb. +few hypo BS, [place] sump clamped intermittently after Tylenol given, otherwise placed to LIWS. Church draining yellow urine. Pt's at bedside.
--- NOTE | 2023-05-13 07:58 | W.PN.NEPH.PH ---
Today's Communication / Plan
-
hold lasix
recheck lytes at 1500
maintain pressor support to keep MAP >65
Assessment/Plan
-
Assessment
-hypotension
-FELICITY resolved
-hyponatremia
-hypocalcemia
-metabolic alkalosis
-s/p lactic acidosis
-Strep pyogenes ascites cx
-suspected tuboovarian abscess rupture
-VDRF
Plan
-hyponatremia improved with massive diuresis > 7liters
-hold lasix today
-K repleted
-wean pressors as allowed, keep MAP > 65
-hold further diamox course
-CXR from this am reviewed and noted for persistent infiltrates/edema
-follow BMP
-follow LFTs
-critical care time 32 minutes
Total Time Spent with Patient (in minutes): 32
-
-
Date of Service: May 13, 2023
CC / HPI / ROS
-
Chief Complaint:
FELICITY
History of Present Illness:
FELICITY resolved
intubated this am
remains critically ill in ICU on pressors/vent
Na improved
acidosis improved now alkalemic by ABG
Review of Systems:
intubated sedated
non oliguric
weights down
Labs
-
Labs:
WBC 14.0 10^3/uL (4.8-10.8) H 05/13/23 03:43
RBC 3.18 10^6/uL (4.20-5.40) L 05/13/23 03:43
Hgb 9.1 g/dL (12.0-16.0) L 05/13/23 03:43
Hct 26.2 % (37.0-47.0) L 05/13/23 03:43
Plt Count 102 10^3/uL (130-400) L D 05/13/23 03:43
Sodium 139 mmol/L (135-145) 05/13/23 03:43
Potassium 3.5 mmol/L (3.5-5.1) 05/13/23 03:43
Chloride 104 mmol/L (98-107) 05/13/23 03:43
Carbon Dioxide 28 mmol/L (22-30) 05/13/23 03:43
BUN 20 mg/dl (7-17) H 05/13/23 03:43
Creatinine 0.8 mg/dL (0.6-1.0) 05/13/23 03:43
eGFR > 60.00 05/13/23 03:43
Glucose 94 mg/dl (70-99) 05/13/23 03:43
Calcium 7.9 mg/dl (8.4-10.2) L 05/13/23 03:43
Aud-U-Zapsyjfpbzx Pept 07172 pg/ml 05/12/23 08:48
Albumin 2.0 g/dl (3.5-5.0) L 05/12/23 04:29
Physical Exam
-
Vital Signs:
Vital Signs
Temp Pulse Resp BP Pulse Ox
101.1 F H 67 20 91/52 98
05/13/23 07:24 05/12/23 20:15 05/12/23 20:15 05/12/23 18:04 05/13/23 04:47
Cardiovascular:: Regular rate and rhythm
Respiratory:: Bilateral: Coarse
Lung Excursion:: Normal
Abdomen:: Nontender and Soft
Bowel Sounds:: Decreased
Extremity Edema:: +1: Bilateral:
Church Catheter: Yes
Other Findings::
gen:intubated and sedated
--- NOTE | 2023-05-13 08:22 | W.PN.HOSP.TC ---
Today's Communication/Plan
-
cont Rocephin/Clinda. Now off lasix. Currently on SBT, off sedatives, on levophed 6. Hopefully extubate today.
Assessment / Plan
Assessment / Plan
Gen: NAD, NCAT, well developed/nourished
Eyes: no scleral icterus.
Neck: supple.
CV: RRR, +S1/S2, no m/r/g.
Resp: CTAB anteriorly, no rales, wheezes, or rhonchi.
Abd: +BS, soft, NT, ND
Skin: No rashes.
Neuro: partially opens eyes to voice
Impression:
Severe sepsis
Severe septic shock with hypotension not responding to IV fluids requiring multiple vasopressors
Ruptured right tubo-ovarian abscess with peritonitis.
Wound culture isolated group A strep.
Streptococcal toxic shock syndrome
Ventilatory dependent respiratory failure in the settings of severe sepsis.
Cardiomyopathy with LVEF of 25% suspected secondary to sepsis.
Type II GA
Severe metabolic acidosis with elevated lactic acid level.
Acute kidney injury
Hyponatremia suspected secondary to volume overload/vasopressin
Hypokalemia
Hypocalcemia
Acute neutropenia secondary to sepsis.
Acute anemia
Coagulopathy secondary to sepsis.
Abnormal LFTs secondary to shock liver
Conditions prior to admission:
Ovarian cyst status post cystectomy twice most recently 2013.
Anxiety
Plan
Severe sepsis secondary to ruptured right pelvic abscess.
Severe septic shock requiring multiple vasopressors.
Status post exploratory laparotomy with washout on 05/08.
Operative Findings:�
1. Thin purulence throughout abdomen, majority within pelvis, RIGHT ovary and tube inflamed and edematous
2. No inflammation/adhesions of bowel, no perforation, no bilious ascites (all bowel evaluated stomach, duodenum, SB, appendix, and entire colon), leak test of stomach and colon
Right pelvic TARIQ drain in place.
Blood/intraperitoneal cultures pending.
Initiated on empiric antibiotic Zosyn.
Wound culture isolate with group A strep.
Given the above and rapidly developed multiple organ failure group A strep toxic shock most likely.
Was on Zosyn, now narrowed to ceftriaxone with addition of clindamycin (antitoxin effect)
IVIG therapy initiated on 05/10 for 3 days
Severe septic shock with hypotension requiring pressors.
Lactic acidosis.
Acute kidney injury secondary to above, now resolved
Hyponatremia/hypokalemia/hypocalcemia
Responded to alkalinized IV fluids
Lactic acid trended down to normal
Church catheter in place.
VDRF, secondary to severe sepsis and hemodynamic instability.
Weaned off sedation
Extubated on 05/10.
Developed acute pulmonary edema requiring reintubation on 05/11.
Acute pulmonary edema with differential cardiogenic versus noncardiogenic, versus large volume required for sepsis resuscitation.
Echocardiogram 05/11 with dilated LV and ejection fraction 25%. Nonischemic cardiomyopathy suspected secondary to severe sepsis and shock.
Elevated troponin, suspect type II GA. ECG with no evidence of ischemia
Has been off IV fluids
s/p diuresis with IV Lasix. Addition of Diamox given respiratory/metabolic alkalosis.
Acute severe neutropenia transition into leukocytosis
Acute anemia secondary to severe illness, dilutional component, intraoperative acute blood loss.
Monitor CBC
Coagulopathy secondary to severe sepsis
Follow PTT/PT/INR/fibrinogen.
Anxiety: Home sertraline on hold
FULL/Lovenox.
Total critical care time spent = 35 min
Anticipated Discharge: > 48 hours
Subjective/Interval History
-
Date of Service: May 13, 2023
Objective Data
-
Labs:
Laboratory Results
05/12/23 05/13/23 05/13/23
23:42 03:43 08:00
WBC 14.0 H
Hgb 9.1 L
Hct 26.2 L
Plt Count 102 L D
HCO3 Pending
Sodium 136 139
Potassium 3.7 3.5
Chloride 104 104
Carbon Dioxide 29 28
BUN 20 H 20 H
Creatinine 0.9 0.8
Glucose 94 94
Calcium 7.7 L 7.9 L
Vital Signs:
Vital Signs
Temp Pulse Resp BP Pulse Ox
101.1 F H 66 20 91/52 98
05/13/23 07:24 05/13/23 08:00 05/13/23 08:00 05/12/23 18:04 05/13/23 08:00
I&O
05/12/23 05/13/23 05/14/23
06:59 06:59 06:59
Intake Total 1832.0 / 1924.3 1882.1 / 1882.1
Output Total 2560 / 2605 8135 / 8135
Balance -728.0 / -680.7 -6252.9 / -6252.9
[2023-05-13 08:31] LABS: Phosphorus 2.4 mg/dl (2.5-4.5); Triglycerides 395 mg/dl (10-149)
[2023-05-13 08:44] VITALS: BP 95/70
[2023-05-13] MEDS: MIRALAX 17 GRAMS TUBE (08:47)
[2023-05-13 08:56] LABS: Prealbumin (Transthyretin) 8.1 mg/dl (17.6-36.0)
--- NOTE | 2023-05-13 09:16 | W.PN.ID1 ---
Date of Service
Date of Service: May 13, 2023
Today's Communication
- Continue clinda 900mg IV q8 for 9 doses - will complete today
- Continue ceftriaxone 2g IV q24h (d5 abx)
- Continue to follow closely
Assessment / Plan
# Group A Strep PID/ruptured right tubo-ovarian abscess with peritonitis s/p laparotomy 05/09/23. OR cx: Group A strep
# Group A strep toxic shock syndrome.
# Acute hypoxemic respiratory failure, intubated 05/11/22; pulm edema vs ARDS, improving with diuresis
# Cardiomyopathy EF 25%, likely sepsis induced
- Menstruation preceded TOA. Pt uses vaginal disc receptacle during menstruation past 5 years; she cannot recall leaving it in too long.
Probable source of PID/TSS
Per [employer], no retained foreign body in vagina; if condition does not improve, transfer to tertiary center for hysterectomy.
- Weaning now on 1 pressor
- fever and leukocytosis trending down.
- completed IVIG
- Continue clinda 900mg IV q8 for 9 doses - will complete today
- Continue ceftriaxone 2g IV q24h (d5 abx)
- Continue to follow closely
Chief Complaint
-: Clinical Sepsis and Other (Peritonitis)
Subjective / Review of Systems
febrile again this AM
remains on norepi dose down from peak of 13 to 6, vaso off this am
wbc essentially the same
thrombocytopenia improved, no L shift
d-dimer elevated yesterday
cr 0.8
syphilis serology pending gc/chlamydia - neg
CXR: stable
Vital Signs / Physical Exam
Vital Signs
Vital Signs
Temp Pulse Resp BP Pulse Ox
101.1 F H 66 20 91/52 98
05/13/23 07:24 05/13/23 08:00 05/13/23 08:00 05/12/23 18:04 05/13/23 08:38
Physical Exam
Constitutional: No Acute Distress and Acutely Ill
Cardiovascular: Regular Rate and S1/S2; Negative Murmur or Rub
Pulmonary: Clear and Symmetric; Negative Wheezes or Rales
Gastrointestinal: Soft, Non Tender, Non Distended and Normal Bowel Sounds
Skin: Warm and Dry; Negative Rash or Jaundice
Neurological: Negative Awake (sedated)
Lines: Other (lines: no erythema warmth tenderness or drainage)
Objective Data
Lab Data
Lab Results
05/13/23 03:43
PT 16.1 Sec (11.4-14.6) H 05/12/23 04:29
INR 1.29 05/12/23 04:29
APTT 40.3 Sec (23.4-35.0) H 05/12/23 04:29
Estimated Creat Clear 97 ml/min 05/13/23 03:43
Lactic Acid 2.2 mmol/L (0.7-2.0) H 05/12/23 04:29
Total Bilirubin 0.5 mg/dl (0.2-1.3) 05/12/23 04:29
AST 141 U/L (14-36) H 05/12/23 04:29
ALT 189 U/L (0-35) H 05/12/23 04:29
Alkaline Phosphatase 111 U/L (38-126) 05/12/23 04:29
Most recent labs reviewed.
Micro Results:
05/08/23 23:35 Blood Culture - Preliminary
Blood/Venous No Growth in 4 days- Final report to follow
05/08/23 23:35 Blood Culture - Preliminary
Blood/Venous No Growth in 4 days- Final report to follow
05/09/23 01:35 Anaerobic Culture - Preliminary
Abdomen NO ANAEROBES ISOLATED
05/09/23 01:35 Wound Culture - Preliminary
Abdomen Streptococcus pyogenes
Gram Stain - Preliminary
05/09/23 04:57 MRSA Screen - Final
Nose No Methicillin Resistant Staphylococcus aureus isolated.
05/09/23 11:11 Chlamydia trachomatis (PCR) - Final
Urine Neisseria gonorrhoeae (PCR) - Final
05/07/23 Pelvic/transvaginal US:Findings suspicious for uterine adenomyosis. Unremarkable sonographic appearance of the ovaries bilaterally with bilateral ovarian blood flow identified. Small volume complex free fluid in the pelvis which may be the
sequela of recently ruptured hemorrhagic cyst.
05/08/23 CT a/p with IV contrast: Lack of renal excretion bilaterally. This can be seen with septic shock. Reported hypotension. Mild intrahepatic biliary dilatation. New. This would better be evaluated� by abdominal ultrasound. Moderate
abdominopelvic ascites. Progressed. Ruptured ovarian cyst not excluded. Nonvisualization of the appendix. Acute appendicitis cannot be excluded.
05/10/23 CXR: Findings suggesting severe pulmonary edema. Bilateral perihilar and lower lobe pneumonia cannot be excluded. Significantly progressed.
05/11/23 CXR: There is a new endotracheal tube with tip in the trachea approximately 1.5 cm above the smith. Marked widespread bilateral central parenchymal opacification is again seen without significant change.
05/12/23 CXR:�Patchy foci of airspace consolidation bilaterally. Improved aeration compared to prior study. Differential diagnosis includes pulmonary edema, multifocal pneumonia, and/or ARDS. Speed of improvement is most suggestive of improved
pulmonary edema.
[2023-05-13 09:40] VITALS: BP_SYST 95
--- NOTE | 2023-05-13 10:20 | W.PN.CARDCBS ---
Today's Communication / Plan
-
Continued improvement
Hopefully to extubate today
Wean norepinephrine
Repeat echo Monday
Impression / Plan
-
PCP: Nisha Vann NP
[facility] [place]: None, initially seen by Dr. ROCHELLE Montesinos
Impression:
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
MSOF
Acute HFrEF
Type II myocardial infarction, troponin 2.3
Ruptured R tubo-ovarian abscess w/ peritonitis
Ventilator dependent respiratory failure
Acute pulmonary edema
Nonischemic cardiomyopathy, EF 25% likely related to TSS
Moderate mitral regurgitation
FELICITY, improved
Acute hepatic injury
Ovarian cysts s/p cystectomy x2
Anxiety
Echo 05/11/2023: EF 25%, mildly dilated LV with global hypokinesis, at least moderate MR, PASP 32 mmHg
Plan:
VDRF: Currently on weaning trial, hopefully to extubate today. Chest x-ray still with infiltrate, suspect component of ARDS
Acute HFrEF: Improved, though still with pulmonary infiltrates. Intake and output markedly negative,IV furosemide currently stopped, will observe. Suspect EF has improved, will repeat echo on Monday
Mitral regurgitation: Suspect improved, await echo on Monday
Hyponatremia: Resolved with discontinuation of vasopressin
Toxic shock syndrome/suspected ruptured tubo-ovarian abscess with strep pyogenes: Improving hemodynamic picture. Multisystem organ failure resolving, hopefully to discontinue norepinephrine later today
Type II myocardial infarction: Continue supportive care
Anemia/thrombocytopenia: Stable/improving
Critical care time: 35 minutes
HPI: Glenda is a 37-year-old female with past medical history of ovarian cysts and anxiety who presented to ER initially on 05/07/2023 for evaluation of abdominal and back pain. Imaging revealed that she likely had a ruptured ovarian cyst and
there was free fluid noted in the pelvis. She was hemodynamically stable at the time and was able to be discharged, however then returned the next day on 05/08/2023 she began feeling worse with increased abdominal pain, nausea, and vomiting with
associated lightheadedness and shortness of breath. She was hypotensive on arrival and was felt to be in septic shock. She was started on dopamine and Levophed. Repeat imaging showed increased abdominal fluid with no free air. Patient was taken
urgently to the OR where she underwent exploratory laparotomy and drainage of intra-abdominal abscess. She also was started on IV antibiotics. Postoperatively she remained intubated until 05/10/2023 when she was extubated, but early in a.m. on
05/11/2023 she had worsening respiratory status and required reintubation due to acute pulmonary edema. Echocardiogram was checked and revealed cardiomyopathy with EF 25% and at least moderate MR. Cardiology consulted for evaluation given
cardiomyopathy. At this time, patient remains intubated and sedated in the ICU.
Progress Note - [facility] [place]
Subjective
Date of Service: May 13, 2023:
Allergies: None
Outpatient meds: Sertraline
Current meds MiraLAX, subcu Lovenox, norepinephrine, clindamycin, ceftriaxone, propofol, fentanyl
PMH/PSH/SH/FH: Reviewed
White count 14, stable, hemoglobin 9.1, platelets 102, had been 76, ABG pending, BUN and creatinine 20 and 0.8, potassium 3.5
Chest x-ray cardiomegaly, bilateral infiltrates, unchanged from yesterday
Objective
Labs:
05/13/23 03:43
Labs
Hgb 9.1 g/dL (12.0-16.0) L 05/13/23 03:43
Hct 26.2 % (37.0-47.0) L 05/13/23 03:43
Plt Count 102 10^3/uL (130-400) L D 05/13/23 03:43
PT 16.1 Sec (11.4-14.6) H 05/12/23 04:29
INR 1.29 05/12/23 04:29
APTT 40.3 Sec (23.4-35.0) H 05/12/23 04:29
Sodium 139 mmol/L (135-145) 05/13/23 03:43
Potassium 3.5 mmol/L (3.5-5.1) 05/13/23 03:43
BUN 20 mg/dl (7-17) H 05/13/23 03:43
Creatinine 0.8 mg/dL (0.6-1.0) 05/13/23 03:43
Glucose 94 mg/dl (70-99) 05/13/23 03:43
Troponins
05/12/23
08:48
Troponin I 2.340 H*
Vital Signs and I&O:
Vital Signs
Temp Pulse Resp BP Pulse Ox
38.4 C H 74 28 91/52 97
05/13/23 07:24 05/13/23 09:40 05/13/23 09:40 05/12/23 18:04 05/13/23 09:40
Vital Signs
Temp Pulse Resp BP Pulse Ox
38.4 C H 74 28 91/52 97
05/13/23 07:24 05/13/23 09:40 05/13/23 09:40 05/12/23 18:04 05/13/23 09:40
Intake & Output
05/11/23 05/12/23 05/13/23 05/14/23
07:59 07:59 07:59 07:59
Intake Total 3535.4 / 3577.5 1882.2 / 1974.5 1814.0 / 1838.2 24..2
Output Total 5025 / 5145 2605 / 2650 8090 / 8090 325 / 325
Balance -1489.6 / -1567.5 -722.8 / -675.5 -6276.0 / -6251.8 -300.8 / -300.8
Physical Exam
Physical Exam
91/52, pulse 70s, 38.4, respiratory 28, saturations 97%, weight is 69.9 kg, if accurate down 7.1 kg, currently on spontaneous breathing trial with pressure support, awake, nods, communicative, head neck exam unremarkable, right IJ, still intubated,
lungs diminished in bases, cardiac no obvious mitral regurgitation murmur JVD okay, abdomen okay, extremities without clubbing cyanosis or edema, neuro nonfocal
[2023-05-13 11:48] LABS: B.E. 2.4 mmol/L; HCO3 27.8 mmol/L (21-28); O2 Saturation % 99.4 % (94-98); PCO2 46 mmHg (32-35); PO2 104 mmHg (83-108); pH 7.39 (7.35-7.45)
--- NOTE | 2023-05-13 12:15 | W.PN.UPDATE ---
Update Note
Progress Note Update
Nothing to add from GS point of view for now. Yesterday she did not tolerate TF. Plan is to initiate TPN, most likely tomorrow. Prolonged ileus is expected given both intra-abdominal infection and hospital course since admission. Appropriate labs
are ordered.
--- NOTE | 2023-05-13 12:24 | W.PN.OBG.DWH ---
Today's Communication / Plan
-
Continue with antibiotics
Follow with you
Assessment/Plan
-
S/P Exploratory laparotomy for possible ruptured TOA, strep A TSS-Per consultants' notes, improvement noted. Nothing to add at this time. Still recommend transfer to tertiary care in event further DIRECTOR BUSINESS INTELLIGENCE surgery becomes necessary.
Subjective Data
-
Patient intubated, drowsy. Extubation to occur shortly. Reviewed consultants' notes
Lengthy discussion with patient's about DIRECTOR BUSINESS INTELLIGENCE follow up
Objective Data
-
Laboratory Results
05/13/23 03:43
Vital Signs
Temp Pulse Resp BP Pulse Ox
101.1 F H 66 20 95/70 96
05/13/23 07:24 05/13/23 10:30 05/13/23 10:30 05/13/23 08:44 05/13/23 11:37
abdomen-soft, nontender, nondistended, decreased bowel sounds, (but improved from my last exam several days ago), surgical dressing intact
Extremities-no calf pain
--- NOTE | 2023-05-13 12:42 | PTCARENOTE ---
SBT for approx 2hrs. ABG drawn and sent, Dr. Covington notified of results. 1225-pt extubated to 6L midflow. Pt remains drowsy, more arousable with interacting with pt at bedside. Nods head appropriately to questions. Incont for small
green/brown stool. Pericare performed. Pt grimacing with repositioning. Nodded 'yes' to having abdominal pain with turning, comfortable at rest. Family at bedside at this time.
[2023-05-13] MEDS: ROCEPHIN 2000 MG IV (13:50)
[2023-05-13] MEDS: STERILE WATER FOR INJECTION 20 ML IV (13:50)
[2023-05-13 15:50] LABS: Carbon Dioxide 26 mmol/L (22-30); Chloride 111 mmol/L (98-107); Potassium 3.8 mmol/L (3.5-5.1); Sodium 138 mmol/L (135-145)
--- NOTE | 2023-05-13 16:09 | CHAP ---
Glenda was sleeping, with , Leonardo at her side. He was encouraged by her progress, saying 'she's a fighter.' Lots of support from family and friends. Leonardo welcomed prayer, and Glenda opened her eyes briefly and nodded. We offered Nondenominational
prayers and asked God's blessings for Glenda, her dear family, and the med staff.
[2023-05-13] MEDS: LOVENOX 40 MG SC (17:18)
--- NOTE | 2023-05-13 17:46 | PTCARENOTE ---
Pt incont for large green/brown liquid stool. Pericare performed/linens changed. Pt with gen weakness, but attempts to help with repositioning. Splinting pillow utilized with turns. remains at bedside.
--- NOTE | 2023-05-13 20:00 | PTCARENOTE ---
rec`d pt at 1900 drowsy in bed. arousable to verbal stimuli. pt nods heads appropriately to questions. + pulses no edema, afebrile. RT radial antonio. rt IJ 3 luman. 4L NC satting at 98%. BM at 1900. NGT on LIWS. collins in place draining clear yellow
urine. TARIQ drain draining small amount of serous fluid. Midline Aquacel with drainage. original sx dressing. foot pumps. family at bedside. safe environment maintained.
--- NOTE | 2023-05-14 00:15 | PTCARENOTE ---
pt restarted back on levo. MAP now 69. no other changes to pt assessment. safe environment maintained.
[2023-05-14] MEDS: DILAUDID 0.5 MG IV (03:02)
--- NOTE | 2023-05-14 04:00 | PTCARENOTE ---
pt reassessed. no changes in pt assessment. levo titrated per protocol. safe environment maintained.
[2023-05-14 04:10] LABS: Blood Urea Nitrogen 23 mg/dl (7-17); Calcium 7.5 mg/dl (8.4-10.2); Carbon Dioxide 23 mmol/L (22-30); Chloride 110 mmol/L (98-107); Estimated Creatinine Clearance 111 ml/min; Glucose 103 mg/dl (70-99); Magnesium 1.7 mg/dl (1.6-2.3); Potassium 3.7 mmol/L (3.5-5.1); Sodium 140 mmol/L (135-145); eGFR > 60.00
[2023-05-14 04:17] LABS: Triglycerides 424 mg/dl (10-149)
[2023-05-14 04:32] VITALS: BMI 25.7
[2023-05-14] MEDS: TYLENOL ORAL SOLUTION PO (04:59)
[2023-05-14] MEDS: MAGNESIUM SULFATE 100 IV (06:23)
[2023-05-14] MEDS: KCL 160 MEQ IV (06:23)
--- NOTE | 2023-05-14 07:31 | W.PN.INTV ---
Today's Communication / Plan
Recommendations
Tolerated extubation
Wean FiO2
Toradol for pain
Incentive spirometry, Acapella
Physical and Occupational Therapy
Nutrition
Wean pressors
Assessment
-
37-year-old female with a history of ovarian cyst status post cystectomy's twice with most recent in 2013 presented with abdominal pain, chills, shortness of breath, nausea and CT chest showed free fluid in the dependent pelvis felt to be sequelae
of recent ruptured adnexal cyst, however with abdominal pain and sepsis patient went to the OR 05/08/2023-thin purulence throughout abdomen majority within pelvic, right ovary and tube inflamed and edematous-mild disabilities teacher consulted for septic
shock/pressor/ventilator/critical care management 05/09/2023.
Assessment
Septic shock unresponsive to fluids requiring triple pressors
Ruptured right tubo-ovarian abscess with peritonitis suspected-clinical picture not entirely consistent, less likely toxic shock syndrome-no rash, etc.
Status post exploratory laparotomy with washout on 05/08/2023
Group A strep toxic shock syndrome
Ventilator dependent respiratory failure-severe acidosis-postoperative
Intubated 05/08/2023
Extubated 05/10/2023
Reintubated for CHF/ARDS 05/11/2023
Extubated 05/13/2023
Noncardiogenic pulm edema/ARDS
Metabolic acidosis
Lactic acidosis
FELICITY
Hyponatremia-130
Hypokalemia
Hypocalcemia
Neutropenia secondary to sepsis-WBC 2.0
Anemia-hemoglobin 10.6-normocytic
Mild thrombocytopenia-platelet count 127
Coagulopathy secondary to sepsis
Hyponatremia
Metabolic alkalosis
Cardiomyopathy-EF 25%-suspect related to sepsis
Moderate mitral regurgitation
Conditions present prior to admission:
Ovarian cyst status post laparoscopic drainage and removal twice before.
Anxiety.
Anemia
Plan
Critically ill on pressors
Landscape Supervisor feels the postoperative decompensation after initial extubation was likely cardiogenic pulmonary edema-there may be a noncardiogenic component as well with leaky capillary/sepsis/ARDS
Steroids were not indicated and not indicated at this time
Conservative fluid management also recommended
If patient had progressed to severe ARDS there may be a role for pulmonary vascular vasodilators such as nitric oxide or prostacyclin inhaled, pulse steroids, ECMO
Chest x-ray 05/13/2023-stable appearance with significant improvement from 48 hours ago in bilateral pulm infiltrates
Chest x-ray 05/14/2023-still has significant bilateral pulmonary infiltrates/consolidations-no significant change
Incentive spirometry encouraged
Acapella
Status post a course of Diamox for iatrogenic metabolic alkalosis-significant bicarb resuscitation when patient was severely acidotic
Diuresis per nephrology
Monitor renal function, electrolytes, intake/output, lower extremity edema and weight
Continue to replace electrolytes as needed
Nephrology following-reviewed with Dr. Clark
Cultures reviewed-Streptococcus pyogenes from wound culture
Chlamydia and Neisseria-negative
MRSA screen-negative
Exploratory laparotomy wound cultures-Streptococcus pyogenes
Blood cultures-no growth
Empiric antibiotics continue
Infectious disease following-correspondence reviewed
Finished IVGG 3-day course-finish third dose on 05/12/2023-for possible toxic shock
Monitor leukocytosis
Tylenol [id number] for now as patient becomes quite hypotensive with temperature spikes
Surgery following-correspondence reviewed
Nutrition-begin clear liquids
Consider TPN
FARE ENFORCEMENT OFFICER following-reviewed with them-reviewed case with them
Try Toradol for pain-patient quite sedated on opiates
Decrease IV fluids
Bicarb has been discontinued
Finished a course of Diamox
Nephrology evaluation ongoing-correspondence reviewed
DVT prophylaxis-on Lovenox
GI prophylaxis while on ventilator-on pantoprazole
Nutrition when okay by surgery
Early mobilization/bedside range of motion/physical and Occupational Therapy will be consulted 05/14/[address]
Dr[address] Covington reviewed case with sister at the bedside twice and on 05/10/2023-updated current clinical situation, prognosis, treatment plan
Dr. Covington reviewed the case with at the bedside 05/11/[address]
Dr. Covington reviewed current clinical situation, improvements, hospital course thus far, prognosis, etc. with and sister at the bedside 05/12/[address]
Dr. Covington reviewed current clinical status with at the bedside 05/13/2023-Hope to extubate
Dr. Covington reviewed current clinical status again with at bedside 05/14/2023
Critical care statement: A total of 40 minutes of critical care time was provided for this patient today. This includes management of unstable vital signs, evaluation of the patient at bedside, reviewing the patient's pertinent medical records
including radiographs, pressor management, sedation and analgesia management, fluid resuscitation management, microbiology, laboratory evaluations, and discussion with primary team, consultants, pharmacy, nutrition, physical therapy, case
management, charge nurse, critical care nursing, and respiratory therapy.
Diagnostic data:
Chest x-ray 05/09/2023-tip of ET tube 1.5 cm above smith, mild right perihilar interstitial airways disease which may be pneumonia
Transvaginal ultrasound 05/27-suspicious for uterine adenomyosis, unremarkable appearance of ovaries bilaterally, small volume complex free fluid in the pelvis
CT abdomen and pelvis 05/08/2023-small volume free fluid in the dependent true pelvis may be sequelae of recently ruptured adnexal cyst, unremarkable pelvis
CT abdomen and pelvis 05/08/2023-lack of excretion bilaterally can be seen with septic shock, mild intrahepatic biliary dilation new, moderate abdominal pelvic ascites which is progressed
Subjective Dataa
Subjective Data
Date of Service:
Date of Service: May 14, 2023
Chief Complaint: Landscape Supervisor Follow Up, Pulmonary Follow Up and Vent Management Follow Up
Subjective:
Tolerated extubation, more awake, would like to avoid sedating pain medications, some mild shortness of breath, not taking deep breaths because of abdominal pain,
Review of Systems
General: Other (Per HPI)
Objective Data
Data Reviewed
Vital Signs / I&O / Oxygen:
Vital Signs
Temp Pulse Resp BP Pulse Ox
97.9 F 70 37 95/70 98
05/13/23 23:42 05/14/23 06:45 05/14/23 06:45 05/13/23 08:44 05/14/23 06:45
Intake and Output
05/13/23 05/14/23 05/15/23
06:59 06:59 06:59
Intake Total 1882.1 / 1906.3 110.3 / 110.3
Output Total 8135 / 8135 1495 / 1495
Balance -6252.9 / -6228.7 -1384.7 / -1384.7
SaO2 [CPAP/PSV] 96
SaO2 [A/C] 98
SaO2 98
Physical Exam
General: Respiratory Distress (n) and Comfortable
HEENT: Normocephalic, Anicteric and Moist Mucous Membranes
Cardiovascular: Regular Rhythm
Respiratory: Wheeze (n), Crackles (n), Rhonchi, Non-Labored Respirations, Accessory Resp Muscle Use (n) and Stridor (n)
GI: Soft and Distended
Neurology: Awake, Alert, No Motor Deficits and Other (Sedated on a ventilator)
Skin: Warm, Good Color, Cyanosis (n), Jaundice (n) and Rash (n)
Labs/Micro/Reports
Lab Data
05/13/23 03:43
05/14/23 03:31
Laboratory Results
05/13/23
11:41
pH 7.39
pCO2 46 H
pO2 104
HCO3 27.8
O2 Delivery Level
Microbiology
05/08/23 23:35 Blood/Venous Blood Culture - Final
No Growth - Final Report
05/08/23 23:35 Blood/Venous Blood Culture - Final
No Growth - Final Report
05/09/23 01:35 Abdomen Anaerobic Culture - Preliminary
NO ANAEROBES ISOLATED
[2023-05-14] MEDS: TYLENOL ORAL SOLUTION 650 MG PO (07:55)
[2023-05-14] MEDS: MIRALAX TUBE (08:08)
--- NOTE | 2023-05-14 09:09 | W.PN.HOSP.TC ---
Today's Communication/Plan
-
see bold
Assessment / Plan
Assessment / Plan
Gen: pt with rapid, shallow breathing, NCAT, well developed/nourished
Eyes: no scleral icterus.
Neck: supple.
CV: RRR, +S1/S2, no m/r/g.
Resp: rapid, shallow breathing, CTAB anteriorly, no rales, wheezes, or rhonchi.
Abd: +BS, soft, NT to light palpation, ND
Skin: No rashes.
Neuro: partially opens eyes to voice, CN2-12 intact
Impression:
Severe sepsis
Severe septic shock with hypotension not responding to IV fluids requiring multiple vasopressors
Ruptured right tubo-ovarian abscess with peritonitis.
Wound culture isolated group A strep.
Streptococcal toxic shock syndrome
Ventilatory dependent respiratory failure in the settings of severe sepsis.
Cardiomyopathy with LVEF of 25% suspected secondary to sepsis.
Type II MN
Severe metabolic acidosis with elevated lactic acid level.
Acute kidney injury
Hyponatremia suspected secondary to volume overload/vasopressin
Hypokalemia
Hypocalcemia
Acute neutropenia secondary to sepsis.
Acute anemia
Coagulopathy secondary to sepsis.
Abnormal LFTs secondary to shock liver
Conditions prior to admission:
Ovarian cyst status post cystectomy twice most recently 2013.
Anxiety
Plan
Severe sepsis secondary to ruptured right pelvic abscess.
Severe septic shock requiring multiple vasopressors.
Status post exploratory laparotomy with washout on 05/08.
Operative Findings:�
1. Thin purulence throughout abdomen, majority within pelvis, RIGHT ovary and tube inflamed and edematous
2. No inflammation/adhesions of bowel, no perforation, no bilious ascites (all bowel evaluated stomach, duodenum, SB, appendix, and entire colon), leak test of stomach and colon
Right pelvic TARIQ drain in place.
Blood/intraperitoneal cultures pending.
Initiated on empiric antibiotic Zosyn.
Wound culture isolate with group A strep.
Given the above and rapidly developed multiple organ failure group A strep toxic shock most likely.
Was on Zosyn, now narrowed to ceftriaxone (was on clindamycin for antitoxin effect, now stopped)
IVIG therapy initiated on 05/10 for 3 days
Severe septic shock with hypotension requiring pressors.
Lactic acidosis.
Acute kidney injury secondary to above, now resolved
Hyponatremia/hypokalemia/hypocalcemia
Responded to alkalinized IV fluids
Lactic acid trended down to normal
Church catheter in place.
VDRF, secondary to severe sepsis and hemodynamic instability.
Weaned off sedation
Extubated on 05/10.
Developed acute pulmonary edema requiring reintubation on 05/11.
-Extubated 05/13/23
Acute pulmonary edema with differential cardiogenic versus noncardiogenic, versus large volume required for sepsis resuscitation.
Echocardiogram 05/11 with dilated LV and ejection fraction 25%. Nonischemic cardiomyopathy suspected secondary to severe sepsis and shock.
Elevated troponin, suspect type II MN. ECG with no evidence of ischemia
Has been off IV fluids
s/p diuresis with IV Lasix. Received Diamox given respiratory/metabolic alkalosis.
Repeat Echo on 05/16/23
Acute severe neutropenia transition into leukocytosis
Acute anemia secondary to severe illness, dilutional component, intraoperative acute blood loss.
Monitor CBC
To consider TPN, will defer to surgery.
Start PRN Toradol for abd pain (Cr 0.5) which will help allow pt to increase her tidal volume.
Coagulopathy secondary to severe sepsis
Follow PTT/PT/INR/fibrinogen.
Anxiety: Home sertraline on hold
FULL/Lovenox.
Discussed with Dr. Covington.
Total critical care time spent = 32 min
Anticipated Discharge: > 48 hours
Subjective/Interval History
-
Date of Service: May 14, 2023
Patient lethargic but opens eyes somewhat to voice. Endorses abdominal pain.
Objective Data
-
Labs:
Laboratory Results
05/14/23
03:31
Sodium 140
Potassium 3.7
Chloride 110 H
Carbon Dioxide 23
BUN 23 H
Creatinine 0.5 L
Glucose 103 H
Calcium 7.5 L
Vital Signs:
Vital Signs
Temp Pulse Resp BP Pulse Ox
99.2 F 70 37 95/70 98
05/14/23 07:30 05/14/23 06:45 05/14/23 06:45 05/13/23 08:44 05/14/23 06:45
I&O
05/13/23 05/14/23 05/15/23
06:59 06:59 06:59
Intake Total 1882.1 / 1906.3 110.3 / 110.3
Output Total 8135 / 8135 1495 / 1495
Balance -6252.9 / -6228.7 -1384.7 / -1384.7
--- NOTE | 2023-05-14 09:19 | W.PN.NEPH.PH ---
Today's Communication / Plan
-
20mg IV lasix
sign off
Assessment/Plan
-
Assessment
-hypotension
-FELICITY resolved
-hyponatremia
-hypocalcemia
-metabolic alkalosis
-s/p lactic acidosis
-Strep pyogenes ascites cx
-suspected tuboovarian abscess rupture
-VDRF
Plan
-hyponatremia resolved
-FELICITY resolved and now nonoliguric
-weights down to admission weight
-will provide 20mg IV lasix today
-wean pressors as allowed, keep MAP > 65
-CXR from this am reviewed and noted for persistent infiltrates/edema
-follow BMP
-we will sign off
-
-
Date of Service: May 14, 2023
CC / HPI / ROS
-
Chief Complaint:
FELICITY
History of Present Illness:
FELICITY resolved
now extubated
remains critically ill in ICU on pressors/vent
Na improved
Review of Systems:
extubated
ngt
non oliguric via collins
weights down
Labs
-
Labs:
WBC 14.0 10^3/uL (4.8-10.8) H 05/13/23 03:43
RBC 3.18 10^6/uL (4.20-5.40) L 05/13/23 03:43
Hgb 9.1 g/dL (12.0-16.0) L 05/13/23 03:43
Hct 26.2 % (37.0-47.0) L 05/13/23 03:43
Plt Count 102 10^3/uL (130-400) L D 05/13/23 03:43
Sodium 140 mmol/L (135-145) 05/14/23 03:31
Potassium 3.7 mmol/L (3.5-5.1) 05/14/23 03:31
Chloride 110 mmol/L (98-107) H 05/14/23 03:31
Carbon Dioxide 23 mmol/L (22-30) 05/14/23 03:31
BUN 23 mg/dl (7-17) H 05/14/23 03:31
Creatinine 0.5 mg/dL (0.6-1.0) L 05/14/23 03:31
eGFR > 60.00 05/14/23 03:31
Glucose 103 mg/dl (70-99) H 05/14/23 03:31
Calcium 7.5 mg/dl (8.4-10.2) L 05/14/23 03:31
Phosphorus 2.4 mg/dl (2.5-4.5) L 05/13/23 03:43
Iaq-Q-Cqkulayysmg Pept 06926 pg/ml 05/12/23 08:48
Albumin 2.0 g/dl (3.5-5.0) L 05/12/23 04:29
Physical Exam
-
Vital Signs:
Vital Signs
Temp Pulse Resp BP Pulse Ox
99.2 F 70 37 95/70 98
05/14/23 07:30 05/14/23 06:45 05/14/23 06:45 05/13/23 08:44 05/14/23 06:45
Cardiovascular:: Regular rate and rhythm
Respiratory:: Bilateral: Coarse
Lung Excursion:: Normal
Abdomen:: Distended and Tender
Bowel Sounds:: Decreased
Extremity Edema:: None: Bilateral:
Collins Catheter: Yes
--- NOTE | 2023-05-14 09:30 | PTCARENOTE ---
Rec'd pt at 0700. Pt AAOx3, follows commands, GOETZ with gen weakness. Monitor SR. SBP 100-110's via right radial a-line. Remains off of Levophed gtts. Lungs dim, pox 98%, lowered to 2LNC. +BS, abd round +tenderness on palpation. Midline aquacell
dressing with old drainage noted. NGT to LIWS. Right TARIQ drain with serous drainage in bulb. Church draining rubi urine. Pt able to lift hips up to get on and off of bedpan, liquid green/brown stool. Splinting pillow utilized with repositioning. Pt
having pain with activity, but pt does not want Dilaudid d/t it 'making her loopy'. Discussed possibility of using Ultram with [employer] Export Logistics Manager, ok per MD if cleared by surgery to use. Message sent to surgery to clear with them via TT, awaiting response.
[2023-05-14] MEDS: LASIX 20 MG IV (09:55)
--- NOTE | 2023-05-14 10:23 | W.PN.ID1 ---
Date of Service
Date of Service: May 14, 2023
Today's Communication
- Continue ceftriaxone 2g IV q24h (d6 abx)
Assessment / Plan
# Group A Strep PID/ruptured right tubo-ovarian abscess with peritonitis s/p laparotomy 05/09/23. OR cx: Group A strep
# Group A strep toxic shock syndrome.
# Acute hypoxemic respiratory failure, intubated 05/11/22; pulm edema vs ARDS, improving with diuresis
# Cardiomyopathy EF 25%, likely sepsis induced
- Menstruation preceded TOA. Pt uses vaginal disc receptacle during menstruation past 5 years; she cannot recall leaving it in too long.
Probable source of PID/TSS
Per [facility], no retained foreign body in vagina
- weaned off of pressors and extubated, fever resolved and and leukocytosis trending down.
- completed IVIG and 3 day course of clindamycin
- Continue ceftriaxone 2g IV q24h (d6 abx)
- Continue to follow closely
Chief Complaint
-: Other (Peritonitis)
Subjective / Review of Systems
no further fevers
norepi off - now off of pressors - bp soft
extubated yesterday
slight improvement in leukocytosis and plt
L shift resolved
cr stable
CXR this AM: Progression of bilateral opacification some differential diagnostic possibilities include pneumonia, atypical pulmonary edema or less likely ARDS.
Vital Signs / Physical Exam
Vital Signs
Vital Signs
Temp Pulse Resp BP Pulse Ox
99.2 F 70 37 95/70 98
05/14/23 07:30 05/14/23 06:45 05/14/23 06:45 05/13/23 08:44 05/14/23 06:45
Physical Exam
Constitutional: No Acute Distress
Cardiovascular: Regular Rate and S1/S2; Negative Murmur or Rub
Pulmonary: Clear and Symmetric; Negative Wheezes or Rales
Gastrointestinal: Soft, Non Tender, Non Distended and Normal Bowel Sounds
Skin: Warm and Dry; Negative Rash or Jaundice
Objective Data
Lab Data
Lab Results
05/13/23 03:43
05/14/23 03:31
PT 16.1 Sec (11.4-14.6) H 05/12/23 04:29
INR 1.29 05/12/23 04:29
APTT 40.3 Sec (23.4-35.0) H 05/12/23 04:29
Estimated Creat Clear 111 ml/min 05/14/23 03:31
Lactic Acid 2.2 mmol/L (0.7-2.0) H 05/12/23 04:29
Total Bilirubin 0.5 mg/dl (0.2-1.3) 05/12/23 04:29
AST 141 U/L (14-36) H 05/12/23 04:29
ALT 189 U/L (0-35) H 05/12/23 04:29
Alkaline Phosphatase 111 U/L (38-126) 05/12/23 04:29
Most recent labs reviewed.
Micro Results:
05/09/23 01:35 Wound Culture - Final
Abdomen Streptococcus pyogenes
Gram Stain - Final
05/09/23 01:35 Anaerobic Culture - Final
Abdomen NO ANAEROBES ISOLATED
05/08/23 23:35 Blood Culture - Final
Blood/Venous No Growth - Final Report
05/08/23 23:35 Blood Culture - Final
Blood/Venous No Growth - Final Report
05/09/23 04:57 MRSA Screen - Final
Nose No Methicillin Resistant Staphylococcus aureus isolated.
05/09/23 11:11 Chlamydia trachomatis (PCR) - Final
Urine Neisseria gonorrhoeae (PCR) - Final
05/07/23 Pelvic/transvaginal US:Findings suspicious for uterine adenomyosis. Unremarkable sonographic appearance of the ovaries bilaterally with bilateral ovarian blood flow identified. Small volume complex free fluid in the pelvis which may be the
sequela of recently ruptured hemorrhagic cyst.
05/08/23 CT a/p with IV contrast: Lack of renal excretion bilaterally. This can be seen with septic shock. Reported hypotension. Mild intrahepatic biliary dilatation. New. This would better be evaluated� by abdominal ultrasound. Moderate
abdominopelvic ascites. Progressed. Ruptured ovarian cyst not excluded. Nonvisualization of the appendix. Acute appendicitis cannot be excluded.
05/10/23 CXR: Findings suggesting severe pulmonary edema. Bilateral perihilar and lower lobe pneumonia cannot be excluded. Significantly progressed.
05/11/23 CXR: There is a new endotracheal tube with tip in the trachea approximately 1.5 cm above the smith. Marked widespread bilateral central parenchymal opacification is again seen without significant change.
05/12/23 CXR:�Patchy foci of airspace consolidation bilaterally. Improved aeration compared to prior study. Differential diagnosis includes pulmonary edema, multifocal pneumonia, and/or ARDS. Speed of improvement is most suggestive of improved
pulmonary edema.
[2023-05-14] MEDS: TORADOL 15 MG IV (10:40)
--- NOTE | 2023-05-14 10:59 | W.PN.GS2 ---
Addendum entered and electronically signed by Magdaleno Rodriguez MD 05/14/23 12:18:
I saw and examined the patient.
The Polysomnograph Tech's note was reviewed and I agree with the note.
Comment: Extubated, awake alert and conversant. Poor IS performance. Denies n/v, passing stool and flatus. NGT outut is low. Drain output is clearing. Belly soft, nd, approp ttp. Aquacel intact. DC NGT and trial clears. If she does not tolerate PO
well she may benefit from TPN. Will follow.
Original Note:
Today's Communication / Plan
-
Remove NGT
Start clear liquids
Assessment / Plan
-
37F with septic shock most likely 2/2 ruptured TOA POD#5 s/p ex-lap and washout
Re-intubated post op d/t pulmonary failure/possible ards. Now off pressors and extubated
WBC improved but remains elevated
Micro: strep pyogenes
Afebrile x24h
TARIQ outputs now serous/clear
+BM's, low gastric outputs from NGT
Plan:
IV abx per ID, follow cultures
NGT removed at bedside, start clear liquids and follow for tolerance
Hold off on TPN given initiation of PO nutrition today
IS q1h while awake
C/W TARIQ drain
Analgesics with Tylenol/Toradol and Dilaudid
DVT ppx
Will follow
Subjective Data
-
Date of Service: May 14, 2023
Patient seen and examined with family at bedside. Sleepy but awake. Reports she is thirsty. Abdominal soreness present. Denies n/v. Passing flatus/loose stools.
Objective Data
-
Intake and Output
05/13/23 05/14/23 05/15/23
06:59 06:59 06:59
Intake Total 1882.1 / 1906.3 110.3 / 110.3
Output Total 8135 / 8135 1495 / 1495
Balance -6252.9 / -6228.7 -1384.7 / -1384.7
Intake:
IV fluids (Total) 1032.1 / 1056.3 110.3 / 110.3
Gammagard IV 261 / 261
fentanyl 120 / 125 10 / 10
levo 483.5 / 498.5 91.9 / 91.9
propofol 119.6 / 123.8 8.4 / 8.4
vaso 48 / 48
IV piggybacks 575 / 575
Tube feeding 120 / 120
Feeding tube flush amount 55 / 55
Amount instilled into GI Tube ( 100 / 100
Total)
[place] Sump 100 / 100
Output:
Drain Output (Total) 275 / 275 120 / 120
Right Abdomen 275 / 275 120 / 120
Gastrointestinal tube output ( 200 / 200
Total)
[place] Sump 200 / 200
Urine, [place] 7660 / 7660 1375 / 1375
Vital Signs
Temp Pulse Resp BP Pulse Ox
99.2 F 70 37 95/70 98
05/14/23 07:30 05/14/23 06:45 05/14/23 06:45 05/13/23 08:44 05/14/23 06:45
Lab Results
05/13/23 03:43
05/14/23 03:31
Calcium 7.5 mg/dl (8.4-10.2) L 05/14/23 03:31
Phosphorus 2.4 mg/dl (2.5-4.5) L 05/13/23 03:43
Magnesium 1.7 mg/dl (1.6-2.3) 05/14/23 03:31
Total Bilirubin 0.5 mg/dl (0.2-1.3) 05/12/23 04:29
Direct Bilirubin 0.5 mg/dl (0.0-0.4) H 05/12/23 04:29
AST 141 U/L (14-36) H 05/12/23 04:
ALT 189 U/L (0-35) H 05/12/23 04:29
Alkaline Phosphatase 111 U/L (38-126) 05/12/23 04:29
Total Protein 5.0 g/dl (6.3-8.2) L 05/12/23 04:
Albumin 2.0 g/dl (3.5-5.0) L 05/12/23 04:29
Physical Exam
-
Awake, sleepy but answering questions appropriately and oriented
HEENT: NGT with gatsric output
Abd: soft, mild distension, midline dressing with shadowing, TARIQ serous/clear
--- NOTE | 2023-05-14 11:44 | W.PN.UPDATE ---
Update Note
Progress Note Update
Patient extubated, able to answer questions. Is 'sore', Toradol has been added to pain management.
Advised patient and nothing for BUSINESS DEVELOPMENT AGENT to do at this time, have been reassured by ID, course is appropriate for aggressiveness of Strep A TSS, so not currently contemplating any surgical intervention.
Will continue to follow.
--- NOTE | 2023-05-14 12:00 | PTCARENOTE ---
1040-Toradol ordered cleared by gen surgery, ordered placed by MD. PRN dose given with +results. Family remains at bedside, no changes in assessment.
--- NOTE | 2023-05-14 13:59 | W.PN.CARDCBS ---
Today's Communication / Plan
-
Improved cardiac status
MSOF from toxic shock syndrome resolving
Repeat echocardiogram on May 16 to assess EF and mitral regurgitation
Impression / Plan
-
PCP: Nisha Vann NP
Director Of Sustainability Programs: None, initially seen by Dr. ROCHELLE Montesinos
Impression:
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
MSOF
Acute HFrEF
Type II myocardial infarction, troponin 2.3
Ruptured R tubo-ovarian abscess w/ peritonitis
Ventilator dependent respiratory failure
Acute pulmonary edema
Nonischemic cardiomyopathy, EF 25% likely related to TSS
Moderate mitral regurgitation
FELICITY, improved
Acute hepatic injury
Ovarian cysts s/p cystectomy x2
Anxiety
Echo 05/11/2023: EF 25%, mildly dilated LV with global hypokinesis, at least moderate MR, PASP 32 mmHg
Plan:
Patient now extubated and conversant, feels weak and fatigued, no specific complaints.
Cardiac status seems stable. I suspect her ejection fraction is significantly improved. I did not hear mitral regurgitation murmur on exam.
Acute HFrEF seems resolved. Breath sounds still diminished in bases but neck veins look okay. Chest x-ray still with infiltrates, suspect component of ARDS. Check proBNP in a.m.
Hyponatremia has resolved. Acute kidney injury has resolved.
Repeat echo on May 16.
Would not pursue elevated troponin further.
Anemia/thrombocytopenia: Await follow-up CBC
HPI: Glenda is a 37-year-old female with past medical history of ovarian cysts and anxiety who presented to ER initially on 05/07/2023 for evaluation of abdominal and back pain. Imaging revealed that she likely had a ruptured ovarian cyst and
there was free fluid noted in the pelvis. She was hemodynamically stable at the time and was able to be discharged, however then returned the next day on 05/08/2023 she began feeling worse with increased abdominal pain, nausea, and vomiting with
associated lightheadedness and shortness of breath. She was hypotensive on arrival and was felt to be in septic shock. She was started on dopamine and Levophed. Repeat imaging showed increased abdominal fluid with no free air. Patient was taken
urgently to the OR where she underwent exploratory laparotomy and drainage of intra-abdominal abscess. She also was started on IV antibiotics. Postoperatively she remained intubated until 05/10/2023 when she was extubated, but early in a.m. on
05/11/2023 she had worsening respiratory status and required reintubation due to acute pulmonary edema. Echocardiogram was checked and revealed cardiomyopathy with EF 25% and at least moderate MR. Cardiology consulted for evaluation given
cardiomyopathy. At this time, patient remains intubated and sedated in the ICU.
Progress Note - Director Of Sustainability Programs
Subjective
Date of Service: May 14, 2023:
Allergies, meds, PSH, PMH, SH, FH: No change
ROS: Now extubated, fatigue, weak, not dyspneic
She is extubated, states she feels tired and weak but no complaints
BUN/creatinine 23 and 0.5, sodium 140
Telemetry: Sinus rhythm
Objective
Labs:
05/13/23 03:43
05/14/23 03:31
Labs
Hgb 9.1 g/dL (12.0-16.0) L 05/13/23 03:43
Hct 26.2 % (37.0-47.0) L 05/13/23 03:43
Plt Count 102 10^3/uL (130-400) L D 05/13/23 03:43
PT 16.1 Sec (11.4-14.6) H 05/12/23 04:29
INR 1.29 05/12/23 04:29
APTT 40.3 Sec (23.4-35.0) H 05/12/23 04:29
Sodium 140 mmol/L (135-145) 05/14/23 03:31
Potassium 3.7 mmol/L (3.5-5.1) 05/14/23 03:31
BUN 23 mg/dl (7-17) H 05/14/23 03:31
Creatinine 0.5 mg/dL (0.6-1.0) L 05/14/23 03:31
Glucose 103 mg/dl (70-99) H 05/14/23 03:31
Troponins
05/12/23
08:48
Troponin I 2.340 H*
Vital Signs and I&O:
Vital Signs
Temp Pulse Resp BP Pulse Ox
36.4 C 71 37 95/70 94
05/14/23 11:30 05/14/23 13:00 05/14/23 13:00 05/13/23 08:44 05/14/23 12:13
Vital Signs
Temp Pulse Resp BP Pulse Ox
36.4 C 71 37 95/70 94
05/14/23 11:30 05/14/23 13:00 05/14/23 13:00 05/13/23 08:44 05/14/23 12:13
Intake & Output
05/12/23 05/13/23 05/14/23 05/15/23
07:59 07:59 07:59 07:59
Intake Total 1882.2 / 1974.5 1814.0 / 1838.2 86.1 / 86.1
Output Total 2605 / 2650 8090 / 8090 1495 / 1495 1000 / 1000
Balance -722.8 / -675.5 -6276.0 / -6251.8 -1408.9 / -1408.9 -1000 / -1000
Physical Exam
Physical Exam
Pulse 70s, blood pressure 95-100 systolic, head neck exam unremarkable, diminished breath sounds in bases, regular rate and rhythm without murmur, JVD okay, abdomen benign, extremities without clubbing cyanosis or edema neuro nonfocal
[2023-05-14] MEDS: STERILE WATER FOR INJECTION 20 ML IV (14:51)
[2023-05-14] MEDS: ROCEPHIN 2000 MG IV (14:51)
[2023-05-14 15:21] VITALS: BP 127/83; PULSE 72; O2SAT 98
[2023-05-14 15:26] VITALS: BP 127/83; PULSE 76; O2SAT 98
--- NOTE | 2023-05-14 15:36 | PTCARENOTE ---
Pt sat on side of bed with PT/OT assistance. Pt denies having pain with movement. Family at bedside.
[2023-05-14] MEDS: LOVENOX 40 MG SC (17:45)
[2023-05-14] MEDS: ZOLOFT 150 MG PO (19:34)
--- NOTE | 2023-05-14 20:00 | PTCARENOTE ---
rec`d pt at 1900 laying in bed, AAOx3 and smiling. afebrile. + pulses. Rt Radial A line flushed and patent. Rt IJ in place, all luman capped. 2L NC satting at 96%. diminished lung sounds. incontinent of stool. Pt had 3 BM within first hour of shift.
all liquid brown stool. Pt asks for bedpan but doesnt go on bedpan. once pt is off bedpan, pt then has BM. collins in place draining rubi urine. Rt TARIQ draining minimal serous drainage. call johnston in reach. safe environment maintained. family at
bedside.
[2023-05-14 23:07] VITALS: BP 106/65
[2023-05-15] VITALS (11 sets, daily range): BP systolic 93–118; BP diastolic 54–71; BMI 25.2
--- NOTE | 2023-05-15 00:12 | PTCARENOTE ---
pt reassessed. no changes in pt assessment. Rt R A line discontinued. pt now resting comfortably in bed. call johnston in reach.
[2023-05-15] MEDS: XANAX 0.5 MG PO (00:56)
[2023-05-15 03:35] LABS: Hematocrit 27.2 % (37.0-47.0); Hemoglobin 9.6 g/dL (12.0-16.0); Mean Corp Hgb Conc. 35.3 g/dL (33.0-37.0); Mean Corpuscular Hgb 28.9 pg (27.0-31.0); Mean Corpuscular Volume 81.9 fL (81.0-99.0); Mean Platelet Volume 11.8 fL (7.4-10.4); Platelet Count 153 10^3/uL (130-400); Red Blood Cell Count 3.32 10^6/uL (4.20-5.40); Red Cell Dist. Width 13.9 % (11.5-14.5)
--- NOTE | 2023-05-15 04:00 | PTCARENOTE ---
pt reassessed. no changes in pt assessment. safe environment.
[2023-05-15 04:25] LABS: Blood Urea Nitrogen 18 mg/dl (7-17); Calcium 7.2 mg/dl (8.4-10.2); Carbon Dioxide 22 mmol/L (22-30); Chloride 107 mmol/L (98-107); Estimated Creatinine Clearance 111 ml/min; Glucose 97 mg/dl (70-99); Magnesium 1.5 mg/dl (1.6-2.3); Potassium 3.3 mmol/L (3.5-5.1); Sodium 132 mmol/L (135-145); eGFR > 60.00
[2023-05-15] MEDS: KCL 100 IV (05:47)
[2023-05-15] MEDS: CALCIUM GLUCONATE 100 IV (05:54)
[2023-05-15] MEDS: MAGNESIUM SULFATE 50 IV (05:56)
[2023-05-15] MEDS: MIRALAX TUBE (07:50)
--- NOTE | 2023-05-15 07:52 | PTCARENOTE ---
recd pt, family bedside. awake, assessed, abd tender but notes no need for pain med at this time. splints with activity. assisted OOB to recliner min assist 2, slippers in place. upon arrival to chair, noted need for moving bowels, on bedpan,
flatus. ordered breakfast clear liquid. tolerating room air, using IS. aware of plans for the day.
--- NOTE | 2023-05-15 08:31 | W.PN.INTV ---
Today's Communication / Plan
Recommendations
Abx as per ID
Repeat CXR in 4-6 weeks
PT/OT
Pt awaiting downgrade to IMU; Talent Acquisition Specialist/pulmonary service will now sign off. Thank you for allowing us to be involved in the care of this patient; please call back if any respiratory issues develop or if there are any additional questions or
concerns.
Assessment
-
37-year-old female with a history of ovarian cyst status post cystectomy's twice with most recent in 2013 presented with abdominal pain, chills, shortness of breath, nausea and CT chest showed free fluid in the dependent pelvis felt to be sequelae
of recent ruptured adnexal cyst, however with abdominal pain and sepsis patient went to the OR 05/08/2023-thin purulence throughout abdomen majority within pelvic, right ovary and tube inflamed and edematous-demographer consulted for septic
shock/pressor/ventilator/critical care management 05/09/2023.
Assessment
Septic shock unresponsive to fluids requiring triple pressors - shock state now resolved and she is HDN stable
Ruptured right tubo-ovarian abscess with peritonitis suspected-clinical picture not entirely consistent, less likely toxic shock syndrome-no rash, etc.
Status post exploratory laparotomy with washout on 05/08/2023
Group A strep toxic shock syndrome
Ventilator dependent respiratory failure-severe acidosis-postoperative
Intubated 05/08/2023
Extubated 05/10/2023
Reintubated for CHF/ARDS 05/11/2023
Extubated 05/13/2023
Acute pulmonary edema - currently appears euvolemic
Metabolic acidosis -resolved
Lactic acidosis
FELICITY - improved
Hyponatremia
Hypokalemia
Normocytic anemia
Thrombocytopenia -due to sepsis - thrombocytopenia now resolved
Coagulopathy secondary to sepsis
Cardiomyopathy-EF 25%-suspect acute NICM related to sepsis
Moderate mitral regurgitation
Conditions present prior to admission:
Ovarian cyst status post laparoscopic drainage and removal twice before.
Anxiety.
Anemia
Plan
Patient has markedly improved, currently ambulating on room air with fatigue but no shortness of breath or chest pain, and no longer on vasopressors.
Continue to antibiotics -Rocephin on since 05/10; s/p zosyn from 05/08 - 05/09 and Doxy 05/09 - 05/10 & clindamycin 05/10 - 05/13
Chest x-ray 05/13/2023-stable appearance with significant improvement from 48 hours ago in bilateral pulm infiltrates
Chest x-ray 05/14/2023-still has significant bilateral pulmonary infiltrates/consolidations-no significant change
Incentive spirometry encouraged
Acapella
She currently appears euvolemic today so hold off on additional diuresis
Monitor renal function, electrolytes, intake/output, lower extremity edema and weight
Continue to replace electrolytes as needed
Cultures reviewed-Streptococcus pyogenes from wound culture
Chlamydia and Neisseria-negative
MRSA screen-negative
Exploratory laparotomy wound cultures-Streptococcus pyogenes
Blood cultures-no growth
Empiric antibiotics continue - Abx narrowed to rocephin
Infectious disease following-correspondence reviewed
Finished IVIG 3-day course-finish third dose on 05/12/2023-for possible toxic shock
Trend leukocytosis
Repeat TTE to assess for improvement in LVEF
Surgery following-correspondence reviewed
IRON CASTER following - recs appreciated
Nephrology signed off - recs appreciated
DVT prophylaxis-on Lovenox
stress ulcer ppx - no longer indicated
On regular diet and tolerating
PT/OT
I answered all the patient's questions and the patient's 's questions today at bedside. Patient doing well, awaiting downgrade to IMU. She is on room air, hemodynamically stable. She needs repeat CXR in 4 to 6 weeks. Abnormal chest
radiograph likely due to acute pulmonary edema/interstitial pneumonitis. She currently has no respiratory complaints although she continues to be fatigued with exertion which is likely due to deconditioning giving her hospital course.
She is awaiting downgrade to IMU and pulmonary service will now sign off. Thank you for allowing us to be involved in the care of this patient and please call back if any respiratory issues develop or if there are any additional questions or
concerns.
Previously:
Dr. Covington reviewed case with sister at the bedside twice and on 05/10/2023-updated current clinical situation, prognosis, treatment plan
Dr. Covington reviewed the case with at the bedside 05/11/[address]
Dr. Covington reviewed current clinical situation, improvements, hospital course thus far, prognosis, etc. with and sister at the bedside 05/12/[address]
Dr. Covington reviewed current clinical status with at the bedside 05/13/2023-Hope to extubate
Dr. Covington reviewed current clinical status again with at bedside 05/14/2023
Diagnostic data:
Chest x-ray 05/09/2023-tip of ET tube 1.5 cm above smith, mild right perihilar interstitial airways disease which may be pneumonia
CXR 05-15-2023: Much improved findings suggest bibasilar pneumonia; Tiny left pleural effusion.
Transvaginal ultrasound 05/27-suspicious for uterine adenomyosis, unremarkable appearance of ovaries bilaterally, small volume complex free fluid in the pelvis
CT abdomen and pelvis 05/08/2023-small volume free fluid in the dependent true pelvis may be sequelae of recently ruptured adnexal cyst, unremarkable pelvis
CT abdomen and pelvis 05/08/2023-lack of excretion bilaterally can be seen with septic shock, mild intrahepatic biliary dilation new, moderate abdominal pelvic ascites which is progressed
Subjective Dataa
Subjective Data
Date of Service:
Date of Service: May 15, 2023
Chief Complaint: Talent Acquisition Specialist Follow Up and Pulmonary Follow Up
Subjective:
Seen this AM. Pulling 500-750cc from IS. She was able to walk around room today in NAD. She is on room air. BP 109/73, HR 77. She denies abdominal pain, chest pain, fevers or chills. Has serosanguineous fluid draining from TARIQ drain in right
lower quadrant of abdomen.
Review of Systems
General: Other (Negative unless mentioned above)
Objective Data
Data Reviewed
Vital Signs / I&O / Oxygen:
Vital Signs
Temp Pulse Resp BP Pulse Ox
98.4 F 75 30 102/68 95
05/15/23 07:15 05/15/23 09:02 05/15/23 09:02 05/15/23 09:02 05/15/23 07:30
Intake and Output
05/14/23 05/15/23 05/16/23
06:59 06:59 06:59
Intake Total 110.3 / 110.3 780 / 780 630 / 630
Output Total 1495 / 1495 1610 / 1610 425 / 425
Balance -1384.7 / -1384.7 -830 / -830 205 / 205
SaO2 [CPAP/PSV] 96
SaO2 [A/C] 98
SaO2 95
Nasal Cannula flow liters per 2
minute
Physical Exam
General: Respiratory Distress (n) and Comfortable
HEENT: Normocephalic and Anicteric
Cardiovascular: S1-S2 and Peripheral Edema (Negative)
Respiratory: Wheeze (n), Crackles (n), Rhonchi (negative), Non-Labored Respirations, Accessory Resp Muscle Use (n) and Stridor (n)
GI: Soft, Non Distended, Non Tender and Other (TARIQ drain in RLQ)
Neurology: Awake, Alert and No Motor Deficits
Skin: Warm, Dry, Good Color, Cyanosis (n), Jaundice (n) and Rash (n)
Labs/Micro/Reports
Lab Data
05/15/23 03:17
05/15/23 03:17
Microbiology
05/09/23 01:35 Abdomen Wound Culture - Final
Streptococcus pyogenes
05/09/23 01:35 Abdomen Gram Stain - Final
05/09/23 01:35 Abdomen Anaerobic Culture - Final
NO ANAEROBES ISOLATED
05/08/23 23:35 Blood/Venous Blood Culture - Final
No Growth - Final Report
05/08/23 23:35 Blood/Venous Blood Culture - Final
No Growth - Final Report
--- NOTE | 2023-05-15 09:10 | W.PN.GS2 ---
Today's Communication / Plan
-
Advance diet
Assessment / Plan
-
37F with septic shock most likely 2/2 ruptured TOA POD#6 s/p ex-lap and washout. Re-intubated post op d/t pulmonary failure/possible ards. Now off pressors and extubated and improving.
AFVSS
WBC remains elevated
Micro: strep pyogenes
TARIQ outputs serous/clear
Expected ileus post op which is resolving
Plan:
IV abx per ID, follow cultures/cbc
Advance to regular diet, advised to start with small meals
IS q1h while awake
OOB as tolerated
Ok for removal of collins catheter
C/W TARIQ drain, will likely remove prior to d/c
Analgesics with Tylenol/Toradol and oxycodone
Ok from surgical standpoint for transfer out of ICU
DVT ppx
Subjective Data
-
Date of Service: May 15, 2023
Patient seen and examined at bedside with Dr. Lott. Denies n/v. Tolerating clears. Passing a good deal of flatus. Has had BM's. Some abdominal discomfort but no severe pain. OOB to chair. Reports generalized weakness
Objective Data
-
Intake and Output
05/14/23 05/15/23 05/16/23
06:59 06:59 06:59
Intake Total 110.3 / 110.3 780 / 780
Output Total 1495 / 1495 1610 / 1610
Balance -1384.7 / -1384.7 -830 / -830
Intake:
Oral fluids 780 / 780
IV fluids (Total) 110.3 / 110.3
fentanyl 10 / 10
levo 91.9 / 91.9
propofol 8.4 / 8.4
Output:
Drain Output (Total) 120 / 120 60 / 60
Right Abdomen 120 / 120 60 / 60
Urine, [place] 1375 / 1375 1550 / 1550
Vital Signs
Temp Pulse Resp BP Pulse Ox
98.4 F 66 38 106/65 99
05/15/23 07:15 05/15/23 04:45 05/15/23 04:45 05/14/23 23:07 05/15/23 04:45
Lab Results
05/15/23 03:17
05/15/23 03:17
Calcium 7.2 mg/dl (8.4-10.2) L 05/15/23 03:17
Phosphorus 2.4 mg/dl (2.5-4.5) L 05/13/23 03:43
Magnesium 1.5 mg/dl (1.6-2.3) L 05/15/23 03:17
Total Bilirubin 0.5 mg/dl (0.2-1.3) 05/12/23 04:29
Direct Bilirubin 0.5 mg/dl (0.0-0.4) H 05/12/23 04:29
AST 141 U/L (14-36) H 05/12/23 04:29
ALT 189 U/L (0-35) H 05/12/23 04:29
Alkaline Phosphatase 111 U/L (38-126) 05/12/23 04:29
Total Protein 5.0 g/dl (6.3-8.2) L 05/12/23 04:29
Albumin 2.0 g/dl (3.5-5.0) L 05/12/23 04:29
Physical Exam
-
NAD, Ox3
Abd: soft, ND, midline incision with intact staple line (dressing changed), TARIQ serous/light pink
--- NOTE | 2023-05-15 11:13 | W.PN.HOSP.TC ---
Today's Communication/Plan
-
Extubated. Stable respiratory status with no requirements of supplemental oxygen.
Off IV fluids
Off IV Lasix
Continue antibiotics
Advance diet.
Physical therapy assessment
Repeat echocardiogram on 05/16
Assessment / Plan
Assessment / Plan
Impression:
Severe sepsis
Severe septic shock with hypotension not responding to IV fluids requiring multiple vasopressors
Ruptured right tubo-ovarian abscess with peritonitis.
Wound culture isolated group A strep.
Streptococcal toxic shock syndrome
Ventilatory dependent respiratory failure in the settings of severe sepsis.
Cardiomyopathy with LVEF of 25% suspected secondary to sepsis.
Type II VA
Severe metabolic acidosis with elevated lactic acid level.
Acute kidney injury
Hyponatremia suspected secondary to volume overload/vasopressin
Hypokalemia
Hypocalcemia
Acute neutropenia secondary to sepsis.
Acute anemia
Coagulopathy secondary to sepsis.
Abnormal LFTs secondary to shock liver
Conditions prior to admission:
Ovarian cyst status post cystectomy twice most recently 2013.
Anxiety
Plan
Severe sepsis secondary to ruptured right pelvic abscess.
Severe septic shock requiring multiple vasopressors.
Status post exploratory laparotomy with washout on 05/08.
Operative Findings:�
1. Thin purulence throughout abdomen, majority within pelvis, RIGHT ovary and tube inflamed and edematous
2. No inflammation/adhesions of bowel, no perforation, no bilious ascites (all bowel evaluated stomach, duodenum, SB, appendix, and entire colon), leak test of stomach and colon
Right pelvic TARIQ drain in place.
Blood/intraperitoneal cultures pending.
Initiated on empiric antibiotic Zosyn.
Wound culture isolate with group A strep.
Given the above and rapidly developed multiple organ failure group A strep toxic shock most likely.
Was on Zosyn, now narrowed to ceftriaxone (was on clindamycin for antitoxin effect, now stopped)
IVIG therapy initiated on 05/10 for 3 days
Severe septic shock with hypotension requiring pressors.
Lactic acidosis.
Acute kidney injury secondary to above, now resolved
Hyponatremia/hypokalemia/hypocalcemia
Responded to alkalinized IV fluids
Lactic acid trended down to normal
VDRF, secondary to severe sepsis and hemodynamic instability.
Weaned off sedation
Extubated on 05/10.
Developed acute pulmonary edema requiring reintubation on 05/11.
-Extubated 05/13/23
Acute pulmonary edema with differential cardiogenic versus noncardiogenic, versus large volume required for sepsis resuscitation.
Echocardiogram 05/11 with dilated LV and ejection fraction 25%. Nonischemic cardiomyopathy suspected secondary to severe sepsis and shock.
Elevated troponin, suspect type II VA. ECG with no evidence of ischemia
Has been off IV fluids
s/p diuresis with IV Lasix. Received Diamox given respiratory/metabolic alkalosis.
Repeat Echo on 05/16/23
Acute severe neutropenia transition into leukocytosis
Acute anemia secondary to severe illness, dilutional component, intraoperative acute blood loss.
Monitor CBC
Nutrition: Advance to solid diet
Coagulopathy secondary to severe sepsis
Follow PTT/PT/INR/fibrinogen.
Anxiety: Home sertraline on hold
FULL/Lovenox.
Discussed with Dr. Covington.
Total critical care time spent = 32 min
Anticipated Discharge: > 48 hours
Subjective/Interval History
-
Date of Service: May 15, 2023
Objective Data
-
Labs:
Laboratory Results
05/15/23
03:17
WBC 15.0 H
Hgb 9.6 L
Hct 27.2 L
Plt Count 153 D
Sodium 132 L D
Potassium 3.3 L
Chloride 107
Carbon Dioxide 22
BUN 18 H
Creatinine 0.4 L
Glucose 97
Calcium 7.2 L
Vital Signs:
Vital Signs
Temp Pulse Resp BP Pulse Ox
98.4 F 75 30 102/68 95
05/15/23 07:15 05/15/23 09:02 05/15/23 09:02 05/15/23 09:02 05/15/23 07:30
I&O
05/14/23 05/15/23 05/16/23
06:59 06:59 06:59
Intake Total 110.3 / 110.3 780 / 780 630 / 630
Output Total 1495 / 1495 1610 / 1610 425 / 425
Balance -1384.7 / -1384.7 -830 / -830 205 / 205
Physical Exam
-
General: Well Developed and No Apparent Distress
HEENT: Normocephalic, Atraumatic and Moist Mucous Membranes
Respiratory: Clear to Auscultation
Cardiac: Regular Rhythm and S1/S2; Negative Murmur, Rub or Gallop
GI: Soft, Nontender, Nondistended and Normal Bowel Sounds; Negative Organomegaly
Rectal: Deferred by Provider
Genito-urinary: [place]
Musculoskeletal: No Clubbing, No Cyanosis and No Edema
Skin: Negative Rash
Neuro: Awake, Alert, Oriented and Nonfocal/Grossly Intact
--- NOTE | 2023-05-15 11:29 | W.PN.CARDCBS ---
Today's Communication / Plan
-
Stable cardiology status
Recheck proBNP
Check echocardiogram and hopefully ejection fraction will normalize as reduced EF was felt to be due to sepsis
Stable cardiology status for transfer out of ICU
Impression / Plan
-
PCP: Nisha Vann NP
Java Tech: None, initially seen by Dr. ROCHELLE Montesinos
Impression:
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
Status post VDRF
Acute HFrEF
Non-DE troponin elevation, troponin 2.3
Ruptured R tubo-ovarian abscess w/ peritonitis
Ventilator dependent respiratory failure
Acute pulmonary edema
Nonischemic cardiomyopathy, EF 25% likely related to TSS
Moderate mitral regurgitation
FELICITY, improved
Acute hepatic injury
Ovarian cysts s/p cystectomy x2
Anxiety
Echo 05/11/2023: EF 25%, mildly dilated LV with global hypokinesis, at least moderate MR, PASP 32 mmHg
Plan:
She has improved dramatically
Hopefully reduced ejection fraction was due to sepsis which has been treated
Recheck echocardiogram
Nephrology has been managing diuretics but have signed off
Was felt to have ARDS
Will recheck proBNP which was 14,100 on 05/12
Continue antibiotics for sepsis
Stable cardiology status for transfer out of ICU
Discussed with nurse
HPI: Glenda is a 37-year-old female with past medical history of ovarian cysts and anxiety who presented to ER initially on 05/07/2023 for evaluation of abdominal and back pain. Imaging revealed that she likely had a ruptured ovarian cyst and
there was free fluid noted in the pelvis. She was hemodynamically stable at the time and was able to be discharged, however then returned the next day on 05/08/2023 she began feeling worse with increased abdominal pain, nausea, and vomiting with
associated lightheadedness and shortness of breath. She was hypotensive on arrival and was felt to be in septic shock. She was started on dopamine and Levophed. Repeat imaging showed increased abdominal fluid with no free air. Patient was taken
urgently to the OR where she underwent exploratory laparotomy and drainage of intra-abdominal abscess. She also was started on IV antibiotics. Postoperatively she remained intubated until 05/10/2023 when she was extubated, but early in a.m. on
05/11/2023 she had worsening respiratory status and required reintubation due to acute pulmonary edema. Echocardiogram was checked and revealed cardiomyopathy with EF 25% and at least moderate MR. Cardiology consulted for evaluation given
cardiomyopathy. At this time, patient remains intubated and sedated in the ICU.
Progress Note - Java Tech
Subjective
Date of Service: May 15, 2023
No complaints.
Objective
Labs:
05/15/23 03:17
05/15/23 03:17
Labs
Hgb 9.6 g/dL (12.0-16.0) L 05/15/23 03:17
Hct 27.2 % (37.0-47.0) L 05/15/23 03:17
Plt Count 153 10^3/uL (130-400) D 05/15/23 03:17
PT 16.1 Sec (11.4-14.6) H 05/12/23 04:29
INR 1.29 05/12/23 04:29
APTT 40.3 Sec (23.4-35.0) H 05/12/23 04:29
Sodium 132 mmol/L (135-145) L D 05/15/23 03:17
Potassium 3.3 mmol/L (3.5-5.1) L 05/15/23 03:17
BUN 18 mg/dl (7-17) H 05/15/23 03:17
Creatinine 0.4 mg/dL (0.6-1.0) L 05/15/23 03:17
Glucose 97 mg/dl (70-99) 05/15/23 03:17
Vital Signs and I&O:
Vital Signs
Temp Pulse Resp BP Pulse Ox
98.4 F 75 30 102/68 95
05/15/23 07:15 05/15/23 09:02 05/15/23 09:02 05/15/23 09:02 05/15/23 07:30
Vital Signs
Temp Pulse Resp BP Pulse Ox
98.4 F 75 30 102/68 95
05/15/23 07:15 05/15/23 09:02 05/15/23 09:02 05/15/23 09:02 05/15/23 07:30
Intake & Output
05/13/23 05/14/23 05/15/23 05/16/23
06:59 06:59 06:59 06:59
Intake Total 1882.1 / 1906.3 110.3 / 110.3 780 / 780 630 / 630
Output Total 8135 / 8135 1495 / 1495 1610 / 1610 425 / 425
Balance -6252.9 / -6228.7 -1384.7 / -1384.7 -830 / -830 205 / 205
Physical Exam
Physical Exam
General: Well developed, well nourished in NAD.
Neck: Supple, no JVD, HJR, carotids +2 B/L, no bruits bilaterally.
Heart: Non displaced PMI, RRR, no murmurs, No S3, S4, no rubs.
Lungs: Scattered rhonchi
Extremities: No clubbing, cyanosis or edema bilaterally.
Neuro: Grossly nonfocal, awake, alert and oriented x3.
--- NOTE | 2023-05-15 12:50 | W.PN.OBG.DWH ---
Today's Communication / Plan
-
JEWELER APPRENTICE will continue to follow along, do not anticipate needing additional surgery at this time.
Assessment/Plan
-
37yo with Likely TSS from Group A Strep s/p Exp lap with abdominal wash out on 05/08
-Patient continues to improve, per ICU nurse patient is to be transferred to IMU today
-Continue with ceftriaxone per ID
-Patient is also to have a repeat ECHO today per Cardiology
-Regular diet as tolerated
-continue with tylenol/toradol/percocet for pain control
-OOB as tolerated
-collins catheter removed.
Subjective Data
-
patient recently was OOB and walked around her bed. She says pain is minimal at this time. She is tolerating a small amount of food. Overall feels well. no SOB. no n/v/f/c
Objective Data
-
Laboratory Results
05/15/23 03:17
05/15/23 03:17
Vital Signs
Temp Pulse Resp BP Pulse Ox
98.2 F 75 30 102/68 95
05/15/23 11:30 05/15/23 09:02 05/15/23 09:02 05/15/23 09:02 05/15/23 07:30
Gen: nad aaox3, lying in bed
Abd: soft, nt, nd incision c/d/i
Drain: serosanguineous fluid- 90cc of output yesterday
Ext: No LE ttp
[2023-05-15] MEDS: ZOLOFT 150 MG PO (13:36)
[2023-05-15] MEDS: ROCEPHIN 2000 MG IV (13:53)
[2023-05-15] MEDS: STERILE WATER FOR INJECTION 20 ML IV (13:53)
--- NOTE | 2023-05-15 14:06 | CM ---
CM following re: discharge planning.
Discussed in Rounds, reviewed pt's chart, met with pt and pt's at bedside. Pt reports she is doing fine and both pt and her expressed their appreciation for care.
PT and OT evaluations noted - acute rehab level of care recommended. Both pt and her expressed their disappointed feelings and pt stated she is doing much better physically. per RN, pt was able to ambulate with a walker in the room and PT/OT
updated noted will require to determine a level of care at discharge.
Pt lives with in a 2SH and has 3 young children: 7, 5 and 2 year of age.
D/C plan: PT/OT recommend acute rehab. Awaiting for PT/OT reevaluation
CM will follow with discharge plan updates as hospitalization progresses
--- NOTE | 2023-05-15 14:22 | PTCARENOTE ---
in recliner, visiting. ate lunch. watching TV. Enc cough and deep breathing, using IS and acapella. RIJ TLC removed by IV team, midline placed, good blood return. questions answered, call jonhston in reach.
--- NOTE | 2023-05-15 15:10 | W.PN.ID1 ---
Date of Service
Date of Service: May 15, 2023
Today's Communication
Continue antibiotics. Follow-up white count and temperature curve.
Assessment / Plan
# Group A Strep PID/ruptured right tubo-ovarian abscess with peritonitis s/p laparotomy 05/09/23. OR cx: Group A strep
# Group A strep toxic shock syndrome.
# Acute hypoxemic respiratory failure, intubated 05/11/22; pulm edema vs ARDS, improving with diuresis
# Cardiomyopathy EF 25%, likely sepsis induced
- Menstruation preceded TOA. Pt uses vaginal disc receptacle during menstruation past 5 years; she cannot recall leaving it in too long.
Probable source of PID/TSS
Per BORING MACHINE OPERATOR VERTICAL, no retained foreign body in vagina
- weaned off of pressors and extubated, fever resolved and and leukocytosis trending down.
- completed IVIG and 3 day course of clindamycin
- Continue ceftriaxone 2g IV q24h (d#8 abx)
- Continue to follow closely
Chief Complaint
-: Other (Peritonitis)
Subjective / Review of Systems
Review of Systems: No Fever and No Chills
Vital Signs / Physical Exam
Vital Signs
Vital Signs
Temp Pulse Resp BP Pulse Ox
98.2 F 76 30 105/68 95
05/15/23 11:30 05/15/23 14:15 05/15/23 14:15 05/15/23 13:51 05/15/23 07:30
Physical Exam
Constitutional: No Acute Distress, Comfortable and Non-toxic
Cardiovascular: S1/S2; Negative S3/S4
Pulmonary: Non Labored; Negative Wheezes or Rales
Gastrointestinal: Soft, Tender (mild), Non Distended, Normal Bowel Sounds and Other (TARIQ in place with serous fluid.)
Wound: Other (Midline abdominal incision clean, dry and intact. [place] in place.)
Neurological: Awake, Alert and Oriented
Objective Data
Lab Data
Lab Results
05/15/23 03:17
05/15/23 03:17
PT 16.1 Sec (11.4-14.6) H 05/12/23 04:29
INR 1.29 05/12/23 04:29
APTT 40.3 Sec (23.4-35.0) H 05/12/23 04:29
Estimated Creat Clear 111 ml/min 05/15/23 03:17
Lactic Acid 2.2 mmol/L (0.7-2.0) H 05/12/23 04:29
Total Bilirubin 0.5 mg/dl (0.2-1.3) 05/12/23 04:29
AST 141 U/L (14-36) H 05/12/23 04:29
ALT 189 U/L (0-35) H 05/12/23 04:29
Alkaline Phosphatase 111 U/L (38-126) 05/12/23 04:29
Most recent labs reviewed.
Micro Results:
05/09/23 01:35 Wound Culture - Final
Abdomen Streptococcus pyogenes
Gram Stain - Final
05/09/23 01:35 Anaerobic Culture - Final
Abdomen NO ANAEROBES ISOLATED
05/08/23 23:35 Blood Culture - Final
Blood/Venous No Growth - Final Report
05/08/23 23:35 Blood Culture - Final
Blood/Venous No Growth - Final Report
05/09/23 04:57 MRSA Screen - Final
Nose No Methicillin Resistant Staphylococcus aureus isolated.
05/09/23 11:11 Chlamydia trachomatis (PCR) - Final
Urine Neisseria gonorrhoeae (PCR) - Final
05/07/23 Pelvic/transvaginal US:Findings suspicious for uterine adenomyosis. Unremarkable sonographic appearance of the ovaries bilaterally with bilateral ovarian blood flow identified. Small volume complex free fluid in the pelvis which may be the
sequela of recently ruptured hemorrhagic cyst.
05/08/23 CT a/p with IV contrast: Lack of renal excretion bilaterally. This can be seen with septic shock. Reported hypotension. Mild intrahepatic biliary dilatation. New. This would better be evaluated� by abdominal ultrasound. Moderate
abdominopelvic ascites. Progressed. Ruptured ovarian cyst not excluded. Nonvisualization of the appendix. Acute appendicitis cannot be excluded.
05/10/23 CXR: Findings suggesting severe pulmonary edema. Bilateral perihilar and lower lobe pneumonia cannot be excluded. Significantly progressed.
05/11/23 CXR: There is a new endotracheal tube with tip in the trachea approximately 1.5 cm above the smith. Marked widespread bilateral central parenchymal opacification is again seen without significant change.
05/12/23 CXR:�Patchy foci of airspace consolidation bilaterally. Improved aeration compared to prior study. Differential diagnosis includes pulmonary edema, multifocal pneumonia, and/or ARDS. Speed of improvement is most suggestive of improved
pulmonary edema.
[2023-05-15] MEDS: LOVENOX 40 MG SC (17:18)
--- NOTE | 2023-05-15 20:00 | PTCARENOTE ---
received patient. c/o general exhaustion. denies pain. mother and father at bedside, updated on plan of care with patient. pt facetiming and children, in good spirits. oriented x3. SR on monitor. on RA, diminished breath sounds noted. +
bowel sounds. ade/gauze/tape over midline abdominal incision, C/D/I. TARIQ drain to RLQ, site intact. OOB to bathroom with supervision and rolling walker. pt brushed teeth, assistance given with hygiene care. back to bed with supervision. plan of
care ongoing.
[2023-05-16] VITALS (10 sets, daily range): BP systolic 80–111; BP diastolic 44–73; PULSE 75; BMI 26.2
[2023-05-16] MEDS: MELATONIN 10 MG PO (00:27)
--- NOTE | 2023-05-16 00:41 | PTCARENOTE ---
patient reassessed. systems unchanged, pt oob to bathroom with supervision and rolling walker. pt denies pain and SOB. VSS. admits to restlessness and difficulty falling asleep. PO melatonin ordered and given - see JUN. patient care ongoing.
[2023-05-16] MEDS: ATIVAN 0.5 MG IV (01:53)
--- NOTE | 2023-05-16 04:15 | PTCARENOTE ---
patient reassessed. systems unchanged. patient repositioning self in bed. AM labs sent. plan of care ongoing.
[2023-05-16 04:25] LABS: % Basophils 0.3 % (0-2); % Eosinophils 1.1 % (0-6); % Immature Granulocytes 2.9 % (0-0.5); % Lymphocytes 22.8 % (20.5-51.1); % Monocytes 7.6 % (1.7-9.3); % Neutrophils 65.3 % (42.2-75.2); Absolute Eosinophils 0.1 10^3/uL (0-0.7); Absolute Immature Granulocytes 0.3 10^3/uL (0-0.05); Absolute Lymphocytes 2.6 10^3/uL (1.2-3.4); Absolute Monocytes 0.9 10^3/uL (0.1-0.6); Absolute Neutrophils 7.5 10^3/uL (1.4-6.5); Hematocrit 25.2 % (37.0-47.0); Hemoglobin 8.8 g/dL (12.0-16.0); Mean Corp Hgb Conc. 34.9 g/dL (33.0-37.0); Mean Corpuscular Hgb 28.1 pg (27.0-31.0); Mean Corpuscular Volume 80.5 fL (81.0-99.0); Mean Platelet Volume 11.8 fL (7.4-10.4); Nucleated Red Blood Cells % 0 %; Platelet Count 190 10^3/uL (130-400); Red Blood Cell Count 3.13 10^6/uL (4.20-5.40); Red Cell Dist. Width 14.2 % (11.5-14.5); White Blood Cell Count 11.5 10^3/uL (4.8-10.8)
[2023-05-16 04:38] LABS: NT-proBNP 5330 pg/ml
[2023-05-16 05:06] LABS: Blood Urea Nitrogen 8 mg/dl (7-17); Carbon Dioxide 22 mmol/L (22-30); Chloride 107 mmol/L (98-107); Estimated Creatinine Clearance 111 ml/min; Glucose 104 mg/dl (70-99); Potassium 3.5 mmol/L (3.5-5.1); Sodium 132 mmol/L (135-145); eGFR > 60.00
[2023-05-16] MEDS: ZOLOFT 150 MG PO (08:17)
[2023-05-16] MEDS: MIRALAX TUBE (08:18)
--- NOTE | 2023-05-16 10:38 | W.PN.GS2 ---
Today's Communication / Plan
-
-- Regular diet
-- IV abx per ID, follow cultures/cbc
-- IS q1h while awake
-- OOB as tolerated
-- C/W TARIQ drain, plan to remove prior to DC
-- Inez to be removed at 14 days post-op
-- No heavy lifting or strenuous activities for 4 weeks post-op
Assessment / Plan
-
37F with septic shock most likely 2/2 ruptured TOA POD#7 s/p ex-lap and washout.
Presented with severe sepsis and TSS from Group A Strep
Re-intubated post op d/t pulmonary failure/possible ards. Now off pressors, extubated and improving.
AFVSS
WBC trending down
Micro: Strep pyogenes
TARIQ outputs serous/clear
Plan:
-- Regular diet
-- IV abx per ID, follow cultures/cbc
-- Analgesics with Tylenol/Toradol and oxycodone
-- IS q1h while awake
-- OOB as tolerated
-- Lovenox for DVT
-- C/W TARIQ drain, plan to remove prior to DC
-- Inez to be removed at 14 days post-op
-- No heavy lifting or strenuous activities for 4 weeks post-op
Subjective Data
-
Date of Service: May 16, 2023
Feeling better. Denies significnat abdominal pain. SOB improving. Voiding. Ambulating. No fevers.
Objective Data
-
Intake and Output
05/15/23 05/16/23 05/17/23
06:59 06:59 06:59
Intake Total 780 / 780 1950 / 1950
Output Total 1610 / 1610 720 / 720
Balance -830 / -830 1230 / 1230
Intake:
Oral fluids 780 / 780 1800 / 1800
IV piggybacks 150 / 150
Output:
Drain Output (Total) 70
Right Abdomen 70 70
Urine, [place] 1550 / 1550 325 / 325
Urine, Voided 325 / 325
Other:
Number of approximated MODERATE 1
amounts of urine
Vital Signs
Temp Pulse Resp BP Pulse Ox
97.9 F 76 29 111/67 99
05/16/23 08:16 05/16/23 06:30 05/16/23 06:30 05/16/23 03:59 05/16/23 04:22
Lab Results
05/16/23 04:03
05/16/23 04:03
Calcium 7.0 mg/dl (8.4-10.2) L 05/16/23 04:03
Phosphorus 2.4 mg/dl (2.5-4.5) L 05/13/23 03:43
Magnesium 1.5 mg/dl (1.6-2.3) L 05/15/23 03:17
Total Bilirubin 0.5 mg/dl (0.2-1.3) 05/12/23 04:29
Direct Bilirubin 0.5 mg/dl (0.0-0.4) H 05/12/23 04:29
AST 141 U/L (14-36) H 05/12/23 04:29
ALT 189 U/L (0-35) H 05/12/23 04:29
Alkaline Phosphatase 111 U/L (38-126) 05/12/23 04:29
Total Protein 5.0 g/dl (6.3-8.2) L 05/12/23 04:29
Albumin 2.0 g/dl (3.5-5.0) L 05/12/23 04:29
Physical Exam
-
Gen: NAD
Abd: soft, mild tenderness, ND, non-peritoneal, incision c/d/i - no erythema, ecchymosi or drainage, ade in place, TARIQ serous
--- NOTE | 2023-05-16 11:47 | W.PN.CARDCBS ---
Addendum entered and electronically signed by Perez Orlando MD 05/16/23 13:52:
Formal echocardiogram report with ejection fraction of 45 to 50% which is dramatically improved. Continue low-dose Coreg
Original Note:
Today's Communication / Plan
-
Quick look ejection fraction reveals a remains reduced but may be improved
Will add low-dose Coreg if blood pressure tolerates
Consider eventual JUAN FRANCISCO inhibitor
Consider ischemic evaluation if ejection fraction does not normalize but could be done as an outpatient but suspect sepsis was the cause
Volume status appears reasonable with improved proBNP and weight similar to admission weight
Continue treatment for sepsis
Impression / Plan
-
PCP: Nisha Vann NP
Optomechanical Engineer: None, initially seen by Dr. ROCHELLE Montesinos
Impression:
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
Status post VDRF
Acute HFrEF
Non-GA troponin elevation, troponin 2.3
Ruptured R tubo-ovarian abscess w/ peritonitis
Ventilator dependent respiratory failure
Acute pulmonary edema
Nonischemic cardiomyopathy, EF 25% likely related to TSS
Moderate mitral regurgitation
FELICITY, improved
Acute hepatic injury
Ovarian cysts s/p cystectomy x2
Anxiety
Echo 05/11/2023: EF 25%, mildly dilated LV with global hypokinesis, at least moderate MR, PASP 32 mmHg
Plan:
She has improved significantly and is now off of oxygen
Was felt to have ARDS
ProBNP which was 14,100 on 05/12/23 and 5330 on 05/16/23
Weight is 252 pounds on 05/16 and was 148 pounds on admission 05/07
We will hold off on diuretics
Quick peek at ejection fraction on echo reveals ejection fraction remains reduced but may be improved (await formal echo reading)
Will add low-dose Coreg if blood pressure tolerates and may consider JUAN FRANCISCO inhibitor.
Consider ischemic evaluation if ejection fraction does not normalize as an outpatient but suspect sepsis was the cause
Continue antibiotics for sepsis
Stable cardiology status for transfer out of ICU
HPI: Glenda is a 37-year-old female with past medical history of ovarian cysts and anxiety who presented to ER initially on 05/07/2023 for evaluation of abdominal and back pain. Imaging revealed that she likely had a ruptured ovarian cyst and
there was free fluid noted in the pelvis. She was hemodynamically stable at the time and was able to be discharged, however then returned the next day on 05/08/2023 she began feeling worse with increased abdominal pain, nausea, and vomiting with
associated lightheadedness and shortness of breath. She was hypotensive on arrival and was felt to be in septic shock. She was started on dopamine and Levophed. Repeat imaging showed increased abdominal fluid with no free air. Patient was taken
urgently to the OR where she underwent exploratory laparotomy and drainage of intra-abdominal abscess. She also was started on IV antibiotics. Postoperatively she remained intubated until 05/10/2023 when she was extubated, but early in a.m. on
05/11/2023 she had worsening respiratory status and required reintubation due to acute pulmonary edema. Echocardiogram was checked and revealed cardiomyopathy with EF 25% and at least moderate MR. Cardiology consulted for evaluation given
cardiomyopathy. At this time, patient remains intubated and sedated in the ICU.
Progress Note - Optomechanical Engineer
Subjective
Date of Service: May 16, 2023
She is without complaints. She is off of oxygen.
Objective
Labs:
05/16/23 04:03
05/16/23 04:03
Labs
Hgb 8.8 g/dL (12.0-16.0) L 05/16/23 04:03
Hct 25.2 % (37.0-47.0) L 05/16/23 04:03
Plt Count 190 10^3/uL (130-400) D 05/16/23 04:03
PT 16.1 Sec (11.4-14.6) H 05/12/23 04:29
INR 1.29 05/12/23 04:29
APTT 40.3 Sec (23.4-35.0) H 05/12/23 04:29
Sodium 132 mmol/L (135-145) L 05/16/23 04:03
Potassium 3.5 mmol/L (3.5-5.1) 05/16/23 04:03
BUN 8 mg/dl (7-17) 05/16/23 04:03
Creatinine 0.3 mg/dL (0.6-1.0) L 05/16/23 04:03
Glucose 104 mg/dl (70-99) H 05/16/23 04:03
Vital Signs and I&O:
Vital Signs
Temp Pulse Resp BP Pulse Ox
97.9 F 76 29 111/67 99
05/16/23 08:16 05/16/23 06:30 05/16/23 06:30 05/16/23 03:59 05/16/23 04:22
Vital Signs
Temp Pulse Resp BP Pulse Ox
97.9 F 76 29 111/67 99
05/16/23 08:16 05/16/23 06:30 05/16/23 06:30 05/16/23 03:59 05/16/23 04:22
Intake & Output
05/14/23 05/15/23 05/16/23 05/17/23
06:59 06:59 06:59 06:59
Intake Total 110.3 / 110.3 780 / 780 1950 / 1950
Output Total 1495 / 1495 1610 / 1610 720 / 720
Balance -1384.7 / -1384.7 -830 / -830 1230 / 1230
Physical Exam
Physical Exam
General: Well developed, well nourished in NAD.
Neck: Supple, no JVD, HJR, carotids +2 B/L, no bruits bilaterally.
Heart: Non displaced PMI, RRR, no murmurs, No S3, S4, no rubs.
Lungs: Clear to auscultation bilaterally, no wheeze, rhonchi, rubs bilaterally,
normal expiratory phase.
Extremities: No clubbing, cyanosis or edema bilaterally.
Neuro: Grossly nonfocal, awake, alert and oriented x3.
--- NOTE | 2023-05-16 12:30 | W.PN.ID1 ---
Date of Service
Date of Service: May 16, 2023
Today's Communication
Continue ceftriaxone for today.
Assessment / Plan
# Group A Strep PID/ruptured right tubo-ovarian abscess with peritonitis s/p laparotomy 05/09/23. OR cx: Group A strep
# Group A strep toxic shock syndrome.
# Acute hypoxemic respiratory failure, intubated 05/11/22; pulm edema vs ARDS, improving with diuresis
# Cardiomyopathy EF 25%, likely sepsis induced
# Leukocytosis
- Improving
- Menstruation preceded TOA. Pt uses vaginal disc receptacle during menstruation past 5 years; she cannot recall leaving it in too long.
Probable source of PID/TSS
Per COKE HANDLING SUPERVISOR, no retained foreign body in vagina
- weaned off of pressors and extubated, fever resolved and and leukocytosis trending down.
- completed IVIG and 3 day course of clindamycin
- Continue ceftriaxone 2g IV q24h (d#9 abx)
- Continue to follow closely
Chief Complaint
-: Other (Peritonitis)
Subjective / Review of Systems
Patient seen and examined. Reports no specific complaints today. Denies fevers or chills. Denies abdominal pain. Denies nausea or vomiting.
Review of Systems: No Fever and No Chills
Vital Signs / Physical Exam
Vital Signs
Vital Signs
Temp Pulse Resp BP Pulse Ox
98.1 F 76 29 111/67 99
05/16/23 12:10 05/16/23 06:30 05/16/23 06:30 05/16/23 03:59 05/16/23 04:22
Physical Exam
Constitutional: No Acute Distress, Well Developed, Comfortable and Non-toxic
Eyes: No Conjunctival Hemorrhage and Sclera Anicteric
Cardiovascular: S1/S2; Negative S3/S4 or Murmur
Pulmonary: Non Labored; Negative Wheezes, Rales or Rhonchi
Gastrointestinal: Soft, Non Tender and Non Distended
Extremities: Negative Edema, Cyanosis or Erythema
Neurological: Awake and Alert
Psychological: Calm
Objective Data
Lab Data
Lab Results
05/16/23 04:03
05/16/23 04:03
PT 16.1 Sec (11.4-14.6) H 05/12/23 04:29
INR 1.29 05/12/23 04:29
APTT 40.3 Sec (23.4-35.0) H 05/12/23 04:29
Estimated Creat Clear 111 ml/min 05/16/23 04:03
Lactic Acid 2.2 mmol/L (0.7-2.0) H 05/12/23 04:29
Total Bilirubin 0.5 mg/dl (0.2-1.3) 05/12/23 04:29
AST 141 U/L (14-36) H 05/12/23 04:29
ALT 189 U/L (0-35) H 05/12/23 04:29
Alkaline Phosphatase 111 U/L (38-126) 05/12/23 04:29
Most recent labs reviewed.
Micro Results:
05/09/23 01:35 Wound Culture - Final
Abdomen Streptococcus pyogenes
Gram Stain - Final
05/09/23 01:35 Anaerobic Culture - Final
Abdomen NO ANAEROBES ISOLATED
05/08/23 23:35 Blood Culture - Final
Blood/Venous No Growth - Final Report
05/08/23 23:35 Blood Culture - Final
Blood/Venous No Growth - Final Report
05/09/23 04:57 MRSA Screen - Final
Nose No Methicillin Resistant Staphylococcus aureus isolated.
05/09/23 11:11 Chlamydia trachomatis (PCR) - Final
Urine Neisseria gonorrhoeae (PCR) - Final
05/07/23 Pelvic/transvaginal US:Findings suspicious for uterine adenomyosis. Unremarkable sonographic appearance of the ovaries bilaterally with bilateral ovarian blood flow identified. Small volume complex free fluid in the pelvis which may be the
sequela of recently ruptured hemorrhagic cyst.
05/08/23 CT a/p with IV contrast: Lack of renal excretion bilaterally. This can be seen with septic shock. Reported hypotension. Mild intrahepatic biliary dilatation. New. This would better be evaluated� by abdominal ultrasound. Moderate
abdominopelvic ascites. Progressed. Ruptured ovarian cyst not excluded. Nonvisualization of the appendix. Acute appendicitis cannot be excluded.
05/10/23 CXR: Findings suggesting severe pulmonary edema. Bilateral perihilar and lower lobe pneumonia cannot be excluded. Significantly progressed.
05/11/23 CXR: There is a new endotracheal tube with tip in the trachea approximately 1.5 cm above the smith. Marked widespread bilateral central parenchymal opacification is again seen without significant change.
05/12/23 CXR:�Patchy foci of airspace consolidation bilaterally. Improved aeration compared to prior study. Differential diagnosis includes pulmonary edema, multifocal pneumonia, and/or ARDS. Speed of improvement is most suggestive of improved
pulmonary edema.
--- NOTE | 2023-05-16 12:46 | PN.CDI ---
CDI
- -
CDI:
Physician Documentation Request
Admit Date: 05/08/23 23:00
Dear Doctor Dianne,
Please review the following and provide your response in the progress notes.
Due to conflicting documentation, please clarify the etiology of the elevated troponin:
Clinical Indicators:
PN, 05/15
#Cardiomyopathy with LVEF of 25% suspected secondary to sepsis.
#Type II ND
Cardiology PN, 05/16
#Non-ND troponin elevation, troponin 2.3
#Nonischemic cardiomyopathy, EF 25% likely related to TSS
Laboratory Tests
05/12/23
08:48
Troponin I 2.340 H*
Please clarify the etiology of the elevated troponin:
Non ND troponin elevation
Type II ND
Other
Extent of ND
STEMI - indicate the location and vessel involved
NSTEMI - subendocardial, nontransmural
Type of ND
Type I
Type II (due to demand ischemia)
Use of terms such as suspected, likely, concern for, or probable (associated with a specific diagnosis that is being evaluated, monitored, or treated as if it exists) are acceptable and can be coded in the inpatient setting, when documented at the
time of discharge.
Thank you,
Jazmin Jules RN BSN CCDS
CDI Specialist
please contact via tiger text
Please use your independent medical judgment in providing your response.
[2023-05-16 13:41] LABS: Syphilis/T. pallidum Ab Reflex Negative (Negative)
--- NOTE | 2023-05-16 13:48 | PTCARENOTE ---
pt awake and alert, oob to chair multiple times today , tolerating well, ambulating hallway with physical therapy with walker , pt NSR on monitor ,prolong QT , tolerating diet , voiding without difficulty , TARIQ drain continues to drain serous fluid
, pt had Echo cardiogram today , updated on plan of care and condition , pt is IMU level of care
--- NOTE | 2023-05-16 14:00 | W.PN.OBG.DWH ---
Today's Communication / Plan
-
continue with abx
Assessment/Plan
-
group A strep, POD#8 s/p ex lap peritonitis
sepsis, ARDs
continue with ceftriaxone
menorrhagia reviewed with pt and husb: d/c home with TXA script
Mirena, uterine ablation discussed. f/up as outpt
Subjective Data
-
no complaints, voiding, + bm soft, sleeping with meds. facetimed with children, c/o heavy menses. changing cup 2x/d before changing tampon/pad hourly
Objective Data
-
Laboratory Results
05/16/23 04:03
05/16/23 04:03
Vital Signs
Temp Pulse Resp BP Pulse Ox
98.1 F 72 37 106/66 98
05/16/23 12:10 05/16/23 13:45 05/16/23 13:45 05/16/23 13:12 05/16/23 08:30
lungs cl
cor rrr
abd bandage in plae
huey drain: serous clear fluid
ext nt
[2023-05-16] MEDS: STERILE WATER FOR INJECTION 20 ML IV (14:55)
[2023-05-16] MEDS: ROCEPHIN 2000 MG IV (14:55)
--- NOTE | 2023-05-16 16:50 | W.PN.HOSP.TC ---
Today's Communication/Plan
-
Continue IV antibiotics
Increase activity
Diet has been advanced
TARIQ drain in place until discharge
Monitoring to limit
Assessment / Plan
Assessment / Plan
Impression:
Severe sepsis
Severe septic shock with hypotension not responding to IV fluids requiring multiple vasopressors
Ruptured right tubo-ovarian abscess with peritonitis.
Wound culture isolated group A strep.
Streptococcal toxic shock syndrome
Ventilatory dependent respiratory failure in the settings of severe sepsis.
Cardiomyopathy with LVEF of 25% suspected secondary to sepsis.
Type II VT
Severe metabolic acidosis with elevated lactic acid level.
Acute kidney injury
Hyponatremia suspected secondary to volume overload/vasopressin
Hypokalemia
Hypocalcemia
Acute neutropenia secondary to sepsis.
Acute anemia
Coagulopathy secondary to sepsis.
Abnormal LFTs secondary to shock liver
Conditions prior to admission:
Ovarian cyst status post cystectomy twice most recently 2013.
Anxiety
Plan
Severe sepsis secondary to ruptured right pelvic abscess.
Severe septic shock requiring multiple vasopressors.
Status post exploratory laparotomy with washout on 05/08.
Operative Findings:�
1. Thin purulence throughout abdomen, majority within pelvis, RIGHT ovary and tube inflamed and edematous
2. No inflammation/adhesions of bowel, no perforation, no bilious ascites (all bowel evaluated stomach, duodenum, SB, appendix, and entire colon), leak test of stomach and colon
Right pelvic TARIQ drain in place.
Blood/intraperitoneal cultures pending.
Initiated on empiric antibiotic Zosyn.
Wound culture isolate with group A strep.
Given the above and rapidly developed multiple organ failure group A strep toxic shock most likely.
Was on Zosyn, now narrowed to ceftriaxone (was on clindamycin for antitoxin effect, now stopped)
IVIG therapy initiated on 05/10 for 3 days
Severe septic shock with hypotension requiring pressors.
Lactic acidosis.
Acute kidney injury secondary to above, now resolved
Hyponatremia/hypokalemia/hypocalcemia
Responded to alkalinized IV fluids
Lactic acid trended down to normal
VDRF, secondary to severe sepsis and hemodynamic instability.
Weaned off sedation
Extubated on 05/10.
Developed acute pulmonary edema requiring reintubation on 05/11.
-Extubated 05/13/23
Acute pulmonary edema with differential cardiogenic versus noncardiogenic, versus large volume required for sepsis resuscitation.
Echocardiogram 05/11 with dilated LV and ejection fraction 25%. Nonischemic cardiomyopathy suspected secondary to severe sepsis and shock.
Elevated troponin, suspect type II VT. ECG with no evidence of ischemia
Responded to IV diuresis with resolution of pulmonary edema. Respiratory status stable.
Repeated echocardiogram on 05/16 with recovered LVEF at 45 to 50% with no LV wall motion abnormalities.
Acute severe neutropenia transition into leukocytosis
Acute anemia secondary to severe illness, dilutional component, intraoperative acute blood loss.
Monitor CBC
Nutrition: Advance to solid diet
Coagulopathy secondary to severe sepsis
Follow PTT/PT/INR/fibrinogen.
Anxiety: Home sertraline on hold
FULL/Lovenox.
Anticipated Discharge: > 48 hours
Subjective/Interval History
-
Date of Service: May 16, 2023
Objective Data
-
Labs:
Laboratory Results
05/16/23
04:03
Sodium 132 L
Potassium 3.5
Chloride 107
Carbon Dioxide 22
BUN 8
Creatinine 0.3 L
Glucose 104 H
Calcium 7.0 L
Vital Signs:
Vital Signs
Temp Pulse Resp BP Pulse Ox
97.6 F 72 37 106/66 98
05/16/23 15:14 05/16/23 13:45 05/16/23 13:45 05/16/23 13:12 05/16/23 08:30
I&O
0205/16/23 05/17/23
06:59 06:59 06:59
Intake Total 780 / 780 1950 / 1950 250 / 250
Output Total 1610 / 1610 720 / 720
Balance -830 / -830 1230 / 1230 250 / 250
Physical Exam
-
General: Well Developed and No Apparent Distress
HEENT: Normocephalic, Atraumatic and Moist Mucous Membranes
Respiratory: Clear to Auscultation
Cardiac: Regular Rhythm and S1/S2; Negative Murmur, Rub or Gallop
GI: Soft, Nontender, Nondistended, Normal Bowel Sounds and Other (TARIQ drain in place); Negative Organomegaly
Rectal: Deferred by Provider
Musculoskeletal: No Clubbing, No Cyanosis and No Edema
Skin: Negative Rash
Neuro: Awake, Alert, Oriented, AO x 3 and Nonfocal/Grossly Intact
[2023-05-16] MEDS: VISBIOME 1 CAP PO (17:28)
[2023-05-16] MEDS: LOVENOX 40 MG SC (17:28)
--- NOTE | 2023-05-16 17:52 | PTCARENOTE ---
pt now written to telemetry status, pt has ambulated hallway x 2 with , tolerating diet , showered and washed hair , has improved in gait and strength , family at bedside and updated on plan of care, pt to transfer to room 2122 and report
given to receiving RN
--- NOTE | 2023-05-16 18:32 | PTCARENOTE ---
Received patient from ICU into room 2122, report given by Mildred HARRIS. Patient AAOx3, VSS, x1 assist into chair. Midline incision ade intact, R side TARIQ drain with serous output. Patient oriented to room and call johnston, denies any pain and states no
concerns at this time.
[2023-05-17 03:34] VITALS: BP 100/58
[2023-05-17 06:17] LABS: % Basophils 0.3 % (0-2); % Eosinophils 0.9 % (0-6); % Immature Granulocytes 2.6 % (0-0.5); % Lymphocytes 21.2 % (20.5-51.1); % Monocytes 7.7 % (1.7-9.3); % Neutrophils 67.3 % (42.2-75.2); Absolute Eosinophils 0.1 10^3/uL (0-0.7); Absolute Immature Granulocytes 0.3 10^3/uL (0-0.05); Absolute Lymphocytes 2.5 10^3/uL (1.2-3.4); Absolute Monocytes 0.9 10^3/uL (0.1-0.6); Absolute Neutrophils 7.9 10^3/uL (1.4-6.5); Hematocrit 27.3 % (37.0-47.0); Hemoglobin 9.5 g/dL (12.0-16.0); Mean Corp Hgb Conc. 34.8 g/dL (33.0-37.0); Mean Corpuscular Hgb 28.8 pg (27.0-31.0); Mean Corpuscular Volume 82.7 fL (81.0-99.0); Mean Platelet Volume 11.2 fL (7.4-10.4); Nucleated Red Blood Cells % 0 %; Platelet Count 269 10^3/uL (130-400); Red Cell Dist. Width 14.1 % (11.5-14.5); White Blood Cell Count 11.7 10^3/uL (4.8-10.8)
[2023-05-17 06:47] LABS: Blood Urea Nitrogen 7 mg/dl (7-17); Calcium 7.4 mg/dl (8.4-10.2); Carbon Dioxide 23 mmol/L (22-30); Chloride 107 mmol/L (98-107); Estimated Creatinine Clearance 111 ml/min; Glucose 103 mg/dl (70-99); Potassium 3.6 mmol/L (3.5-5.1); Sodium 133 mmol/L (135-145); Triglycerides 271 mg/dl (10-149); eGFR > 60.00
[2023-05-17 07:05] VITALS: BP 105/62
[2023-05-17] MEDS: MIRALAX TUBE (07:52)
[2023-05-17] MEDS: VISBIOME 1 CAP PO (07:53)
[2023-05-17] MEDS: ZOLOFT 150 MG PO (07:53)
--- NOTE | 2023-05-17 08:11 | W.PN.CARDCBS ---
Addendum entered and electronically signed by Richmond Covarrubias MD 05/17/23 09:20:
I saw and examined the patient.
The Digital Coordinator's note was reviewed and I agree with the note.
Comment: GEN: No distress, awake, Ox3
HEENT: supple, anicteric, mmm
LUNGS: CTA, no wheezes/rales
CV: Reg, S1/S2, 1/6 syst LSB, no gallop
ABD: soft, BS+, NT/ND
EXT: No edema
NEURO: Gross non-focal
SKIN: No rash
Plan:
LVEF has improved back to 45 to 50%. Weight remains somewhat up. Will give Lasix 20 mg IV today.
With blood pressure marginal will hold off on carvedilol for today. Would consider this as outpatient.
Will arrange follow-up. Okay for discharge from cardiac standpoint.
Original Note:
Today's Communication / Plan
-
Echo 05/16 with improved EF to 45-50%
Follow BP and may consider Coreg as OP as BP allows
Follow up arranged
Impression / Plan
-
PCP: Nisha Vann NP
Radiologist: None, initially seen by Dr. ROCHELLE Montesinos
Impression:
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
Status post VDRF
Acute HFrEF
Non-AR troponin elevation, troponin 2.3
Ruptured R tubo-ovarian abscess w/ peritonitis
Nonischemic cardiomyopathy related to TSS, EF improved to 45-50%
Moderate mitral regurgitation
FELICITY, improved
Acute hepatic injury
Ovarian cysts s/p cystectomy x2
Anxiety
Echo 05/11/2023: EF 25%, mildly dilated LV with global hypokinesis, at least moderate MR, PASP 32 mmHg
Echo 05/16/2023: EF 45-50%, mild-moderate MR
Plan:
-Presented with sepsis in the setting of TSS and ruptured R tubo-ovarian abscess.
-Initial echo showed CM with EF 25%. Echo rechecked 05/16 and EF has improved to 45-50% as she recovers from sepsis and TSS
-ProBNP down to 5330. Weight down from peak of 171lbs, down to 152 on 05/16. Feels her edema has improved.
-Creat stable at 0.4. No longer on diuretics.
-There was consideration to add low dose coreg, however BP has been marginal and will hold off for now.
-Will consider addition of BB for medical therapy at follow up visit.
-Consider ischemic evaluation if EF dose not normalize as OP. Suspect cause of cardiomyopathy was severe sepsis.
-Continue abx per primary service.
-Cardiology follow up has been arranged.
HPI: Glenda is a 37-year-old female with past medical history of ovarian cysts and anxiety who presented to ER initially on 05/07/2023 for evaluation of abdominal and back pain. Imaging revealed that she likely had a ruptured ovarian cyst and
there was free fluid noted in the pelvis. She was hemodynamically stable at the time and was able to be discharged, however then returned the next day on 05/08/2023 she began feeling worse with increased abdominal pain, nausea, and vomiting with
associated lightheadedness and shortness of breath. She was hypotensive on arrival and was felt to be in septic shock. She was started on dopamine and Levophed. Repeat imaging showed increased abdominal fluid with no free air. Patient was taken
urgently to the OR where she underwent exploratory laparotomy and drainage of intra-abdominal abscess. She also was started on IV antibiotics. Postoperatively she remained intubated until 05/10/2023 when she was extubated, but early in a.m. on
05/11/2023 she had worsening respiratory status and required reintubation due to acute pulmonary edema. Echocardiogram was checked and revealed cardiomyopathy with EF 25% and at least moderate MR. Cardiology consulted for evaluation given
cardiomyopathy. At this time, patient remains intubated and sedated in the ICU.
Progress Note - Radiologist
Subjective
Date of Service: May 17, 2023
Feels well. No chest pain or SOB. Edema improved.
Objective
Labs:
05/17/23 05:38
05/17/23 05:38
Labs
Hgb 9.5 g/dL (12.0-16.0) L 05/17/23 05:38
Hct 27.3 % (37.0-47.0) L 05/17/23 05:38
Plt Count 269 10^3/uL (130-400) D 05/17/23 05:38
PT 16.1 Sec (11.4-14.6) H 05/12/23 04:29
INR 1.29 05/12/23 04:29
APTT 40.3 Sec (23.4-35.0) H 05/12/23 04:29
Sodium 133 mmol/L (135-145) L 05/17/23 05:38
Potassium 3.6 mmol/L (3.5-5.1) 05/17/23 05:38
BUN 7 mg/dl (7-17) 05/17/23 05:38
Creatinine 0.4 mg/dL (0.6-1.0) L 05/17/23 05:38
Glucose 103 mg/dl (70-99) H 05/17/23 05:38
Vital Signs and I&O:
Vital Signs
Temp Pulse Resp BP Pulse Ox
98.6 F 84 16 100/58 100
05/17/23 03:34 05/17/23 03:34 05/17/23 03:34 05/17/23 03:34 05/17/23 03:34
Vital Signs
Temp Pulse Resp BP Pulse Ox
98.6 F 84 16 100/58 100
05/17/23 03:34 05/17/23 03:34 05/17/23 03:34 05/17/23 03:34 05/17/23 03:34
Intake & Output
05/15/23 05/16/23 05/17/2315/24
06:59 06:59 06:59 06:59
Intake Total 780 / 780 1950 / 1950 1220 / 1220
Output Total 1610 / 1610 720 / 720 50 / 50
Balance -830 / -830 1230 / 1230 1170 / 1170
Physical Exam
Physical Exam
GEN: No distress, awake, alert, oriented x3
HEENT: supple, anicteric, mmm
LUNGS: CTA b/l, no wheezes/rales
CV: Reg, S1/S2, no murmur
ABD: soft, BS+, NT/ND
EXT: No clubbing, cyanosis, or edema
NEURO: Gross non-focal
SKIN: Warm, dry no rash
[2023-05-17] MEDS: LASIX 20 MG IV (09:59)
[2023-05-17 11:00] VITALS: BP 101/66
[2023-05-17 11:47] VITALS: BP 96/65; PULSE 87
--- NOTE | 2023-05-17 12:31 | W.PN.HOSP.TC ---
Today's Communication/Plan
-
- Outpatient follow-up with cardiology.
- TARIQ drain removed today.
- Will need oral antibiotics after discharge, per ID.
- Anticipated discharge today.
Assessment / Plan
Assessment / Plan
Impression:
* Severe sepsis
* Severe septic shock with hypotension not responding to IV fluids requiring multiple vasopressors
* Ruptured right tubo-ovarian abscess with peritonitis.
* Wound culture isolated group A strep.
* Streptococcal toxic shock syndrome
* Ventilatory dependent respiratory failure in the settings of severe sepsis.
* Cardiomyopathy with LVEF of 25% suspected secondary to sepsis. LVEF improved to 45 to 50%.
* Type II PA
* Severe metabolic acidosis with elevated lactic acid level.
* Acute kidney injury
* Hyponatremia suspected secondary to volume overload/vasopressin
* Hypokalemia
* Hypocalcemia
* Acute neutropenia secondary to sepsis.
* Acute anemia
* Coagulopathy secondary to sepsis.
* Abnormal LFTs secondary to shock liver
Conditions prior to admission:
* Ovarian cyst status post cystectomy twice most recently 2013.
* Anxiety
Plan
Severe sepsis secondary to ruptured right pelvic abscess.
- Required multiple vasopressors.
- Status post exploratory laparotomy with washout on 05/08.
- Operative Findings:�
1. Thin purulence throughout abdomen, majority within pelvis, RIGHT ovary and tube inflamed and edematous
2. No inflammation/adhesions of bowel, no perforation, no bilious ascites (all bowel evaluated stomach, duodenum, SB, appendix, and entire colon), leak test of stomach and colon
- Right pelvic TARIQ drain now removed.
- Blood/intraperitoneal cultures grew streptococcus pyogenes.
- Given the above and rapidly developed multiple organ failure group A strep toxic shock most likely.
- Was on Zosyn, now narrowed to ceftriaxone (was on clindamycin for antitoxin effect, now stopped).
- IVIG therapy initiated on 05/10 for 3 days
Severe septic shock with hypotension requiring pressors.
- Lactic acidosis.
- Acute kidney injury secondary to above, now resolved
- Hyponatremia/hypokalemia/hypocalcemia, improved
- Responded to alkalinized IV fluids
- Lactic acid trended down to within normal limits
VDRF, secondary to severe sepsis and hemodynamic instability.
- Weaned off sedation
- Extubated on 05/10.
- Developed acute pulmonary edema requiring reintubation on 05/11.
- Extubated 05/13/23
Acute pulmonary edema
- Differential cardiogenic versus noncardiogenic, versus large volume required for sepsis resuscitation.
- Echocardiogram 05/11 with dilated LV and ejection fraction 25%.
Nonischemic cardiomyopathy
- Suspected secondary to severe sepsis and shock.
- Suspect type II PA
- Elevated troponin.
- ECG with no evidence of ischemia
- Responded to IV diuresis with resolution of pulmonary edema.
- Respiratory status stable.
- Repeated echocardiogram on 05/16 with recovered LVEF at 45 to 50% with no LV wall motion abnormalities.
- Gave furosemide 20 mg IV today.
- Stable from a cardiac standpoint, with planned outpatient follow-up.
Acute severe neutropenia transition into leukocytosis
Acute anemia secondary to severe illness, dilutional component, intraoperative acute blood loss.
- Monitor CBC
- Stable.
Nutrition
- Advance to solid diet
Coagulopathy secondary to severe sepsis
- Follow PTT/PT/INR/fibrinogen.
- Stable.
Anxiety
- Home sertraline on hold
DVT prophylaxis
- Enoxaparin sodium.
Code status
- Full.
Anticipated Discharge: Today
Subjective/Interval History
-
Date of Service: May 17, 2023
Objective Data
-
Labs:
Laboratory Results
05/17/23
05:38
WBC 11.7 H
Hgb 9.5 L
Hct 27.3 L
Plt Count 269 D
Sodium 133 L
Potassium 3.6
Chloride 107
Carbon Dioxide 23
BUN 7
Creatinine 0.4 L
Glucose 103 H
Calcium 7.4 L
Vital Signs:
Vital Signs
Temp Pulse Resp BP Pulse Ox
97.8 F 79 16 101/66 100
05/17/23 11:00 05/17/23 11:00 05/17/23 11:00 05/17/23 11:00 05/17/23 11:00
I&O
05/16/23 05/17/23 05/18/23
06:59 06:59 06:59
Intake Total 1950 / 1950 1220 / 1220
Output Total 720 / 720 50 / 50
Balance 1230 / 1230 1170 / 1170
Review of Systems
-
History Source: Patient
Constitutional: Reports No Symptoms
EENT: Reports No Symptoms Reported
Respiratory: Reports No Symptoms
Cardiac: Reports No Symptoms
Abdomen/GI: Reports No Symptoms
Genitourinary: Reports No Symptoms
Musculoskeletal: Reports No Symptoms
Skin: Reports No Symptoms
Neuro: Reports No Symptoms
Endocrine: Reports No Symptoms
Hematologic / Lymphatic: Reports No Symptoms
Allergy / Immunology: Reports No Symptoms
Physical Exam
-
General: No Apparent Distress and Comfortable
HEENT: Normocephalic, Atraumatic, Moist Mucous Membranes and Anicteric
Respiratory: Clear to Auscultation
Cardiac: Regular Rhythm and S1/S2
GI: Soft, Nontender, Nondistended and No Hepatosplenomegaly
Genito-urinary: No Costovertebral Tender
Musculoskeletal: No Clubbing, No Cyanosis and No Edema
Skin: IV Access / Catheter Site
Neuro: AO x 3 and No Motor Deficits
Hematologic / Lymphatic: No Lymphadenopathy
Psych: Calm
--- NOTE | 2023-05-17 12:54 | W.PN.GS2 ---
Today's Communication / Plan
-
OK for DC from surg standpoint
Assessment / Plan
-
37F with septic shock most likely 2/2 ruptured TOA POD#8 s/p ex-lap and washout.
Presented with severe sepsis and TSS from Group A Strep
Re-intubated post op d/t pulmonary failure/possible ards.
Now off pressors, extubated and coty reg diet
Afebrile, BP soft overnight x2 but no downward trend
WBC trending down
Micro: Strep pyogenes
TARIQ outputs serous/clear
Plan:
-- Regular diet
-- IV abx per ID, follow cultures/cbc
-- Analgesics with Tylenol/Toradol and oxycodone
-- IS q1h while awake
-- OOB as tolerated
-- Lovenox for DVT
-- TARIQ drain DC'ed
-- [place] to be removed at 14 days post-op
-- No heavy lifting or strenuous activities for 4 weeks post-op
Subjective Data
-
Date of Service: May 17, 2023
Afebrile, no complaints this am, coty LRD, pain controlled
Objective Data
-
Intake and Output
05/16/23 05/17/23 05/18/23
06:59 06:59 06:59
Intake Total 1950 / 1950 1220 / 1220
Output Total 720 / 720 50 / 50
Balance 1230 / 1230 1170 / 1170
Intake:
Oral fluids 1800 / 1800 1220 / 1220
IV piggybacks 150 / 150
Output:
Drain Output (Total) 70 / 70 50 / 50
Right Abdomen 70 / 70 50 / 50
Urine, [place] 325 / 325
Urine, Voided 325 / 325
Other:
Number of approximated MODERATE 1 3
amounts of urine
Number of approximated LARGE 1
amounts of urine
Vital Signs
Temp Pulse Resp BP Pulse Ox
97.8 F 79 16 101/66 100
05/17/23 11:00 05/17/23 11:00 05/17/23 11:00 05/17/23 11:00 05/17/23 11:00
Lab Results
05/17/23 05:38
05/17/23 05:38
Calcium 7.4 mg/dl (8.4-10.2) L 05/17/23 05:38
Phosphorus 2.4 mg/dl (2.5-4.5) L 05/13/23 03:43
Magnesium 1.5 mg/dl (1.6-2.3) L 05/15/23 03:17
Total Bilirubin 0.5 mg/dl (0.2-1.3) 05/12/23 04:29
Direct Bilirubin 0.5 mg/dl (0.0-0.4) H 05/12/23 04:29
AST 141 U/L (14-36) H 05/12/23 04:29
ALT 189 U/L (0-35) H 05/12/23 04:29
Alkaline Phosphatase 111 U/L (38-126) 05/12/23 04:29
Total Protein 5.0 g/dl (6.3-8.2) L 05/12/23 04:29
Albumin 2.0 g/dl (3.5-5.0) L 05/12/23 04:29
Physical Exam
-
Gen: NAD
Abd' soft, approp ttp, incision cdi, drain clear serous (removed today)
[2023-05-17] MEDS: ROCEPHIN 2000 MG IV (13:10)
[2023-05-17] MEDS: STERILE WATER FOR INJECTION 20 ML IV (13:10)
[2023-05-17 15:05] VITALS: BP 112/61
--- NOTE | 2023-05-17 16:08 | W.PN.ID1 ---
Date of Service
Date of Service: May 17, 2023
Today's Communication
Continue abx. Transition to amoxicillin 500 mg PO TID for an additional 7 days.
Assessment / Plan
# Group A Strep PID/ruptured right tubo-ovarian abscess with peritonitis s/p laparotomy 05/09/23. OR cx: Group A strep
# Group A strep toxic shock syndrome.
# Acute hypoxemic respiratory failure, intubated 05/11/22; pulm edema vs ARDS, improving with diuresis
# Cardiomyopathy EF 25%, likely sepsis induced
# Leukocytosis
- Improving
- Menstruation preceded TOA. Pt uses vaginal disc receptacle during menstruation past 5 years; she cannot recall leaving it in too long.
Probable source of PID/TSS
Per [facility], no retained foreign body in vagina
- weaned off of pressors and extubated, fever resolved and and leukocytosis trending down.
- completed IVIG and 3 day course of clindamycin
- On ceftriaxone 2g IV q24h (d#10 abx)
--> For D/C today. Transition to amoxicillin 500 mg PO TID for an additional 7 days.
Chief Complaint
-: Other (Peritonitis)
Subjective / Review of Systems
Patient seen and examined. Overall feels well. TARIQ has been pulled.
Review of Systems: No Fever, No Chills and No Abdominal Pain
Vital Signs / Physical Exam
Vital Signs
Vital Signs
Temp Pulse Resp BP Pulse Ox
97.5 F 81 16 112/61 99
05/17/23 15:05 05/17/23 15:05 05/17/23 15:05 05/17/23 15:05 05/17/23 15:05
Physical Exam
Constitutional: No Acute Distress, Comfortable and Non-toxic
Eyes: No Conjunctival Hemorrhage
Cardiovascular: S1/S2; Negative S3/S4
Pulmonary: Clear and Non Labored
Gastrointestinal: Soft and Non Distended
Wound: Other (Abdominal incisional wound dressed.)
Neurological: Awake and Alert
Psychological: Calm
Objective Data
Lab Data
Lab Results
05/17/23 05:38
05/17/23 05:38
PT 16.1 Sec (11.4-14.6) H 05/12/23 04:29
INR 1.29 05/12/23 04:29
APTT 40.3 Sec (23.4-35.0) H 05/12/23 04:29
Estimated Creat Clear 111 ml/min 05/17/23 05:38
Lactic Acid 2.2 mmol/L (0.7-2.0) H 05/12/23 04:29
Total Bilirubin 0.5 mg/dl (0.2-1.3) 05/12/23 04:29
AST 141 U/L (14-36) H 05/12/23 04:29
ALT 189 U/L (0-35) H 05/12/23 04:29
Alkaline Phosphatase 111 U/L (38-126) 05/12/23 04:29
Most recent labs reviewed.
Micro Results:
05/09/23 01:35 Wound Culture - Final
Abdomen Streptococcus pyogenes
Gram Stain - Final
05/09/23 01:35 Anaerobic Culture - Final
Abdomen NO ANAEROBES ISOLATED
05/08/23 23:35 Blood Culture - Final
Blood/Venous No Growth - Final Report
05/08/23 23:35 Blood Culture - Final
Blood/Venous No Growth - Final Report
05/09/23 04:57 MRSA Screen - Final
Nose No Methicillin Resistant Staphylococcus aureus isolated.
05/09/23 11:11 Chlamydia trachomatis (PCR) - Final
Urine Neisseria gonorrhoeae (PCR) - Final
05/07/23 Pelvic/transvaginal US:Findings suspicious for uterine adenomyosis. Unremarkable sonographic appearance of the ovaries bilaterally with bilateral ovarian blood flow identified. Small volume complex free fluid in the pelvis which may be the
sequela of recently ruptured hemorrhagic cyst.
05/08/23 CT a/p with IV contrast: Lack of renal excretion bilaterally. This can be seen with septic shock. Reported hypotension. Mild intrahepatic biliary dilatation. New. This would better be evaluated� by abdominal ultrasound. Moderate
abdominopelvic ascites. Progressed. Ruptured ovarian cyst not excluded. Nonvisualization of the appendix. Acute appendicitis cannot be excluded.
05/10/23 CXR: Findings suggesting severe pulmonary edema. Bilateral perihilar and lower lobe pneumonia cannot be excluded. Significantly progressed.
05/11/23 CXR: There is a new endotracheal tube with tip in the trachea approximately 1.5 cm above the smith. Marked widespread bilateral central parenchymal opacification is again seen without significant change.
05/12/23 CXR:�Patchy foci of airspace consolidation bilaterally. Improved aeration compared to prior study. Differential diagnosis includes pulmonary edema, multifocal pneumonia, and/or ARDS. Speed of improvement is most suggestive of improved
pulmonary edema.
Care Review
Plan reviewed with: Physician (Hospitalist)
--- NOTE | 2023-05-17 16:23 | W.DS.TRANS ---
DC Summary - [employer]
-
Discharge Instructions:
Discharge Diagnosis/Procedures Sepsis, Toxic shock syndrome.
Peritonitis
Diet Regular
Activity No strenuous activity
Additional Activity Do not lift over 15 pounds or perform strenuous
activities for 4 weeks post-operatively
Driving Restrictions No driving if too sore or taking narcotics
Bathing Restrictions OK to Shower
Wound Care Keep incision clean and dry. Jack to be
removed at 14 days postoperatively. Cover with
dry gauze or ABD as needed to prevent any
pulling on the ade and for any drainage.
Instructions:
Stand-Alone Forms:
Changes to Home Medications: Yes
Discharge Medications:
DC Medications w/original date entered in [employer]
acetaminophen 325 mg tablet 650 mg PO Q4HPRN PRN mild pain 11/19/19
Cbd Gummies 1 tab PO DAILY PRN ANXIETY 05/12/23
Seed Probiotic 1 cap PO DAILY Gastrointestinal Issue 05/12/23
sertraline 100 mg tablet 150 mg PO DAILY Mental Health/Anxiety 05/12/23
Lactobac/Bifidobac [Visbiome] 1 cap PO DAILY #60 caps 05/17/23
amoxicillin 500 mg capsule 500 mg PO TID #21 caps 05/17/23
Home Medication Changes
Complete antibiotics course for additional 7 days
Pending Results: No
--- NOTE | 2023-05-17 17:19 | CM ---
Patient has been medically cleared for discharge to home with VN, PT/OT evaluation and services. Patient preference is [facility]. Referral sent. will transport home.
--- NOTE | 2023-05-17 17:32 | PTCARENOTE ---
Patient discharged home. Midline removed by IV nurse, telemetry pack removed by this RN. Discharge instructions and medications reviewed, patient and spouse both verbalize understanding, extra ABD pads and gauze provided to patient for midline
incision. Belongings gathered by patient and spouse, patient taken down to spouse's car at [facility] via staff escort and wheelchair.
== END 2023-05-17 17:56 | disposition home health service (06) | DRG 853 ==
LOC: 2 NORTH 23:00
PROVIDERS: Clinical Nurse Specialist Family Health; Internal Medicine Critical Care Medicine; Nurse Practitioner Family; Nurse Practitioner Primary Care; Registered Nurse; Specialist; ADMITTING PHYSICIAN Hospitalist; ATTENDING PHYSICIAN Internal Medicine; CONSULT PHYSICIAN Internal Medicine Cardiovascular Disease; CONSULT PHYSICIAN Internal Medicine Critical Care Medicine; CONSULT PHYSICIAN Internal Medicine Infectious Disease; CONSULT PHYSICIAN Obstetrics & Gynecology; CONSULT PHYSICIAN Surgery; EMERGENCY PHYSICIAN Emergency Medicine; FAMILY PHYSICIAN Nurse Practitioner Family; OTHER PHYSICIAN Specialist
PROC: 0W9G0ZZ Drainage of Peritoneal Cavity, Open Approach (ICD-10-PCS; 2023-05-08)
PROC: 0BH17EZ Insertion of Endotracheal Airway into Trachea, Via Natural or Artificial Opening (ICD-10-PCS; 2023-05-09)
PROC: 5A1945Z Respiratory Ventilation, 24-96 Consecutive Hours (ICD-10-PCS; 2023-05-09)
PROC: 30243S1 Transfusion of Nonautologous Globulin into Central Vein, Percutaneous Approach (ICD-10-PCS; 2023-05-10)
PROC: 5A09357 Assistance with Respiratory Ventilation, Less than 24 Consecutive Hours, Continuous Positive Airway Pressure (ICD-10-PCS; 2023-05-10)
DX: A48.3 Toxic shock syndrome (principal); I21.A1 Myocardial infarction type 2; K72.00 Acute and subacute hepatic failure without coma; K65.9 Peritonitis, unspecified; J96.01 Acute respiratory failure with hypoxia; I50.21 Acute systolic (congestive) heart failure; I42.8 Other cardiomyopathies; E87.20 Acidosis, unspecified; N17.9 Acute kidney failure, unspecified; E87.1 Hypo-osmolality and hyponatremia; D61.818 Other pancytopenia; D68.8 Other specified coagulation defects; R18.8 Other ascites; Z99.11 Dependence on respirator [ventilator] status; K56.7 Ileus, unspecified; E87.3 Alkalosis; N70.93 Salpingitis and oophoritis, unspecified; B95.0 Streptococcus, group A, as the cause of diseases classified elsewhere; I08.1 Rheumatic disorders of both mitral and tricuspid valves; E87.6 Hypokalemia; N83.202 Unspecified ovarian cyst, left side; N83.201 Unspecified ovarian cyst, right side; E83.51 Hypocalcemia; D70.3 Neutropenia due to infection; N73.9 Female pelvic inflammatory disease, unspecified; F41.9 Anxiety disorder, unspecified; E86.0 Dehydration; F32.A Depression, unspecified
CPT/HCPCS: 93308; 36600; 71045; 74177; 80048; 80051; 80053; 80076; 81003; 81015; 82248; 82330; 82570; 82805; 83605; 83690; 83735; 83880; 84100; 84132; 84134; 84300; 84302; 84478; 84484; 84703; 85014; 85018; 85025; 85027; 85379; 85384; 85610; 85730; 86780; 86850; 86900; 86901; 87040; 87070; 87075; 87077; 87147; 87205; 87491; 87591; 93005; 93306; 93321; 93325; 94002; 94003; 94660; 96361; 96365; 96375; 96376; 97116; 97163; 97167; 97530; 97535; 99291; 99292; J1569; P9045; Q9967

== ENCOUNTER → 2023-08-07 10:12 | Outpatient (REF) | payer OTHER, SELFPAY | LOC: HWRCS 10:12 | PROVIDERS: ATTENDING PHYSICIAN Physician Assistant; FAMILY PHYSICIAN Family Medicine | DX: I50.20 Unspecified systolic (congestive) heart failure (principal); I42.8 Other cardiomyopathies; I34.0 Nonrheumatic mitral (valve) insufficiency | CPT/HCPCS: 93306 ==